=== PATIENT | female | born 1975 | race Two or more races ===

== ENCOUNTER 2020-05-03 15:06 | Outpatient (REF) | payer OTHER, SELFPAY ==
--- NOTE | 2020-05-03 | MM_ITS ---
EXAMINATION: MM DIAGNOSTIC DIGITAL BREAST TOMOSYNTHESIS, BILATERAL US DIAGNOSTIC ULTRASOUND BREAST, RIGHT CLINICAL INFORMATION: Patient notes new palpable area of concern upper outer right breast since 04/12/2020. No discharge. The lifetime risk of breast cancer based on the Tyrer-Cuzick Model is 16%. COMPARISON: Mammography: 06/27/2019, 11/04/2018, 08/29/2017, 06/27/2016; ultrasound left breast 07/07/2016, ultrasound right breast 06/27/2019 and 12/30/2019 TECHNIQUE: Digital breast tomosynthesis is performed in both the craniocaudal and mediolateral oblique views along with computer-aided detection (CAD). Synthesized 2D images are generated from the tomosynthesis. Additional right MLO view is provided. Symptom marker placed over area of concern upper outer right breast. Ultrasound right breast is targeted to the upper outer quadrant. Patient is able to point to area of new palpable concern at time of imaging. Palpable concern superior and medial to prior cyst. Grayscale imaging and color Doppler are performed without and with harmonics. FINDINGS: The breasts are heterogeneously dense, which may obscure small masses (ACR BI-RADS breast composition Category c). Mammography shows no significant changes from prior studies. Parenchymal asymmetry upper right breast is decreased since 2018. There is no developing density. Neither breast shows significant mass or architectural abnormality or abnormal calcifications. The axilla and skin contours are unremarkable. Ultrasound demonstrates a simple cyst lateral right 10:00 position 9 cm from nipple measuring 1.2 x 0.9 x 0.6 cm. Prior measurements 1.2 x 0.7 x 0.7 cm on ultrasound 12/30/2019 and 1.5 x 0.9 x 0.9 cm on ultrasound 06/27/2019. There is no other cystic or solid mass or architectural abnormality or focal duct ectasia in the targeted areas. No skin thickening or edema tracking in soft tissue planes. Results are discussed with the patient at time of visit. Patient should be managed based on the clinical impression. If clinically indicated, further evaluation may be considered with surgical consult. Decision to proceed with biopsy should be based on clinical grounds and degree of clinical concern. MM/MM tomosynthesis diagnostic BI IMPRESSION: 1. No mammographic evidence of malignancy or significant change from prior studies. 2. Stable simple cyst lateral upper outer right breast. No solid mass or architectural abnormality. ASSESSMENT: BI-RADS 2: Benign RECOMMENDATION: 1. Patient should be managed based on the clinical impression. If clinically indicated, further evaluation may be considered with surgical consult. Decision to proceed with biopsy should be based on clinical grounds and degree of clinical concern. 2. Otherwise, routine annual screening mammography. This patient's information was entered into a reminder system with a target due date for their next mammogram.
== END 2020-05-03 15:07 | disposition home or self-care (01) ==
LOC: HO.MAMMO 15:06
PROVIDERS: PCP Family Medicine; Visit Provider Family Medicine
DX: N63.11 Unspecified lump in the right breast, upper outer quadrant (principal)
CPT/HCPCS: 76642; 77062; 77063; 77066; 77067

== ENCOUNTER 2021-03-01 08:38 | Emergency (ER) | payer OTHER, SELFPAY ==
--- NOTE | ~2021-03-01 | XR_ITS ---
EXAMINATION: XR CERVICAL SPINE CLINICAL INFORMATION: Neck pain. No known trauma. COMPARISON: None TECHNIQUE: Cervical spine is imaged in 4 views. FINDINGS: The vertebral bodies are normal in height. There is no cervical vertebral compression, disc narrowing, erosive change, destructive process, or prevertebral soft tissue swelling. There is normal bony mineralization. Some minor anterior vertebral body spurring is present mid cervical spine. The odontoid is unremarkable. Lung apices show no pneumothorax. There are chain jinny seen at the left medial apex. XR/XR cervical spine 3V IMPRESSION: Minor spurring cervical vertebral bodies. No vertebral compression, disc narrowing, or spondylolisthesis.
[2021-03-01 08:42] VITALS: BP 123/63; PULSE 66; RESP 16; TEMP 36.7; O2SAT 96
--- NOTE | 2021-03-01 08:46 | ED_ITS ---
HPI - General Adult General Chief complaint: General Medical Stated complaint: neck, shoulder pain Time Seen by Provider: 03/01/21 08:46 Source: patient Mode of arrival: ambulatory Limitations: no limitations History of Present Illness HPI narrative: Patient with cervical pain radiating to the right shoulder and elbow. Pain started a few months back, now with increasing pain in neck and shoulder. Onset (ago): week(s) Radiation: extremity Severity: mild Pain Consistency: intermittent Associated symptoms: denies other symptoms Related Data Previous Rx's Medication Instructions Recorded cyclobenzaprine 10 mg tablet 10 mg PO TID #10 tab 03/01/21 naproxen 500 mg tablet (Naprosyn) 500 mg PO BID #20 tab 03/01/21 Allergies Allergy/AdvReac Type Severity Reaction Status Date / Time No Known Allergies Allergy Unverified 01/05/20 16:19 cats/dogs Allergy Unknown itch Uncoded 08/27/15 00:00 Numerous food and Allergy Unknown Uncoded 10/04/14 00:00 environmenta Review of Systems Constitutional: Constitutional: Reports no additional constitutional complaints Eyes: Eyes: Reports no additional eye complaints ENT: Denies dizziness Cardiovascular: Cardiovascular: Reports no additional cardiovascular complaints Respiratory: Respiratory: Reports as per HPI Gastrointestinal: Gastrointestinal: Reports no additional gastrointestinal complaints Genitourinary: Genitourinary: Reports no additional female genitourinary complaints Musculoskeletal: Musculoskeletal: Reports no additional musculoskeletal complaints Integumentary/Breasts: Skin/Breast: Denies rash Neurologic: Reports system reviewed and no additional complaints, except as documented, Denies dizziness and Denies Sensory deficit (Neuro) Psychiatric: Psychiatric: Denies anxiety FOR[facility]LY [facility] Social History Social History Advance Directives: No Advance Directives Information Provided: No Physical Exam Vital Signs: Vital Signs: Last Vital Signs Temp 98.0 F 03/01/21 08:42 Pulse 66 03/01/21 08:42 Resp 16 03/01/21 08:42 BP 123/63 03/01/21 08:42 Pulse Ox 96 03/01/21 08:42 Body Mass Index 20.0 Const: General: healthy appearing Nutritional Appearance: average body habitus Orientation/consciousness: oriented to person and patient oriented x3 Limitations: no limitations HENMT: Head: Yes normal to inspection Ears: external ears normal General nose exam: Normal external nose present Mouth: Normal oral and palatal mucosa present and oropharynx normal Throat: Yes posterior oropharynx normal Eyes: General: appearance normal, both eyes and all related structures Neck: Other: Pain with range of motion of neck with radiation down right arm Neck: Yes normal visual inspection Chest: Chest palpation & inspection: normal inspection of the chest Resp: Auscultation: clear to auscultation bilaterally Cardio: Jugular venous distension: no JVD Rate: regular rate Rhythm: regular rhythm Heart sounds: S1 normal heart sound present and S2 normal heart sound present GI: Inspection: Yes normal to inspection Palpation (GI): Soft to palpation, nontender and No hepatosplenomegaly present Auscultation: normal bowel sounds : General: Yes no CVA tenderness Back/Spine/Pelvis: Back: no CVA tenderness Skin: General skin exam: no rashes or lesions noted Neuro: General: oriented to person and patient oriented x3 Cranial nerves: Yes CN's II-XII intact bilaterally Motor exam (neuro): 5/5 motor strength present throughout Sensory Exam: No Sensory deficit (Neuro) Extrem: General: Yes normal to inspection Psych: Appearance: grossly normal Course Reevaluation(s) Reevaluation #1: patient with radicular neck pain, xray with minor arthritic changes will dc on NSAIDS and flexeril Time: 10:02 Medical Decision Making Imaging Data cervical: Radiologist's impression: IMPRESSION: Minor spurring cervical vertebral bodies. No vertebral compression, disc narrowing, or spondylolisthesis. Discharge Plan Discharge Clinical Impression: Cervical radicular pain Patient Disposition: Home, Self-Care Instructions: Cervical Radiculopathy (ED) Prescriptions: New cyclobenzaprine 10 mg tablet 10 mg PO TID Qty: 10 RF: 0 naproxen [Naprosyn] 500 mg tablet 500 mg PO BID Qty: 20 RF: 0 Referrals: Magali Ohara MD [Primary Care Provider] - 1 week
[2021-03-01] MEDS: Ketorolac Tromethamine 60 MG/2 ML VIAL IM (08:57)
== END 2021-03-01 10:10 | disposition home or self-care (01) ==
PROVIDERS: Emergency Provider Emergency Medicine; PCP Family Medicine
DX: M54.12 Radiculopathy, cervical region (principal)
CPT/HCPCS: 72040; 96372; 99283; 99284; J1885

== ENCOUNTER 2021-04-18 08:00 | Outpatient (RCR) | payer OTHER, SELFPAY | END 2021-04-25 13:15 | disposition home or self-care (01) | LOC: HO.PT 08:00 | PROVIDERS: PCP Family Medicine; Visit Provider Family Medicine | DX: M54.2 Cervicalgia (principal) | CPT/HCPCS: 97110; 97140; 97161 ==

== ENCOUNTER 2021-05-15 10:55 | Outpatient (REF) | payer OTHER, SELFPAY ==
--- NOTE | ~2021-05-15 | MM_ITS ---
EXAMINATION: MM SCREENING DIGITAL BREAST TOMOSYNTHESIS, BILATERAL CLINICAL INFORMATION: Screening. Asymptomatic. The lifetime risk of breast cancer based on the Tyrer-Cuzick Model is 13%. COMPARISON: Mammography: 05/03/2020, 06/27/2019, 11/04/2018, 08/29/2017, 06/27/2016; targeted right breast ultrasound 05/03/2020, 12/30/2019, 06/27/2019 TECHNIQUE: Digital breast tomosynthesis is performed in both the craniocaudal and mediolateral oblique views along with computer-aided detection (CAD). Synthesized 2D images are generated from the tomosynthesis. FINDINGS: The breasts are heterogeneously dense, which may obscure small masses (ACR BI-RADS breast composition Category c). There are no significant masses, abnormal calcifications, or other abnormalities. There is a fibronodular parenchymal pattern similar to prior studies. There is no developing density or architectural abnormality. The axilla and skin contours are unremarkable. No significant changes. MM/MM tomosynthesis screening BI IMPRESSION: No mammographic evidence of malignancy. ASSESSMENT: BI-RADS 1: Negative RECOMMENDATION: Routine annual mammography screening. This patient's information was entered into a reminder system with a target due date for their next mammogram.
== END 2021-05-15 10:56 | disposition home or self-care (01) ==
LOC: HO.MAMMO 10:55
PROVIDERS: Visit Provider Family Medicine
DX: Z12.31 Encounter for screening mammogram for malignant neoplasm of breast (principal)
CPT/HCPCS: 77063; 77067

== ENCOUNTER 2021-12-09 10:10 | Outpatient (REF) | payer OTHER, SELFPAY ==
--- NOTE | ~2021-12-09 | XR_ITS ---
EXAMINATION: XR CERVICAL SPINE CLINICAL INFORMATION: Cervical pain COMPARISON: Chest x-ray 03/01/2021 TECHNIQUE: 3 views of the cervical spine were obtained. FINDINGS: Normal cervical lordosis. The vertebral heights, alignment and disc heights are normal. There is minimal ventral lordosis C5-C6 disc level. No visible acute fracture or dislocation seen. The prevertebral and paravertebral soft tissues are normal. XR/XR cervical spine 3V IMPRESSION: Unremarkable cervical spine examination.
[2021-12-09 11:21] LABS: MANUAL DIFF FLAG NO
[2021-12-09 11:37] LABS: Basophils Percent Auto 0.3 % (0-2); Eosinophils Absolute Auto 0.1 X10*3/uL (0.0-0.4); Eosinophils Percent Auto 1.2 % (0-4); Hematocrit 41.9 % (37.0-47.0); Hemoglobin 14.2 g/dl (12.0-16.0); Imm Gran Abs Auto 0.03 X10*3/uL (0.00-0.03); Imm Gran Pct Auto 0.4 % (0.0-0.4); Lymphocytes Absolute Auto 1.5 X10*3/uL (1.2-4.9); Lymphocytes Percent Auto 21.5 % (20-40); Mean Corpuscular HGB Conc 33.9 g/dl (31.0-35.0); Mean Corpuscular Hemoglobin 31.5 pg (27.0-33.0); Mean Corpuscular Volume 92.9 fL (80.0-98.0); Mean Platelet Volume 10.8 fL (9.4-12.3); Monocytes Absolute Auto 0.4 X10*3/uL (0.1-1.2); Monocytes Percent Auto 5.9 % (2-11); Neutrophils Absolute Auto 4.8 x10*3/uL (2.0-8.3); Neutrophils Percent Auto 70.7 % (45-73); Platelet Count 227 X10*3/uL (160-400); Red Blood Count 4.51 X10*6/uL (4.20-5.50); Red Cell Distribution Width 11.9 % (11.0-16.0); White Blood Count 6.8 X10*3/uL (4.8-10.8)
[2021-12-09 12:27] LABS: TSH reflex Free T4 1.63 uIU/mL (0.32-4.0); Vitamin B12 314 pg/mL (200-900)
[2021-12-09 12:28] LABS: Alanine Aminotransferase 10 U/L (0-31); Albumin Level 4.4 g/dL (3.5-5.0); Alkaline Phosphatase 57 U/L (39-117); Anion Gap 14 (12-20); Aspartate Amino Transferase 14 U/L (5-31); Bilirubin Total 0.9 mg/dL (0.0-1.0); Blood Urea Nitrogen 10 mg/dL (9-16); Calcium 8.9 mg/dL (8.4-10.2); Carbon Dioxide 26 mmol/L (22-29); Chloride 103 mmol/L (96-108); Cholesterol 234 mg/dL; Estimated Glomerular Filt Rate > 60; Glucose Fasting 87 mg/dL (60-99); HDL Cholesterol 77 mg/dL; LDL Cholesterol Calculated 141 mg/dl; Potassium 4.3 mmol/L (3.3-5.1); Sodium 139 mmol/L (135-145); Total Protein 7.4 g/dL (6.5-8.0); Triglycerides 83 mg/dL
[2021-12-14 12:42] LABS: Vitamin D 25-OH, D2 <4 ng/mL; Vitamin D 25-OH, D3 18 ng/mL; Vitamin D 25-OH, Total 18 ng/mL (30-100)
== END 2021-12-09 10:11 | disposition home or self-care (01) ==
LOC: HO.HMGCX 10:10
PROVIDERS: PCP Internal Medicine; Visit Provider Internal Medicine
DX: K21.9 Gastro-esophageal reflux disease without esophagitis (principal); M19.90 Unspecified osteoarthritis, unspecified site; M51.26 Other intervertebral disc displacement, lumbar region; M54.12 Radiculopathy, cervical region; M79.7 Fibromyalgia; N39.3 Stress incontinence (female) (male); Z76.89 Persons encountering health services in other specified circumstances
CPT/HCPCS: 36415; 72040; 80053; 80061; 82306; 82607; 84443; 85025

== ENCOUNTER 2022-02-13 12:56 | Outpatient (REF) | payer OTHER, SELFPAY ==
--- NOTE | ~2022-02-13 | XR_ITS ---
EXAMINATION: XR SHOULDER, RIGHT CLINICAL INFORMATION: Strain injury. COMPARISON: Radiographs dated 05/07/2015. TECHNIQUE: AP external rotation, Grashey, scapular Y, and axillary views of the right shoulder. FINDINGS: Bony alignment and mineralization are normal. The glenohumeral joint is intact. The acromioclavicular and coracoclavicular interval are normal. There is no fracture or dislocation. There is increased calcific tendinitis of the right rotator cuff insertion. No foreign body is seen. There is no right pneumothorax. XR/XR shoulder RT min 2V IMPRESSION: 1. No fracture or dislocation is seen. 2. There is increased calcific tendinitis of the right rotator cuff insertion.
== END 2022-02-13 12:57 | disposition home or self-care (01) ==
LOC: HO.XRAY 12:56
PROVIDERS: PCP Internal Medicine; Visit Provider Nurse Practitioner Women's Health
DX: S46.011A Strain of muscle(s) and tendon(s) of the rotator cuff of right shoulder, initial encounter (principal)
CPT/HCPCS: 73030

== ENCOUNTER 2022-03-06 15:12 | Outpatient (REF) | payer OTHER, SELFPAY ==
--- NOTE | ~2022-03-06 | MR_ITS ---
EXAMINATION: MR SHOULDER WITHOUT CONTRAST, RIGHT CLINICAL INFORMATION: Right shoulder pain and decreased range of motion. Evaluate for rotator cuff tendon tear. COMPARISON: Most recent right shoulder radiograph dated 02/13/2022. TECHNIQUE: MRI of the right shoulder without contrast was performed on a high-field scanner. FINDINGS: ROTATOR CUFF: Ovoid low T1/low T2 signal along the distal aspect of the infraspinatus tendon measuring 1.1 x 0.4 x 1.0 cm with adjacent edema, consistent with calcific tendinitis and similar when compared to the prior radiograph. Mild degenerative cystic change within the adjacent greater tuberosity. No measurable rotator cuff tendon tear. No muscle atrophy or fatty infiltration. BICEPS: Intact. CORACOACROMIAL ARCH: The undersurface of the acromion is minimally curved with no subacromial spur. The acromioclavicular joint is normal. LABRUM/CAPSULE: No displaced labral tear. Intact joint capsule. GLENOHUMERAL JOINT/MARROW: Intact articular cartilage. No concerning lytic or blastic osseous lesion. No acute fracture or dislocation. MR/MR shoulder RT wo con IMPRESSION: Distal infraspinatus calcific tendinitis with adjacent edema, similar when compared to the prior radiograph. No measurable rotator cuff tendon tear.
== END 2022-03-06 15:13 | disposition home or self-care (01) ==
LOC: HO.MRI 15:12
PROVIDERS: Visit Provider Nurse Practitioner Women's Health
DX: S46.011A Strain of muscle(s) and tendon(s) of the rotator cuff of right shoulder, initial encounter (principal); X58.XXXA Exposure to other specified factors, initial encounter; Y93.9 Activity, unspecified; Y92.9 Unspecified place or not applicable; Y99.9 Unspecified external cause status
CPT/HCPCS: 73221

== ENCOUNTER 2022-05-21 10:54 | Outpatient (REF) | payer OTHER, SELFPAY ==
--- NOTE | ~2022-05-21 | MM_ITS ---
EXAMINATION: MM SCREENING DIGITAL BREAST TOMOSYNTHESIS, BILATERAL CLINICAL INFORMATION: Screening. Asymptomatic. The lifetime risk of breast cancer based on the Tyrer-Cuzick Model is 16%. COMPARISON: Mammography: 05/15/2021, 05/03/2020, 06/27/2019, 11/04/2018; right breast ultrasound 05/03/2020, 12/30/2019, 06/27/2019 TECHNIQUE: Digital breast tomosynthesis is performed in both the craniocaudal and mediolateral oblique views along with computer-aided detection (CAD). Synthesized 2D images are generated from the tomosynthesis. FINDINGS: The breasts are heterogeneously dense, which may obscure small masses (ACR BI-RADS breast composition Category c). Parenchymal pattern is similar to prior studies. There is fine fibronodular parenchymal pattern with scattered asymmetries upper breasts. There is no developing density or architectural abnormality. No abnormal calcifications. The axilla are unremarkable. The skin contours are smooth. No significant changes. MM/MM tomosynthesis screening BI IMPRESSION: No mammographic evidence of malignancy. ASSESSMENT: BI-RADS 2: Benign RECOMMENDATION: Routine annual mammography screening. This patient's information was entered into a reminder system with a target due date for their next mammogram.
== END 2022-05-21 10:55 | disposition home or self-care (01) ==
LOC: HO.MAMMO 10:54
PROVIDERS: PCP Internal Medicine; Visit Provider Family Medicine
DX: Z12.31 Encounter for screening mammogram for malignant neoplasm of breast (principal)
CPT/HCPCS: 77063; 77067

== ENCOUNTER 2023-01-23 13:26 | Outpatient (AMB) | payer OTHER, SELFPAY ==
[2023-01-23 13:29] VITALS: BMI 22.5
--- NOTE | 2023-01-23 13:29 | MHC.OFFVIS ---
Intake Vital Signs 01/23/23 13:29 Height 5 ft 2 in Weight 123 lb BMI 22.5 Intake Visit Reasons: New patient Annual Intake Note: has miss some periods back in may and june, menses have gotten heavier and pain A Operator Required: No Information Interpreted: non-clinical & clinical Director Title: Director Title Present (Violeta) Allergies prednisone Adverse Reaction (Mild, Verified 01/23/23 13:33) rectal bleeding cats/dogs Allergy (Unknown, Uncoded 01/23/23 13:33) itch Numerous food and environmenta Allergy (Unknown, Uncoded 01/23/23 13:33) hive Medication List - Last Reconciled 01/23/23 by Niya Dorsey CNM cetirizine 10 mg PO DAILY PRN cholecalciferol (vitamin D3) 50 mcg PO DAILY famotidine 20 mg PO BID PRN fluticasone propionate 50 mcg/actuation (Flonase Allergy Relief) 1 spray intranasal DAILY hydrocortisone 1% (Anti-Itch (hydrocortisone)) 1 appl topical BID-QID PRN ketotifen fumarate 0.025%(0.035%) ([place]) 1 drp ophthalmic (eye) BID lidocaine HCl-hydrocortison ac 3-0.5 % 1 appl MO BID 10 days pregabalin 75 mg PO BID 90 days Is last menstrual period known: Yes Last menstrual period: 01/02/23 Post menopausal: No HPI New patient Annual HPI Details 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 She is doing pretty well though her periods have gotten little bit heavier and cramp ear. She also missed a period in May in June their normal otherwise she takes Midol in the purple box for the cramps when she gets a period and it works well for her. Tele health concerns she has of the herniated discs sent allergies she gets cortisone injections every now and then and she goes to physical therapy for her back when she needs to. She also has some stress incontinence which is a challenge and she wears panty liners to manage that. She does do Kegel exercises and she also eats well and takes care of herself and lifts hand weights at home. [facility] Medical History Ectopic Multiple allergies Herniated lumbar disc without myelopathy GERD (gastroesophageal reflux disease) Fibromyalgia Surgical History H/O tubal ligation Family History (Updated 01/23/23 @ 13:36 by DYLLAN Rodarte) Maternal Aunt Breast cancer Mother Fibromyalgia Paternal Grandfather Colon cancer Social History Housing: House Patient Tobacco Use Status: Never used Tobacco e-Cigarette/Vaping Use: Never Used Second Hand Smoke Exposure: No service: No Current occupational status: disabled Cognitive needs: No Hearing needs: No Vision needs: No Female Reproductive History Menstrual Age of Menarche: 13 Duration of menses: 3-5 days Date of last menstrual period: 01/02/23 control method: other (tubal ligation) Total pregnancies: 4 Full term: 2 Number of Living Children: 2 Ab spontaneous: 1 Ectopics: 1 Date of last pap smear: 08/16/04 (negative) History of abnormal pap smear: Yes Date of Mammogram: 05/21/22 Physical Exam Vital Signs: BMI result Body Mass Index 22.5 Const General: healthy appearing, comfortable, no acute distress, well developed and alert Nutritional Appearance: average body habitus Orientation/consciousness: patient oriented x3 Limitations: no limitations HEENT Head: Yes normocephalic Neck Neck: Yes normal visual inspection Chest Chest palpation & inspection: normal inspection of the chest Breast/axilla inspection: normal inspection of the breasts and normal inspection of the axillae Breast/axilla palpation: normal palpation of the breasts and normal palpation of the axillae Resp Effort & Inspection: normal respiratory effort GI Inspection: Yes normal to inspection, No Abdominal wall edema and No distended Palpation (GI): Soft to palpation and nontender Other: External service order clerk exam within normal limits vagina is pink and moist and healthy cervix multiparous pink moist with very clear to beige normal appearing mucus. Cervix long close thick mobile nontender uterus is anteverted mobile nontender feels slightly enlarged to about an 8 weeks size anterior. Adnexa nontender very good tone with Kegel. General: Yes bladder normal to palpation External Female Exam: normal external appearance and normal appearance of the urethra Speculum Exam - Vagina: normal appearance of the vagina, normal palpation and normal vaginal discharge Speculum Exam - Cervix: normal appearance of the cervix, normal palpation and nontender Bimanual exam- vagina & uterus: normal bimanual exam, normal palpation, uterine size normal, bladder normal to palpation, consistency normal, normal palpation, uterine mobility normal, uterine shape normal, No Cervical tenderness present, non-tender and no cervical motion tenderness Bimanual Exam- Adnexa, other: normal adnexae, no masses, normal and No adnexal tenderness Neuro General: patient oriented x3 Assessment & Plan Assessment & Plan (1) Stress incontinence: Code(s): N39.3 - Stress incontinence (female) (male) (2) Encounter for routine gynecological examination: Code(s): Z01.419 - Encounter for gynecological examination (general) (routine) without abnormal findings (3) Bulky or enlarged uterus: Comment: May be within normal limits anteverted feels possibly consistent with an 8 weeks size uterus will get ultrasound to see if there are fibroids. Code(s): N85.2 - Hypertrophy of uterus (4) H/O dysmenorrhea: Code(s): Z87.42 - Personal history of other diseases of the female genital tract Plan -----Discussed in this visit the following: healthy balanced diet, regular and consistent exercise, getting recommended health screens, doing the best she can for her particular health concerns, kegel exercises, pap smear screening and followup recommendations, mammography screening and SBE, normal changes in cycles in her life stage--- . She is up-to-date on her mammograms. She is doing her best to manage her weight in fact she is aware that she has gained about 10 lb and she feels it so she is mindful. She is within the normal weight range and I reassured her of that. Discussed ordering a pelvic ultrasound to see if she might have fibroids though her uterus is not that enlarged and discussed that if they were found she would most likely not be in the range of needing surgical intervention. Since the might all is helping her with her cramps she probably would not be interested in further intervention though 1 that might be a possibility would include the Mirena IU S. It have some other side effects that could be discussed she were interested. The missed. Could be down to either side effects from other medications or random this or lona menopausal changes she does experience hot flashes occasionally.. She is very good tone with Kegel and she does her own actually but since she does have some incontinence am placing a referral for physical therapy for her she is familiar with [facility] on [facility] 4th floor because she goes there for her back periodically. She is interested in this We will see her after the ultrasound to discuss the results. Orders: Orders CT NG by PCR Today Z20.2 - Contact with and (suspected) exposure to infections with a predominantly sexual mode of transmission US pelvic and transvaginal Today N39.3 - Stress incontinence (female) (male), N85.2 - Hypertrophy of uterus, Z01.419 - Encounter for gynecological examination (general) (routine) without abnormal findings, Z87.42 - Personal history of other diseases of the female genital tract Bacterial Vaginosis Panel Today Z20.2 - Contact with and (suspected) exposure to infections with a predominantly sexual mode of transmission Pap Smear Today C53.9 - Malignant neoplasm of cervix uteri, unspecified Referrals Pelvic Smelting Engineer Referral M62.89 - Other specified disorders of muscle, N39.3 - Stress incontinence (female) (male), Z01.419 - Encounter for gynecological examination (general) (routine) without abnormal findings Coding Level of Care Code New Pt Prev Care 40-64y(75026) Diagnoses Stress incontinence N39.3 Encounter for routine gynecological examination Z01.419 Bulky or enlarged uterus N85.2 H/O dysmenorrhea Z87.42
== END 2023-01-23 15:44 | disposition home or self-care (01) ==
PROVIDERS: PCP Internal Medicine; Visit Provider Advanced Practice Midwife
DX: Z01.419 Encounter for gynecological examination (general) (routine) without abnormal findings (principal); N39.3 Stress incontinence (female) (male); N85.2 Hypertrophy of uterus; Z87.42 Personal history of other diseases of the female genital tract
CPT/HCPCS: 99386

== ENCOUNTER 2023-01-23 13:26 | Outpatient (REF) | payer OTHER, SELFPAY ==
[2023-01-23 17:24] LABS: CT PCR NOT DETECTED (Not Detect.); NG PCR NOT DETECTED (Not Detect.)
[2023-01-24 11:55] LABS: BV Int Neg Control Negative (Negative); BV Int Pos Control Positive (Positive)
[2023-01-29 01:38] LABS: HPV mRNA E6/E7 rflx Not Detected (Not Detected)
== END 2023-01-23 13:27 | disposition home or self-care (01) ==
LOC: HO.LNP 13:26
PROVIDERS: PCP Internal Medicine; Visit Provider Advanced Practice Midwife
DX: Z01.419 Encounter for gynecological examination (general) (routine) without abnormal findings (principal); Z11.51 Encounter for screening for human papillomavirus (HPV); C53.9 Malignant neoplasm of cervix uteri, unspecified; Z20.2 Contact with and (suspected) exposure to infections with a predominantly sexual mode of transmission; N39.3 Stress incontinence (female) (male); N85.2 Hypertrophy of uterus; Z87.42 Personal history of other diseases of the female genital tract
CPT/HCPCS: 0353U; 87480; 87510; 87624; 87660; 88142

== ENCOUNTER 2023-02-23 08:18 | Outpatient (REF) | payer OTHER, SELFPAY ==
[2023-02-23 08:39] LABS: MANUAL DIFF FLAG NO
[2023-02-23 09:08] LABS: Basophils Percent Auto 0.2 % (0-2); Eosinophils Absolute Auto 0.1 X10*3/uL (0.0-0.4); Eosinophils Percent Auto 0.8 % (0-4); Hematocrit 39.9 % (37.0-47.0); Hemoglobin 13.7 g/dl (12.0-16.0); Imm Gran Abs Auto 0.02 X10*3/uL (0.00-0.03); Imm Gran Pct Auto 0.3 % (0.0-0.4); Lymphocytes Absolute Auto 1.7 X10*3/uL (1.2-4.9); Lymphocytes Percent Auto 26.7 % (20-40); Mean Corpuscular HGB Conc 34.3 g/dl (31.0-35.0); Mean Corpuscular Hemoglobin 30.9 pg (27.0-33.0); Mean Corpuscular Volume 89.9 fL (80.0-98.0); Mean Platelet Volume 10.6 fL (9.4-12.3); Monocytes Absolute Auto 0.4 X10*3/uL (0.1-1.2); Monocytes Percent Auto 5.8 % (2-11); Neutrophils Absolute Auto 4.1 x10*3/uL (2.0-8.3); Neutrophils Percent Auto 66.2 % (45-73); Platelet Count 247 X10*3/uL (160-400); Red Blood Count 4.44 X10*6/uL (4.20-5.50); White Blood Count 6.2 X10*3/uL (4.8-10.8)
[2023-02-23 09:42] LABS: Alanine Aminotransferase 6 U/L (0-31); Albumin Level 4.1 g/dL (3.5-5.0); Alkaline Phosphatase 59 U/L (39-117); Anion Gap 11 (12-20); Aspartate Amino Transferase 12 U/L (5-31); Bilirubin Total 0.6 mg/dL (0.0-1.0); Blood Urea Nitrogen 10 mg/dL (9-16); Calcium 9.1 mg/dL (8.4-10.2); Carbon Dioxide 25 mmol/L (22-29); Chloride 106 mmol/L (96-108); Cholesterol 215 mg/dL (<200); Estimated Glomerular Filt Rate > 60; Glucose Fasting 91 mg/dL (60-99); HDL Cholesterol 59 mg/dL (>40); LDL Cholesterol Calculated 139 mg/dL (<100); Potassium 4.2 mmol/L (3.3-5.1); Sodium 138 mmol/L (135-145); Total Protein 7.3 g/dL (6.5-8.0); Triglycerides 86 mg/dL (<150)
[2023-02-23 09:57] LABS: TSH reflex Free T4 1.59 uIU/mL (0.32-4.0)
== END 2023-02-23 08:19 | disposition home or self-care (01) ==
LOC: HO.LAB 08:18
PROVIDERS: PCP Internal Medicine; Visit Provider Internal Medicine
DX: M79.7 Fibromyalgia (principal); M51.26 Other intervertebral disc displacement, lumbar region; K21.9 Gastro-esophageal reflux disease without esophagitis; N39.3 Stress incontinence (female) (male); E55.9 Vitamin D deficiency, unspecified; M19.90 Unspecified osteoarthritis, unspecified site
CPT/HCPCS: 36415; 80053; 80061; 84443; 85025

== ENCOUNTER 2023-02-24 11:03 | Outpatient (AMB) | payer OTHER, SELFPAY ==
[2023-02-24 11:04] VITALS: BP 120/76; PULSE 75; O2SAT 100; BMI 22.7
--- NOTE | 2023-02-24 11:04 | MHC.PC.OV ---
Vital Signs 02/24/23 11:04 Height 5 ft 2 in Weight 124 lb 2 oz BMI 22.7 BP 120/76 Blood Pressure Location Rt brachial Position Sitting Pulse 75 Pulse Source Pulse Oximeter Pulse Oximetry (%) 100 Oxygen Delivery Method Room Air Intake Visit Reasons: 3M follow up fibromyalgia, Rescheduled from 01/23 Allergies prednisone Adverse Reaction (Mild, Verified 02/24/23 11:05) rectal bleeding cats/dogs Allergy (Unknown, Uncoded 01/23/23 13:33) itch Numerous food and environmenta Allergy (Unknown, Uncoded 01/23/23 13:33) hive Medication List - Last Reconciled 02/24/23 by Rodríguez Bonds MD cetirizine 10 mg PO DAILY PRN cholecalciferol (vitamin D3) 50 mcg PO DAILY famotidine 20 mg PO BID PRN fluticasone propionate 50 mcg/actuation (Flonase Allergy Relief) 1 spray intranasal DAILY hydrocortisone 1% (Anti-Itch (hydrocortisone)) 1 appl topical BID-QID PRN ketotifen fumarate 0.025%(0.035%) ([place]) 1 drp ophthalmic (eye) BID lidocaine HCl-hydrocortison ac 3-0.5 % 1 appl SC BID 10 days pregabalin 75 mg PO BID 90 days Tobacco use date assessed: 02/24/23 Dental Screening Dental Screen Date: 02/24/23 Did you have a dental visit in the last 12 months?: Yes Did you have a dental problem in the last 6 months where you did not have access to dental care?: No Was dental information given to patient?: Patient has dentist HPI 3M follow up fibromyalgia, Rescheduled from 01/23 HPI Details Patient is a 47-year-old female Patient is complaining of pigmentation on her face which has been getting worse She is requesting a dermatology referral which I have placed for her Labs done recently reviewed with the patient Patient have a history of fibromyalgia which was initially diagnosed by teletype adjuster years ago. Currently she is on Lyrica 75 mg b.i.d. she is doing well with this medication She also have acid reflux patient had a barium swallow done at [facility] and was started on famotidine 20 mg b.i.d.. She was instructed to avoid NSAIDs, medication refill sent Allergies: Patient is going to Dr. Boyce and getting allergy shots every 3 or 4 week. She is also on Flonase nasal spray and Zyrtec. History of herniated disc at L4-L5, stable at this time usually pain radiates to left leg patient says that she is disabled because of that. She goes to a pain management at [facility] for back injections. Patient sees that she was having back pain and got a cortisone injection since she has seen last. Stress incontinence. Continue Kegel exercises Follow-up 3 months for physical exam [facility] Medical History Ectopic Multiple allergies Herniated lumbar disc without myelopathy GERD (gastroesophageal reflux disease) Fibromyalgia Surgical History H/O tubal ligation Family History Maternal Aunt Breast cancer Mother Fibromyalgia Paternal Grandfather Colon cancer Social History Housing: House Patient Tobacco Use Status: Never used Tobacco e-Cigarette/Vaping Use: Never Used Second Hand Smoke Exposure: No service: No Current occupational status: disabled Cognitive needs: No Hearing needs: No Vision needs: No Female Reproductive History Menstrual Age of Menarche: 13 Questionnaire PHQ-9 Over the last 2 weeks, how often have you been bothered by any of the following problems? 1. Little interest or pleasure in doing things: not at all 2. Feeling down, depressed, or hopeless: not at all 3. Trouble falling or staying asleep, or sleeping too much: not at all 4. Feeling tired or having little energy: not at all 5. Poor appetite or overeating: not at all 6. Feeling bad about yourself - or that you are a failure or have let yourself or your family down: not at all 7. Trouble concentrating on things, such as reading the newspaper or watching television: not at all 8. Moving or speaking so slowly that other people could have noticed. Or the opposite - being so fidgety or restless that you have been moving around a lot more than usual: not at all 9. Thoughts that you would be better off or of hurting yourself in some way: not at all Total score: 0 Depression Screening Interpretation: Negative Depression Screening Done: Yes 28667 - PHQ-9 Billing: Yes Source: Developed by Drs. Pino Lynn, Randy Paul and colleagues, with an educational martita from [employer]. Thrive Questionnaire Date Thrive assessed: 12/06/21 AUDIT C Alcohol Use Questionnaire (AUDIT-C) 1. How often do you have a drink containing alcohol?: Never 3. How often do you have six or more drinks on one occasion?: Never Total Score: 0 Score Reviewed/Action Taken: Yes BEATRIZ-7 AMB Questionnaire BEATRIZ-7 Date BEATRIZ - 7 assessed: 02/24/23 Feeling nervous, anxious, or on edge: 0 = Not at all Not being able to stop or control worryin = Not at all Worrying too much about different things: 0 = Not at all Trouble relaxin = Not at all Being so restless that it is hard to sit still: 0 = Not at all Becoming easily annoyed or irritable: 0 = Not at all Feeling afraid as if something awful might happen: 0 = Not at all Total BEATRIZ-7 score (0-4 normal; 5-9 mild; 10-14 moderate; 15-21 severe): 0 Source: Developed by Drs. Pino Lnyn, Randy Paul and colleagues, with an educational martita from [employer]. BEATRIZ-7 Assessment Billing BEATRIZ-7 Assessment Tool: BEATRIZ-7 Assessment 36373 Review of Systems Const Denies chills and Denies fever(s) ENT Denies epistaxis and Denies nasal discharge Card Denies chest pain Resp Denies chest congestion, Denies cough and Denies hemoptysis GI Denies diarrhea and Denies nausea Skin/Breast Denies rash Neuro Reports no additional complaints Psych Reports no additional complaints Endo Reports no additional complaints Physical exam (Primary Care) Vital Signs: Last Vital Signs Pulse 75 02/24/23 11:04 BP 120/76 02/24/23 11:04 Pulse Ox 100 02/24/23 11:04 Oxygen Delivery Method Room Air 02/24/23 11:04 BMI result Body Mass Index 22.7 Tobacco/Smoking Status: Tobacco use Status Tobacco use date assessed 02/24/23 02/24/23 11:06 Patient Tobacco Use Status Never used Tobacco 02/24/23 11:06 e-Cigarette/Vaping Use Never Used 02/24/23 11:06 PHQ-9: PHQ-9 Score PHQ-9: Total score 0 02/24/23 11:56 Depression Screening Interpretation: Negative Thrive Assessment: Date of Thrive Assessment Date Thrive assessed 12/06/21 02/24/23 11:06 Const General: cooperative, comfortable and no acute distress Orientation/consciousness: patient oriented x3 HENMT Head: Yes normocephalic Eyes General: appearance normal, both eyes and all related structures Neck Neck: Yes supple Resp Effort & Inspection: normal respiratory effort, no cough and no stridor Cardio Rhythm: regular rhythm Heart sounds: S1 normal heart sound present and S2 normal heart sound present Skin General skin exam: turgor normal Neuro General: patient oriented x3, tone normal and moves all extremities Extrem Right lower extremity: no edema Left lower extremity: no edema Assessment and Plan Assessment & Plan (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 - Disorder of pigmentation, unspecified (2) Fibromyalgia: Code(s): M79.7 - Fibromyalgia (3) Herniated nucleus pulposus, L4-5 left: Code(s): M51.26 - Other intervertebral disc displacement, lumbar region (4) Acid reflux: Code(s): K21.9 - Gastro-esophageal reflux disease without esophagitis Qualifiers: Esophagitis presence: without esophagitis Qualified Code(s): K21.9 - Gastro-esophageal reflux disease without esophagitis (5) Stress incontinence in female: Code(s): N39.3 - Stress incontinence (female) (male) (6) Vitamin D deficiency: Code(s): E55.9 - Vitamin D deficiency, unspecified (7) Radiculitis of right cervical region: Code(s): M54.12 - Radiculopathy, cervical region Plan Patient is a 47-year-old female Patient is complaining of pigmentation on her face which has been getting worse She is requesting a dermatology referral which I have placed for her Labs done recently reviewed with the patient Patient have a history of fibromyalgia which was initially diagnosed by teletype adjuster years ago. Currently she is on Lyrica 75 mg b.i.d. she is doing well with this medication She also have acid reflux patient had a barium swallow done at [facility] and was started on famotidine 20 mg b.i.d.. She was instructed to avoid NSAIDs, medication refill sent Allergies: Patient is going to Dr. Boyce and getting allergy shots every 3 or 4 week. She is also on Flonase nasal spray and Zyrtec. History of herniated disc at L4-L5, stable at this time usually pain radiates to left leg patient says that she is disabled because of that. She goes to a pain management at [facility] for back injections. Patient sees that she was having back pain and got a cortisone injection since she has seen last. Stress incontinence. Continue Kegel exercises Follow-up 3 months for physical exam Orders: Referrals Dermatology Referral L81.9 - Disorder of pigmentation, unspecified Medications: New famotidine 20 mg PO BID PRN 90 tabs 0RF heartburn Refilled pregabalin 75 mg PO BID 180 caps 0RF 90 days Coding Level of Care Code Est Pt Level 4 (35437) Diagnoses Skin pigmentation disorder L81.9 Fibromyalgia M79.7 Herniated nucleus pulposus, L4-5 left M51.26 Gastroesophageal reflux disease without esophagitis K21.9 Esophagitis presence: without esophagitis Stress incontinence in female N39.3 Vitamin D deficiency E55.9 Radiculitis of right cervical region M54.12 Additional Codes BEATRIZ-7 Assessment Billing - BEATRIZ-7 Assessment Tool: BEATRIZ-7 Assessment 13636 ([id number])
== END 2023-02-24 12:37 | disposition home or self-care (01) ==
PROVIDERS: PCP Internal Medicine; Visit Provider Internal Medicine
DX: L81.9 Disorder of pigmentation, unspecified (principal); M79.7 Fibromyalgia; M51.26 Other intervertebral disc displacement, lumbar region; K21.9 Gastro-esophageal reflux disease without esophagitis; N39.3 Stress incontinence (female) (male); E55.9 Vitamin D deficiency, unspecified; M54.12 Radiculopathy, cervical region
CPT/HCPCS: 99214

== ENCOUNTER 2023-02-24 13:02 | Outpatient (REF) | payer OTHER, SELFPAY ==
--- NOTE | ~2023-02-24 | US_ITS ---
EXAMINATION: US PELVIS COMPLETE CLINICAL INFORMATION: Stress incontinence COMPARISON: None TECHNIQUE: Transabdominal and transvaginal imaging was performed. FINDINGS: The uterus measures 11.7 x 6.1 x 8.1 cm. A 5.5 x 4.4 x 6.1 cm transmural myoma in the left body of the uterus with a probable submucosal component. A regular homogeneous endometrium is identified measuring 0.4 cm. Nabothian cysts in the cervix. Both ovaries are of normal size and echogenicity. The right measures 2.5 x 2.1 x 2.0 cm for a volume of 1.3 mL. The left measures 2.5 x 1.1 x 1.7 cm for a volume of 2.4 mL. There is no pelvic free fluid. US/US pelvic and transvaginal IMPRESSION: A 6.1 cm transmural myoma in the left body of the uterus with a probable submucosal component.
== END 2023-02-24 13:03 | disposition home or self-care (01) ==
LOC: HO.US 13:02
PROVIDERS: PCP Internal Medicine; Visit Provider Advanced Practice Midwife
DX: N39.3 Stress incontinence (female) (male) (principal); Z87.42 Personal history of other diseases of the female genital tract
CPT/HCPCS: 76830; 76856

== ENCOUNTER 2023-03-17 09:01 | Outpatient (AMB) | payer OTHER, SELFPAY ==
--- NOTE | 2023-03-17 09:12 | A.OFFVIS_ITS ---
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 Operator Required: No Information Interpreted: non-clinical & clinical Accompanied by: Self / Same As Patient Allergies prednisone Adverse Reaction (Mild, Verified 03/17/23 09:14) rectal bleeding cats/dogs Allergy (Unknown, Uncoded 03/17/23 09:14) itch Numerous food and environmenta Allergy (Unknown, Uncoded 03/17/23 09:14) hive Is last menstrual period known: Yes Last menstrual period: 02/25/23 HPI Ultra sound follow up HPI Details Patient is here for a review of her ultrasound which was done to check for possible fibroids because her periods have gotten a little bit heavier and cramp ear and her uterus was very slightly enlarged. I reviewed the ultrasound with her which in fact shows a 6 cm fibroid. So this could in fact explain her heavier cramp ear periods and the slight enlargement. Discussed possible management she could consider a Mirena IUD to see if it would help she had 1 once for 5 years. She has had her tubes tied since then and she would rather not go back to that she says for now the periods are manageable and she will see what happens she knows that postmenopausally everything tends to shrink . She has not heard anything about the pelvic floor referral so she is going to stop down on her way out of the building to check on what is going on with that. [facility] Medical History Ectopic Multiple allergies Herniated lumbar disc without myelopathy GERD (gastroesophageal reflux disease) Fibromyalgia Surgical History H/O tubal ligation Family History Maternal Aunt Breast cancer Mother Fibromyalgia Paternal Grandfather Colon cancer Housing: House Patient Tobacco Use Status: Never used Tobacco e-Cigarette/Vaping Use: Never Used Second Hand Smoke Exposure: No service: No Current occupational status: disabled Cognitive needs: No Hearing needs: No Vision needs: No Female Reproductive History Menstrual Age of Menarche: 13 Date of last menstrual period: 02/25/23 Physical Exam Vital Signs: Last Vital Signs BP 118/66 03/17/23 09:13 BMI result Body Mass Index 22.6 Results Reviewed Results Reviewed: Patient: China Burns MR#: [id number] : 1975 Acct:[id number] Age/Sex: 47 / F ADM Date: 02/24/23 Loc: HO.US Attending Dr: Niya Dorsey CNM Ordering Physician: Niya Dorsey CNM Date of Service: 02/24/23 Procedure(s): US pelvic and transvaginal Accession Number(s): [id number] cc: Rodríguez Bonds MD; Niya Dorsey CNM~ EXAMINATION: US PELVIS COMPLETE CLINICAL INFORMATION: Stress incontinence COMPARISON: None TECHNIQUE: Transabdominal and transvaginal imaging was performed. FINDINGS: The uterus measures 11.7 x 6.1 x 8.1 cm. A 5.5 x 4.4 x 6.1 cm transmural myoma in the left body of the uterus with a probable submucosal component. A regular homogeneous endometrium is identified measuring 0.4 cm. Nabothian cysts in the cervix. Both ovaries are of normal size and echogenicity. The right measures 2.5 x 2.1 x 2.0 cm for a volume of 1.3 mL. The left measures 2.5 x 1.1 x 1.7 cm for a volume of 2.4 mL. There is no pelvic free fluid. US/US pelvic and transvaginal IMPRESSION: A 6.1 cm transmural myoma in the left body of the uterus with a probable submucosal component. Dictated By: Cate Tolentino MD Signed By: <Electronically signed by Cate Tolentino MD in OV> 02/26/23 1849 DD/ 1341 TD/TT: [employer] Dispatcher: Assessment & Plan Assessment & Plan (1) Bulky or enlarged uterus: Comment: May be within normal limits anteverted feels possibly consistent with an 8 weeks size uterus will get ultrasound to see if there are fibroids.//6 cm intramural fibroid noted discussed with patient. Code(s): N85.2 - Hypertrophy of uterus (2) H/O dysmenorrhea: Code(s): Z87.42 - Personal history of other diseases of the female genital tract (3) Stress incontinence: Code(s): N39.3 - Stress incontinence (female) (male) Plan Patient is here for a review of her ultrasound which was done to check for possible fibroids because her periods have gotten a little bit heavier and cramp ear and her uterus was very slightly enlarged. I reviewed the ultrasound with her which in fact shows a 6 cm fibroid. So this could in fact explain her heavier cramp ear periods and the slight enlargement. Discussed possible management she could consider a Mirena IUD to see if it would help she had 1 once for 5 years. She has had her tubes tied since then and she would rather not go back to that she says for now the periods are manageable and she will see what happens she knows that postmenopausally everything tends to shrink . She has not heard anything about the pelvic floor referral so she is going to stop down on her way out of the building to check on what is going on with that. Coding Level of Care Code Est Pt Level 3 (73458) Diagnoses Bulky or enlarged uterus N85.2 H/O dysmenorrhea Z87.42 Stress incontinence N39.3
[2023-03-17 09:13] VITALS: BP 118/66; BMI 22.6
== END 2023-03-17 09:33 | disposition home or self-care (01) ==
PROVIDERS: PCP Internal Medicine; Visit Provider Advanced Practice Midwife
DX: N85.2 Hypertrophy of uterus (principal); Z87.42 Personal history of other diseases of the female genital tract; N39.3 Stress incontinence (female) (male)
CPT/HCPCS: 99213

== ENCOUNTER → 2023-03-17 09:01 | Outpatient (BNVA) | payer OTHER, SELFPAY | PROVIDERS: PCP Internal Medicine; Visit Provider Advanced Practice Midwife ==

== ENCOUNTER 2023-05-25 11:20 | Outpatient (REF) | payer OTHER, SELFPAY | END 2023-05-25 11:21 | disposition home or self-care (01) | LOC: HO.MAMMO 11:20 | PROVIDERS: PCP Internal Medicine; Visit Provider Internal Medicine | DX: Z12.31 Encounter for screening mammogram for malignant neoplasm of breast (principal) | CPT/HCPCS: 77063; 77067 ==

== ENCOUNTER → 2023-05-25 11:30 | Outpatient (BNV) | payer OTHER, SELFPAY | PROVIDERS: PCP Internal Medicine; Visit Provider Radiology Diagnostic Radiology | DX: Z12.31 Encounter for screening mammogram for malignant neoplasm of breast (principal) | CPT/HCPCS: 77063; 77067 ==

== ENCOUNTER 2023-06-05 14:53 | Outpatient (AMB) | payer OTHER, SELFPAY ==
--- NOTE | 2023-06-05 14:54 | MHC.PC.OV ---
Vital Signs 06/05/23 14:57 Height 5 ft 2 in Weight 127 lb 3 oz BMI 23.3 BP 118/58 L Blood Pressure Location Lt brachial Position Sitting Pulse 72 Pulse Source Pulse Oximeter Pulse Oximetry (%) 99 Oxygen Delivery Method Room Air Intake Visit Reasons: Annual PE Allergies prednisone Adverse Reaction (Mild, Verified 06/05/23 14:56) rectal bleeding cats/dogs Allergy (Unknown, Uncoded 03/17/23 09:14) itch Numerous food and environmenta Allergy (Unknown, Uncoded 03/17/23 09:14) hive Medication List - Last Reconciled 06/05/23 by Rodríguez Bonds MD cetirizine 10 mg PO DAILY PRN cholecalciferol (vitamin D3) 50 mcg PO DAILY famotidine 20 mg PO BID PRN fluticasone propionate 50 mcg/actuation (Flonase Allergy Relief) 1 spray intranasal DAILY hydrocortisone 1% (Anti-Itch (hydrocortisone)) 1 appl topical BID-QID PRN ketotifen fumarate 0.025%(0.035%) ([place]) 1 drp ophthalmic (eye) BID lidocaine HCl-hydrocortison ac 3-0.5 % 1 appl CA BID 10 days pregabalin 75 mg PO BID 90 days Tobacco use date assessed: 06/05/23 Dental Screening Dental Screen Date: 06/05/23 Did you have a dental visit in the last 12 months?: Yes Did you have a dental problem in the last 6 months where you did not have access to dental care?: No Was dental information given to patient?: Patient has dentist HPI Annual PE HPI Details Physical exam appointment Labs were done February of last year reviewed with the patient Medication list reviewed, patient is on Lyrica for fibromyalgia, need three-month follow-up appointment Pap smear and breast exam is through [facility] Medical History Ectopic Multiple allergies Herniated lumbar disc without myelopathy GERD (gastroesophageal reflux disease) Fibromyalgia Surgical History H/O tubal ligation Family History Maternal Aunt Breast cancer Mother Fibromyalgia Paternal Grandfather Colon cancer Social History Housing: House Patient Tobacco Use Status: Never used Tobacco e-Cigarette/Vaping Use: Never Used Second Hand Smoke Exposure: No service: No Current occupational status: disabled Cognitive needs: No Hearing needs: No Vision needs: No Female Reproductive History Menstrual Age of Menarche: 13 Questionnaire Thrive Questionnaire Date Thrive assessed: 12/06/21 AUDIT C Alcohol Use Questionnaire (AUDIT-C) 1. How often do you have a drink containing alcohol?: Never 3. How often do you have six or more drinks on one occasion?: Never Total Score: 0 Score Reviewed/Action Taken: Yes BEATRIZ-7 AMB Questionnaire BEATRIZ-7 Date BEATRIZ - 7 assessed: 02/24/23 Source: Developed by Drs. Pino Lynn, aRdha Uribe, Randy Agosto and colleagues, with an educational martita from [employer] Review of Systems Const Denies chills, Denies fever(s) and Denies headache(s) Eyes Denies blurry vision ENT Denies headache(s), Denies nasal discharge, Denies nasal obstruction, Denies odynophagia and Denies sinus pain Card Denies chest pain at rest and Denies chest pain with activity Resp Denies cough and Denies hemoptysis GI Denies diarrhea, Denies odynophagia, Denies vomiting and Denies hematemesis Reports as per HPI Musc Denies abnormal gait Skin/Breast Reports as per HPI Neuro Denies Neuro-related abnormal movements, Denies Abnormal speech present, Denies abnormal gait, Denies headache(s) and Denies Sensory deficit (Neuro) Psych Denies mood swings and Denies paranoia Endo Reports as per HPI Kiarn/Lymph Reports as per HPI Aller/Immun Reports as per HPI Physical exam (Primary Care) Vital Signs: Last Vital Signs Pulse 72 06/05/23 14:57 BP 118/58 L 06/05/23 14:57 Pulse Ox 99 06/05/23 14:57 Oxygen Delivery Method Room Air 06/05/23 14:57 BMI result Body Mass Index 23.3 Tobacco/Smoking Status: Tobacco use Status Tobacco use date assessed 06/05/23 06/05/23 15:00 Patient Tobacco Use Status Never used Tobacco 06/05/23 15:00 e-Cigarette/Vaping Use Never Used 06/05/23 15:00 Thrive Assessment: Date of Thrive Assessment Date Thrive assessed 12/06/21 06/05/23 15:00 Const General: cooperative, comfortable and no acute distress Orientation/consciousness: patient oriented x3 HENMT Head: Yes normocephalic and Yes atraumatic Eyes General: appearance normal, both eyes and all related structures Pupils: Equal, round and reactive pupils present EOM: EOMs intact bilaterally Neck Neck: Yes supple and No lymphadenopathy Thyroid: Thyroid normal Lymphatic: no lymphadenopathy noted Resp Effort & Inspection: normal respiratory effort and able to speak in complete sentences Auscultation: clear to auscultation bilaterally Cardio Heart sounds: S1 normal heart sound present and S2 normal heart sound present GI Palpation (GI): Soft to palpation and nontender Auscultation: normal bowel sounds General: Yes no CVA tenderness Back/Spine/Pelvis Back: no CVA tenderness Skin General skin exam: elasticity normal and turgor normal Neuro General: patient oriented x3 and gait normal Cranial nerves: Yes Equal, round and reactive pupils present Speech: No Abnormal speech present Sensory Exam: No Sensory deficit (Neuro) Coordination: tandem gait normal and Romberg test negative Extrem General: Yes normal exam except as noted and No edema Assessment and Plan Assessment & Plan (1) Encounter for general adult medical examination with abnormal findings: Code(s): Z00.01 - Encounter for general adult medical examination with abnormal findings (2) Fibromyalgia: Code(s): M79.7 - Fibromyalgia (3) Herniated nucleus pulposus, L4-5 left: Code(s): M51.26 - Other intervertebral disc displacement, lumbar region (4) Acid reflux: Code(s): K21.9 - Gastro-esophageal reflux disease without esophagitis Qualifiers: Esophagitis presence: without esophagitis Qualified Code(s): K21.9 - Gastro-esophageal reflux disease without esophagitis (5) Stress incontinence in female: Code(s): N39.3 - Stress incontinence (female) (male) (6) Radiculitis of right cervical region: Code(s): M54.12 - Radiculopathy, cervical region (7) Arthrosis: Code(s): M19.90 - Unspecified osteoarthritis, unspecified site (8) Hemorrhoids: Code(s): K64.9 - Unspecified hemorrhoids Qualifiers: Hemorrhoid type: other Qualified Code(s): K64.8 - Other hemorrhoids (9) Skin pigmentation disorder: Code(s): L81.9 - Disorder of pigmentation, unspecified Plan Physical exam appointment , patient have history of allergies, vitamin-D deficiency, allergic rhinitis, chronic cervicalgia and lower back pain, dyspepsia Labs were done February of last year reviewed with the patient Medication list reviewed, patient is on Lyrica for fibromyalgia, need three-month follow-up appointment Pap smear and breast exam is through OBG[facility] Medications: Refilled pregabalin 75 mg PO BID 90 days 180 caps 0RF Coding Level of Care Code Est Pt Prev Care 40-64y(10583) Diagnoses Encounter for general adult medical examination with abnormal findings Z00.01 Fibromyalgia M79.7 Herniated nucleus pulposus, L4-5 left M51.26 Gastroesophageal reflux disease without esophagitis K21.9 Esophagitis presence: without esophagitis Stress incontinence in female N39.3 Radiculitis of right cervical region M54.12 Arthrosis M19.90 Other hemorrhoids K64.8 Hemorrhoid type: other Skin pigmentation disorder L81.9
[2023-06-05 14:57] VITALS: BP 118/58; PULSE 72; O2SAT 99; BMI 23.3
== END 2023-06-05 15:23 | disposition home or self-care (01) ==
PROVIDERS: PCP Internal Medicine; Visit Provider Internal Medicine
DX: Z00.00 Encounter for general adult medical examination without abnormal findings (principal); M79.7 Fibromyalgia; M51.26 Other intervertebral disc displacement, lumbar region; K21.9 Gastro-esophageal reflux disease without esophagitis; N39.3 Stress incontinence (female) (male); M54.12 Radiculopathy, cervical region; M19.90 Unspecified osteoarthritis, unspecified site; K64.8 Other hemorrhoids; L81.9 Disorder of pigmentation, unspecified
CPT/HCPCS: 99396

== ENCOUNTER 2023-09-11 09:00 | Outpatient (AMB) | payer OTHER, SELFPAY ==
--- NOTE | 2023-09-11 09:01 | MHC.PC.OV ---
Vital Signs 09/11/23 09:03 Height 5 ft 2 in Weight 121 lb BMI 22.1 BP 110/76 Blood Pressure Location Lt brachial Position Sitting Pulse 62 Pulse Source Pulse Oximeter Pulse Oximetry (%) 97 Oxygen Delivery Method Room Air Intake Visit Reasons: 3 month follow up Allergies prednisone Adverse Reaction (Mild, Verified 09/11/23 09:03) rectal bleeding cats/dogs Allergy (Unknown, Uncoded 09/11/23 09:03) itch Numerous food and environmenta Allergy (Unknown, Uncoded 09/11/23 09:03) hive Medication List - Last Reconciled 09/11/23 by Rodríguez Bonds MD azelastine intranasal cetirizine 10 mg PO DAILY PRN cholecalciferol (vitamin D3) 50 mcg PO DAILY famotidine 20 mg PO BID PRN fluticasone propionate 50 mcg/actuation (Flonase Allergy Relief) 1 spray intranasal DAILY hydrocortisone 1% (Anti-Itch (hydrocortisone)) 1 appl topical BID-QID PRN ketotifen fumarate 0.025%(0.035%) ([place]) 1 drp ophthalmic (eye) BID lidocaine HCl-hydrocortison ac 3-0.5 % 1 appl MS BID 10 days pregabalin 75 mg PO BID 90 days Tobacco use date assessed: 06/05/23 Dental Screening Dental Screen Date: 06/05/23 HPI 3 month follow up HPI Details Patient is a 48-year-old female with a history of lower back pain, stress incontinence, arthritis multiple joint, allergies, Vitamin-D deficiency, chronic GERD, allergic rhinitis, came in for her three-month follow-up appointment for medication refill Patient is seeing Dr. Hendrix at [facility] for her back pain She recently had cortisone injection lumbar spine that resolved the pain going down her left leg Patient says that now she has a pain on the right leg, she is waiting for updated MRI as her last MRI was in 2018. Patient also has stress incontinence Last Thursday she had an accident in convenient store Patient says that she started laughing and she could not hold her urine She does have uterine fibroids and is seeing improvement specialist [facility] Patient says that they ordered pelvic floor exercises she is waiting for physical therapy appointment I have placed a referral to Urogynecology for urine incontinence. Lab order placed to be done before next visit in November Bharath prescription sent [facility] Medical History Ectopic Multiple allergies Herniated lumbar disc without myelopathy GERD (gastroesophageal reflux disease) Fibromyalgia Surgical History H/O tubal ligation Family History Maternal Aunt Breast cancer Mother Fibromyalgia Paternal Grandfather Colon cancer Social History Housing: House Patient Tobacco Use Status: Never used Tobacco e-Cigarette/Vaping Use: Never Used Second Hand Smoke Exposure: No service: No Current occupational status: disabled Cognitive needs: No Hearing needs: No Vision needs: No Female Reproductive History Menstrual Age of Menarche: 13 Questionnaire PHQ-9 Over the last 2 weeks, how often have you been bothered by any of the following problems? 1. Little interest or pleasure in doing things: not at all 2. Feeling down, depressed, or hopeless: not at all 3. Trouble falling or staying asleep, or sleeping too much: not at all 4. Feeling tired or having little energy: not at all 5. Poor appetite or overeating: not at all 6. Feeling bad about yourself - or that you are a failure or have let yourself or your family down: not at all 7. Trouble concentrating on things, such as reading the newspaper or watching television: not at all 8. Moving or speaking so slowly that other people could have noticed. Or the opposite - being so fidgety or restless that you have been moving around a lot more than usual: not at all 9. Thoughts that you would be better off or of hurting yourself in some way: not at all Total score: 0 Depression Screening Interpretation: Negative Depression Screening Done: Yes 22562 - PHQ-9 Billing: Yes Source: Developed by Drs. Pino Lynn, Radha Uribe, Randy Agosto and colleagues, with an educational martita from [employer]. Thrive Questionnaire Date Thrive assessed: 09/11/23 I am a: Patient What is your living situation today?: I have a steady place to live Within the past 12 months, did the food you bought not last and you didn't have the money to get more?: Never true Within the past 12 months, did you worry whether your food would run out before you got money to buy more?: Never true Do you have trouble paying for medicines?: No Do you have trouble getting transportation to medical appointments?: No Do you have trouble paying your heating and electricity bill?: No Do you have trouble taking care of your child, family member or friend?: No Do you have trouble with day-to-day activities such as bathing, preparing meals, shopping, managing finances, etc.?: No Are you currently unemployed and looking for a job?: No Are you interested in more education?: No Please select the resources that you would like help with: None Currently or been in a relationship where the following occur: no concerns reported and I choose not to answer this question THRIVE Score: 0 BEATRIZ-7 AMB Questionnaire BEATRIZ-7 Date BEATRIZ - 7 assessed: 09/11/23 Feeling nervous, anxious, or on edge: 0 = Not at all Not being able to stop or control worryin = Not at all Worrying too much about different things: 0 = Not at all Trouble relaxin = Not at all Being so restless that it is hard to sit still: 0 = Not at all Becoming easily annoyed or irritable: 0 = Not at all Feeling afraid as if something awful might happen: 0 = Not at all Total BEATRIZ-7 score (0-4 normal; 5-9 mild; 10-14 moderate; 15-21 severe): 0 Source: Developed by Drs. Pino Lynn, Radha Uribe, Randy Agosto and colleagues, with an educational martita from [employer]. BEATRIZ-7 Assessment Billing BEATRIZ-7 Assessment Tool: BEATRIZ-7 Assessment 55704 Review of Systems Const Denies chills and Denies fever(s) ENT Denies epistaxis and Denies nasal discharge Card Denies chest pain Resp Denies chest congestion, Denies cough and Denies hemoptysis GI Denies diarrhea and Denies nausea Skin/Breast Denies rash Neuro Reports no additional complaints Psych Reports no additional complaints Endo Reports no additional complaints Physical exam (Primary Care) Vital Signs: Last Vital Signs Pulse 62 09/11/23 09:03 BP 110/76 09/11/23 09:03 Pulse Ox 97 09/11/23 09:03 Oxygen Delivery Method Room Air 09/11/23 09:03 BMI result Body Mass Index 22.1 Tobacco/Smoking Status: Tobacco use Status Tobacco use date assessed 06/05/23 09/11/23 09:02 Patient Tobacco Use Status Never used Tobacco 09/11/23 09:02 e-Cigarette/Vaping Use Never Used 09/11/23 09:02 PHQ-9: PHQ-9 Score PHQ-9: Total score 0 09/11/23 09:24 Depression Screening Interpretation: Negative Thrive Assessment: Date of Thrive Assessment Date Thrive assessed 09/11/23 09/11/23 09:07 Currently or been in a relationship where the following occur: no concerns reported and I choose not to answer this question Const General: cooperative, comfortable and no acute distress Orientation/consciousness: patient oriented x3 HENMT Head: Yes normocephalic Eyes General: appearance normal, both eyes and all related structures Neck Neck: Yes supple Resp Effort & Inspection: normal respiratory effort, no cough and no stridor Cardio Rhythm: regular rhythm Heart sounds: S1 normal heart sound present and S2 normal heart sound present Skin General skin exam: turgor normal Neuro General: patient oriented x3, tone normal and moves all extremities Extrem Right lower extremity: no edema Left lower extremity: no edema Assessment and Plan Assessment & Plan (1) Fibromyalgia: Code(s): M79.7 - Fibromyalgia (2) Herniated nucleus pulposus, L4-5 left: Code(s): M51.26 - Other intervertebral disc displacement, lumbar region (3) Acid reflux: Code(s): K21.9 - Gastro-esophageal reflux disease without esophagitis Qualifiers: Esophagitis presence: without esophagitis Qualified Code(s): K21.9 - Gastro-esophageal reflux disease without esophagitis (4) Stress incontinence in female: Code(s): N39.3 - Stress incontinence (female) (male) (5) Arthrosis: Code(s): M19.90 - Unspecified osteoarthritis, unspecified site (6) Hemorrhoids: Code(s): K64.9 - Unspecified hemorrhoids Qualifiers: Hemorrhoid type: other Qualified Code(s): K64.8 - Other hemorrhoids (7) Uterine fibroid: Code(s): D25.9 - Leiomyoma of uterus, unspecified Qualifiers: Uterine leiomyoma location: unspecified location Qualified Code(s): D25.9 - Leiomyoma of uterus, unspecified (8) Allergic rhinitis: Code(s): J30.9 - Allergic rhinitis, unspecified Qualifiers: Allergic rhinitis seasonality: unspecified Allergic rhinitis trigger: other Qualified Code(s): J30.89 - Other allergic rhinitis Plan Patient is a 48-year-old female with a history of lower back pain, stress incontinence, arthritis multiple joint, allergies, hemorrhoids Vitamin-D deficiency, chronic GERD, allergic rhinitis, came in for her three-month follow-up appointment for medication refill Patient is seeing Dr. Hendrix at [facility] for her back pain She recently had cortisone injection lumbar spine that resolved the pain going down her left leg Patient says that now she has a pain on the right leg, she is waiting for updated MRI as her last MRI was in 2018. Patient also has stress incontinence Last Thursday she had an accident in convenient store Patient says that she started laughing and she could not hold her urine She does have uterine fibroids and is seeing improvement specialist [facility] Patient says that they ordered pelvic floor exercises she is waiting for physical therapy appointment I have placed a referral to Urogynecology for urine incontinence. Lab order placed to be done before next visit in November Bharath prescription sent Orders: Orders Comprehensive Met. Panel Today K21.9 - Gastro-esophageal reflux disease without esophagitis, K64.8 - Other hemorrhoids, M19.90 - Unspecified osteoarthritis, unspecified site, M51.26 - Other intervertebral disc displacement, lumbar region, M79.7 - Fibromyalgia, N39.3 - Stress incontinence (female) (male) Complete Blood Count Auto Diff Today K21.9 - Gastro-esophageal reflux disease without esophagitis, K64.8 - Other hemorrhoids, M19.90 - Unspecified osteoarthritis, unspecified site, M51.26 - Other intervertebral disc displacement, lumbar region, M79.7 - Fibromyalgia, N39.3 - Stress incontinence (female) (male) TSH reflex Free T4 Today K21.9 - Gastro-esophageal reflux disease without esophagitis, K64.8 - Other hemorrhoids, M19.90 - Unspecified osteoarthritis, unspecified site, M51.26 - Other intervertebral disc displacement, lumbar region, M79.7 - Fibromyalgia, N39.3 - Stress incontinence (female) (male) Vitamin D 25-OH (D2 and D3) Today K21.9 - Gastro-esophageal reflux disease without esophagitis, K64.8 - Other hemorrhoids, M19.90 - Unspecified osteoarthritis, unspecified site, M51.26 - Other intervertebral disc displacement, lumbar region, M79.7 - Fibromyalgia, N39.3 - Stress incontinence (female) (male) LDL Cholesterol Direct Today K21.9 - Gastro-esophageal reflux disease without esophagitis, K64.8 - Other hemorrhoids, M19.90 - Unspecified osteoarthritis, unspecified site, M51.26 - Other intervertebral disc displacement, lumbar region, M79.7 - Fibromyalgia, N39.3 - Stress incontinence (female) (male) Referrals Urogynecology Referral N39.3 - Stress incontinence (female) (male) Medications: Refilled pregabalin 75 mg PO BID 180 caps 0RF 90 days Coding Level of Care Code Est Pt Level 4 (20237) Diagnoses Fibromyalgia M79.7 Herniated nucleus pulposus, L4-5 left M51.26 Gastroesophageal reflux disease without esophagitis K21.9 Esophagitis presence: without esophagitis Stress incontinence in female N39.3 Arthrosis M19.90 Other hemorrhoids K64.8 Hemorrhoid type: other Uterine leiomyoma, unspecified location D25.9 Uterine leiomyoma location: unspecified location Allergic rhinitis due to other allergic trigger, unspecified seasonality J30.89 Allergic rhinitis seasonality: unspecified Allergic rhinitis trigger: other Additional Codes BEATRIZ-7 Assessment Billing - BEATRIZ-7 Assessment Tool: BEATRIZ-7 Assessment 20158 ([id number])
[2023-09-11 09:03] VITALS: BP 110/76; PULSE 62; O2SAT 97; BMI 22.1
== END 2023-09-11 09:21 | disposition home or self-care (01) ==
PROVIDERS: PCP Internal Medicine; Visit Provider Internal Medicine
DX: M79.7 Fibromyalgia (principal); M51.26 Other intervertebral disc displacement, lumbar region; K21.9 Gastro-esophageal reflux disease without esophagitis; N39.3 Stress incontinence (female) (male); M19.90 Unspecified osteoarthritis, unspecified site; K64.8 Other hemorrhoids; D25.9 Leiomyoma of uterus, unspecified; J30.89 Other allergic rhinitis
CPT/HCPCS: 99214

== ENCOUNTER 2023-09-23 09:35 | Outpatient (REF) | payer OTHER, SELFPAY ==
--- NOTE | ~2023-09-23 | XR_ITS ---
EXAMINATION: XR LUMBOSACRAL SPINE WITH OBLIQUES CLINICAL INFORMATION: Low back pain. COMPARISON: Lumbar spine MRI 08/30/2015. Lumbar spine radiographs 08/29/2017. TECHNIQUE: AP, both oblique, and lateral views of the lumbar spine. Lateral view of the lumbosacral junction. FINDINGS: The vertebral bodies and posterior elements are normal. Degenerative changes are seen at the facet joints involving L5-S1 bilaterally. The disc spaces are preserved with the exception of some minimal narrowing at L4-L5 and L5-S1. The vertebral alignment is normal. The paraspinal soft tissues are normal. XR/XR lumbar spine 4V min IMPRESSION: Mild degenerative changes in the lower lumbar spine.
== END 2023-09-23 09:36 | disposition home or self-care (01) ==
LOC: HO.XRAY 09:35
PROVIDERS: PCP Internal Medicine; Visit Provider Nurse Practitioner Women's Health
DX: M54.51 Vertebrogenic low back pain (principal); M54.16 Radiculopathy, lumbar region; M51.36 Other intervertebral disc degeneration, lumbar region
CPT/HCPCS: 72110

== ENCOUNTER 2023-11-05 10:00 | Outpatient (RCR) | payer OTHER, SELFPAY | END 2023-11-05 10:57 | disposition home or self-care (01) | LOC: HO.PT 10:00 | PROVIDERS: PCP Internal Medicine; Visit Provider Nurse Practitioner Women's Health | DX: M54.17 Radiculopathy, lumbosacral region (principal) | CPT/HCPCS: 97110; 97140; 97162; 97535 ==

== ENCOUNTER 2023-11-11 07:18 | Outpatient (REF) | payer OTHER, SELFPAY ==
--- NOTE | ~2023-11-11 | MR_ITS ---
EXAMINATION: MR LUMBAR SPINE WITHOUT CONTRAST CLINICAL INFORMATION: Radiculopathy, right-sided COMPARISON: None available. TECHNIQUE: MRI of the lumbar spine was obtained using routine sequences without contrast. FINDINGS: Normal alignment. No acute bone marrow abnormality. The vertebral body heights are preserved. Multilevel disc desiccation without significant disc height loss. The visualized spinal cord is normal in caliber. No abnormal cord signal. The conus medullaris terminates at L1. T12-L1: No significant spinal canal or neural foraminal narrowing. L1-2: No significant spinal canal or neural foraminal narrowing. L2-3: No significant spinal canal or neural foraminal narrowing. L3-4: No significant spinal canal or neural foraminal narrowing. L4-5: Shallow central disc protrusion with superimposed annular fissure. Mild right greater than left neural foraminal narrowing with a disc abutting the right exiting L4 nerve roots. L5-S1: No significant spinal canal or neural foraminal narrowing. The paravertebral soft tissues are unremarkable. Probable partially imaged fibroid uterus. MR/MR lumbar spine wo con IMPRESSION: 1. At L4-L5, there is a shallow central disc protrusion with annular fissure and mild right greater than left neural foraminal narrowing with a disc abutting the right exiting L4 nerve roots. 2. Probable partially imaged fibroid uterus. Electronically signed by: Pascual Morton MD 12/10/2023 11:02 AM EDT
== END 2023-11-11 07:19 | disposition home or self-care (01) ==
LOC: HO.MRI 07:18
PROVIDERS: PCP Internal Medicine; Visit Provider Nurse Practitioner Women's Health
DX: M54.16 Radiculopathy, lumbar region (principal)
CPT/HCPCS: 72148

== ENCOUNTER 2023-12-04 09:33 | Outpatient (AMB) | payer OTHER, SELFPAY ==
[2023-12-04 09:34] VITALS: BP 110/72; PULSE 59; O2SAT 99; BMI 21.6
--- NOTE | 2023-12-04 09:34 | MHC.PC.OV ---
Vital Signs 12/04/23 09:34 Height 5 ft 2 in Weight 118 lb 6 oz BMI 21.6 BP 110/72 Blood Pressure Location Lt brachial Position Sitting Pulse 59 Pulse Source Pulse Oximeter Pulse Oximetry (%) 99 Oxygen Delivery Method Room Air Intake Visit Reasons: 6 month follow up Allergies prednisone Adverse Reaction (Mild, Verified 12/04/23 09:35) rectal bleeding cats/dogs Allergy (Unknown, Uncoded 09/11/23 09:03) itch Numerous food and environmenta Allergy (Unknown, Uncoded 09/11/23 09:03) hive Medication List - Last Reconciled 12/04/23 by Rodríguez Bonds MD azelastine intranasal cetirizine 10 mg PO DAILY PRN cholecalciferol (vitamin D3) 50 mcg PO DAILY famotidine 20 mg PO BID PRN fluticasone propionate 50 mcg/actuation (Flonase Allergy Relief) 1 spray intranasal DAILY hydrocortisone 1% (Anti-Itch (hydrocortisone)) 1 appl topical BID-QID PRN ketotifen fumarate 0.025%(0.035%) ([place]) 1 drp ophthalmic (eye) BID lidocaine HCl-hydrocortison ac 3-0.5 % 1 appl [place] BID 10 days pregabalin 75 mg PO BID 90 days Tobacco use date assessed: 12/04/23 Dental Screening Dental Screen Date: 12/04/23 Did you have a dental visit in the last 12 months?: Yes Did you have a dental problem in the last 6 months where you did not have access to dental care?: No Was dental information given to patient?: Patient has dentist HPI 6 month follow up HPI Details Patient is a 48-year-old female with a history of lower back pain, stress incontinence, arthritis multiple joint, allergies, Vitamin-D deficiency, chronic GERD, allergic rhinitis, came in for her three-month follow-up appointment for medication refill Patient have itchy eyes, she was seeing an master in chancery before was prescribing eyedrops for that reason But she switched the providers and they no longer cover that, she has an eye doctor but has not seen them in a while I have sent the eyedrops, patient was instructed to get it from her eye doctor next time. Patient is seeing Dr. Hendrix at [facility] for her back pain Complaining of bilateral wrist pain for the past 1 month when she hyperextends the wrist I have ordered physical therapy for the patient and also advised not to sit with pressure on her wrists Patient also has stress incontinence She was evaluated by Urogynecology and 2 procedures were offered to patient One was inter vaginal ring placement in other is surgery Patient opted out of both of these procedure and is using diapers She is already doing pelvic floor exercises at home Lyrica prescription sent [facility] Medical History Ectopic Multiple allergies Herniated lumbar disc without myelopathy GERD (gastroesophageal reflux disease) Fibromyalgia Surgical History H/O tubal ligation Family History Maternal Aunt Breast cancer Mother Fibromyalgia Paternal Grandfather Colon cancer Social History Housing: House Patient Tobacco Use Status: Never used Tobacco e-Cigarette/Vaping Use: Never Used Second Hand Smoke Exposure: No service: No Current occupational status: disabled Cognitive needs: No Hearing needs: No Vision needs: No Female Reproductive History Menstrual Age of Menarche: 13 Questionnaire PHQ-9 Over the last 2 weeks, how often have you been bothered by any of the following problems? 1. Little interest or pleasure in doing things: not at all 2. Feeling down, depressed, or hopeless: not at all 3. Trouble falling or staying asleep, or sleeping too much: not at all 4. Feeling tired or having little energy: not at all 5. Poor appetite or overeating: not at all 6. Feeling bad about yourself - or that you are a failure or have let yourself or your family down: not at all 7. Trouble concentrating on things, such as reading the newspaper or watching television: not at all 8. Moving or speaking so slowly that other people could have noticed. Or the opposite - being so fidgety or restless that you have been moving around a lot more than usual: not at all 9. Thoughts that you would be better off or of hurting yourself in some way: not at all Total score: 0 Depression Screening Interpretation: Negative Depression Screening Done: Yes 53592 - PHQ-9 Billing: Yes Source: Developed by Drs. Pino Lynn, Radha Uribe, Randy Agosto and colleagues, with an educational martita from [employer]. Thrive Questionnaire Date Thrive assessed: 12/04/23 I am a: Patient What is your living situation today?: I have a steady place to live Within the past 12 months, did the food you bought not last and you didn't have the money to get more?: Never true Within the past 12 months, did you worry whether your food would run out before you got money to buy more?: Never true Do you have trouble paying for medicines?: No Do you have trouble getting transportation to medical appointments?: Yes Do you have trouble paying your heating and electricity bill?: No Do you have trouble taking care of your child, family member or friend?: No Do you have trouble with day-to-day activities such as bathing, preparing meals, shopping, managing finances, etc.?: No Are you currently unemployed and looking for a job?: No Are you interested in more education?: No Please select the resources that you would like help with: None Currently or been in a relationship where the following occur: No concerns reported THRIVE Score: 1 AUDIT C Alcohol Use Questionnaire (AUDIT-C) 1. How often do you have a drink containing alcohol?: Never 3. How often do you have six or more drinks on one occasion?: Never Total Score: 0 Score Reviewed/Action Taken: Yes BEATRIZ-7 AMB Questionnaire BEATRIZ-7 Date BEATRIZ - 7 assessed: 12/04/23 Feeling nervous, anxious, or on edge: 0 = Not at all Not being able to stop or control worryin = Not at all Worrying too much about different things: 0 = Not at all Trouble relaxin = Not at all Being so restless that it is hard to sit still: 0 = Not at all Becoming easily annoyed or irritable: 0 = Not at all Feeling afraid as if something awful might happen: 0 = Not at all Total BEATRIZ-7 score (0-4 normal; 5-9 mild; 10-14 moderate; 15-21 severe): 0 Source: Developed by Drs. Pino Lynn, Randy Paul and colleagues, with an educational martita from [employer]. BEATRIZ-7 Assessment Billing BEATRIZ-7 Assessment Tool: BEATRIZ-7 Assessment 44720 Review of Systems Const Denies chills and Denies fever(s) ENT Denies epistaxis and Denies nasal discharge Card Denies chest pain Resp Denies chest congestion, Denies cough and Denies hemoptysis GI Denies diarrhea and Denies nausea Skin/Breast Denies rash Neuro Reports no additional complaints Psych Reports no additional complaints Endo Reports no additional complaints Physical exam (Primary Care) Vital Signs: Last Vital Signs Pulse 59 12/04/23 09:34 BP 110/72 12/04/23 09:34 Pulse Ox 99 12/04/23 09:34 Oxygen Delivery Method Room Air 12/04/23 09:34 BMI result Body Mass Index 21.6 Tobacco/Smoking Status: Tobacco use Status Tobacco use date assessed 12/04/23 12/04/23 09:38 Patient Tobacco Use Status Never used Tobacco 12/04/23 09:38 e-Cigarette/Vaping Use Never Used 12/04/23 09:38 PHQ-9: PHQ-9 Score PHQ-9: Total score 0 12/04/23 09:42 Depression Screening Interpretation: Negative Thrive Assessment: Date of Thrive Assessment Date Thrive assessed 12/04/23 12/04/23 09:38 Currently or been in a relationship where the following occur: No concerns reported Const General: cooperative, comfortable and no acute distress Orientation/consciousness: patient oriented x3 HENMT Head: Yes normocephalic Eyes General: appearance normal, both eyes and all related structures Neck Neck: Yes supple Resp Effort & Inspection: normal respiratory effort, no cough and no stridor Cardio Rhythm: regular rhythm Heart sounds: S1 normal heart sound present and S2 normal heart sound present Skin General skin exam: turgor normal Neuro General: patient oriented x3, tone normal and moves all extremities Extrem Right lower extremity: no edema Left lower extremity: no edema Assessment and Plan Assessment & Plan (1) Bilateral wrist pain: Code(s): M25.531 - Pain in right wrist; M25.532 - Pain in left wrist (2) Fibromyalgia: Code(s): M79.7 - Fibromyalgia (3) Herniated nucleus pulposus, L4-5 left: Code(s): M51.26 - Other intervertebral disc displacement, lumbar region (4) Acid reflux: Code(s): K21.9 - Gastro-esophageal reflux disease without esophagitis Qualifiers: Esophagitis presence: without esophagitis Qualified Code(s): K21.9 - Gastro-esophageal reflux disease without esophagitis (5) Stress incontinence in female: Code(s): N39.3 - Stress incontinence (female) (male) (6) Radiculitis of right cervical region: Code(s): M54.12 - Radiculopathy, cervical region (7) Vitamin D deficiency: Code(s): E55.9 - Vitamin D deficiency, unspecified (8) Allergic rhinitis: Code(s): J30.9 - Allergic rhinitis, unspecified Qualifiers: Allergic rhinitis seasonality: unspecified Allergic rhinitis trigger: other Qualified Code(s): J30.89 - Other allergic rhinitis Plan Patient is a 48-year-old female with a history of lower back pain, stress incontinence, arthritis multiple joint, allergies, Vitamin-D deficiency, chronic GERD, allergic rhinitis, came in for her three-month follow-up appointment for medication refill Patient have itchy eyes, she was seeing an master in chancery before was prescribing eyedrops for that reason But she switched the providers and they no longer cover that, she has an eye doctor but has not seen them in a while I have sent the eyedrops, patient was instructed to get it from her eye doctor next time. Patient is seeing Dr. Hendrix at [facility] for her back pain Complaining of bilateral wrist pain for the past 1 month when she hyperextends the wrist I have ordered physical therapy for the patient and also advised not to sit with pressure on her wrists Patient also has stress incontinence She was evaluated by Urogynecology and 2 procedures were offered to patient One was inter vaginal ring placement in other is surgery Patient opted out of both of these procedure and is using diapers She is already doing pelvic floor exercises at home Lyrica prescription sent Orders: Orders TSH reflex Free T4 Today E55.9 - Vitamin D deficiency, unspecified, J30.89 - Other allergic rhinitis, K21.9 - Gastro-esophageal reflux disease without esophagitis, M51.26 - Other intervertebral disc displacement, lumbar region, M54.12 - Radiculopathy, cervical region, M79.7 - Fibromyalgia, N39.3 - Stress incontinence (female) (male) Complete Blood Count Auto Diff Today E55.9 - Vitamin D deficiency, unspecified, J30.89 - Other allergic rhinitis, K21.9 - Gastro-esophageal reflux disease without esophagitis, M51.26 - Other intervertebral disc displacement, lumbar region, M54.12 - Radiculopathy, cervical region, M79.7 - Fibromyalgia, N39.3 - Stress incontinence (female) (male) Comprehensive [place]. Panel Fast Today E55.9 - Vitamin D deficiency, unspecified, J30.89 - Other allergic rhinitis, K21.9 - Gastro-esophageal reflux disease without esophagitis, M51.26 - Other intervertebral disc displacement, lumbar region, M54.12 - Radiculopathy, cervical region, M79.7 - Fibromyalgia, N39.3 - Stress incontinence (female) (male) Lipid Panel Today E55.9 - Vitamin D deficiency, unspecified, J30.89 - Other allergic rhinitis, K21.9 - Gastro-esophageal reflux disease without esophagitis, M51.26 - Other intervertebral disc displacement, lumbar region, M54.12 - Radiculopathy, cervical region, M79.7 - Fibromyalgia, N39.3 - Stress incontinence (female) (male) Vitamin D 25-OH (D2 and D3) Today E55.9 - Vitamin D deficiency, unspecified, J30.89 - Other allergic rhinitis, K21.9 - Gastro-esophageal reflux disease without esophagitis, M51.26 - Other intervertebral disc displacement, lumbar region, M54.12 - Radiculopathy, cervical region, M79.7 - Fibromyalgia, N39.3 - Stress incontinence (female) (male) PT Evaluation and Treatment Today M25.531 - Pain in right wrist, M25.532 - Pain in left wrist Medications: New hydrocortisone 1% (Anti-Itch (hydrocortisone)) 1 appl topical BID-QID PRN 28.4 grams 2RF rash ketotifen fumarate 0.025%(0.035%) ([place]) administer at least 8 hours apart 1 drp ophthalmic (eye) BID 5 mL 0RF Refilled pregabalin 75 mg PO BID 180 caps 0RF 90 days Coding Level of Care Code Est Pt Level 4 (10031) Diagnoses Bilateral wrist pain M25.531; M25.532 Fibromyalgia M79.7 Herniated nucleus pulposus, L4-5 left M51.26 Gastroesophageal reflux disease without esophagitis K21.9 Esophagitis presence: without esophagitis Stress incontinence in female N39.3 Radiculitis of right cervical region M54.12 Vitamin D deficiency E55.9 Allergic rhinitis due to other allergic trigger, unspecified seasonality J30.89 Allergic rhinitis seasonality: unspecified Allergic rhinitis trigger: other Additional Codes BEATRIZ-7 Assessment Billing - BEATRIZ-7 Assessment Tool: BEATRIZ-7 Assessment 34900 ([id number])
== END 2023-12-04 10:02 | disposition home or self-care (01) ==
PROVIDERS: PCP Internal Medicine; Visit Provider Internal Medicine
DX: M25.531 Pain in right wrist (principal); M25.532 Pain in left wrist; M79.7 Fibromyalgia; M51.26 Other intervertebral disc displacement, lumbar region; K21.9 Gastro-esophageal reflux disease without esophagitis; N39.3 Stress incontinence (female) (male); M54.12 Radiculopathy, cervical region; E55.9 Vitamin D deficiency, unspecified; J30.89 Other allergic rhinitis
CPT/HCPCS: 99214

== ENCOUNTER 2023-12-04 09:52 | Outpatient (REF) | payer OTHER, SELFPAY ==
[2023-12-04 13:16] LABS: MANUAL DIFF FLAG NO
[2023-12-04 13:42] LABS: Basophils Percent Auto 0.2 % (0-2); Eosinophils Absolute Auto 0.1 X10*3/uL (0.0-0.4); Eosinophils Percent Auto 1.9 % (0-4); Hematocrit 39.2 % (37.0-47.0); Imm Gran Abs Auto 0.02 X10*3/uL (0.00-0.03); Imm Gran Pct Auto 0.4 % (0.0-0.4); Lymphocytes Absolute Auto 1.5 X10*3/uL (1.2-4.9); Lymphocytes Percent Auto 27.8 % (20-40); Mean Corpuscular HGB Conc 33.2 g/dl (31.0-35.0); Mean Corpuscular Hemoglobin 29.4 pg (27.0-33.0); Mean Corpuscular Volume 88.7 fL (80.0-98.0); Mean Platelet Volume 11.2 fL (9.4-12.3); Monocytes Absolute Auto 0.4 X10*3/uL (0.1-1.2); Monocytes Percent Auto 7.8 % (2-11); Neutrophils Absolute Auto 3.4 x10*3/uL (2.0-8.3); Neutrophils Percent Auto 61.9 % (45-73); Platelet Count 257 X10*3/uL (160-400); Red Blood Count 4.42 X10*6/uL (4.20-5.50); Red Cell Distribution Width 12.4 % (11.0-16.0); White Blood Count 5.4 X10*3/uL (4.8-10.8)
[2023-12-04 14:31] LABS: Alanine Aminotransferase 9 U/L (0-31); Albumin Level 4.1 g/dL (3.5-5.0); Alkaline Phosphatase 67 U/L (39-117); Anion Gap 10 (12-20); Aspartate Amino Transferase 15 U/L (5-31); Bilirubin Total 0.4 mg/dL (0.0-1.0); Blood Urea Nitrogen 9 mg/dL (9-16); Calcium 9.1 mg/dL (8.4-10.2); Carbon Dioxide 28 mmol/L (22-29); Chloride 106 mmol/L (96-108); Cholesterol 222 mg/dL (<200); Estimated Glomerular Filt Rate > 60; Glucose Fasting 86 mg/dL (60-99); HDL Cholesterol 70 mg/dL (>40); LDL Cholesterol Calculated 137 mg/dL (<100); Potassium 4.8 mmol/L (3.3-5.1); Sodium 139 mmol/L (135-145); Total Protein 7.1 g/dL (6.5-8.0); Triglycerides 76 mg/dL (<150)
[2023-12-04 14:47] LABS: TSH reflex Free T4 1.96 uIU/mL (0.32-4.0)
[2023-12-05 20:33] LABS: LDL Cholesterol Direct 128 mg/dL (<100)
[2023-12-11 16:14] LABS: Vitamin D 25-OH, D2 <4 ng/mL; Vitamin D 25-OH, D3 15 ng/mL; Vitamin D 25-OH, Total 15 ng/mL (30-100)
== END 2023-12-04 09:53 | disposition home or self-care (01) ==
LOC: HO.HMGCLDS 09:52
PROVIDERS: PCP Internal Medicine; Visit Provider Internal Medicine
DX: M79.7 Fibromyalgia (principal); K21.9 Gastro-esophageal reflux disease without esophagitis; M51.26 Other intervertebral disc displacement, lumbar region; M54.12 Radiculopathy, cervical region; E55.9 Vitamin D deficiency, unspecified; J30.89 Other allergic rhinitis; N39.3 Stress incontinence (female) (male); M19.90 Unspecified osteoarthritis, unspecified site; K64.8 Other hemorrhoids
CPT/HCPCS: 36415; 80053; 80061; 82306; 83721; 84443; 85025

== ENCOUNTER 2024-04-08 10:47 | Outpatient (AMB) | payer OTHER, SELFPAY ==
[2024-04-08 10:50] VITALS: BP 118/66; PULSE 86; O2SAT 100; BMI 22.0
--- NOTE | 2024-04-08 10:50 | A.OFFPC_ITS ---
Vital Signs 04/08/24 10:50 Height 5 ft 2 in Weight 120 lb 2 oz BMI 22.0 BP 118/66 Blood Pressure Location Rt brachial Position Sitting Pulse 86 Pulse Source Pulse Oximeter Pulse Oximetry (%) 100 Oxygen Delivery Method Room Air Intake Visit Reasons: Thu/ Allergies prednisone Adverse Reaction (Mild, Verified 04/08/24 10:51) rectal bleeding cats/dogs Allergy (Unknown, Uncoded 09/11/23 09:03) itch Numerous food and environmenta Allergy (Unknown, Uncoded 09/11/23 09:03) hive Medication List - Last Reconciled 04/08/24 by Rodríguez Bonds MD azelastine intranasal cetirizine 10 mg PO DAILY PRN cholecalciferol (vitamin D3) 50 mcg PO DAILY famotidine 20 mg PO BID PRN fluticasone propionate 50 mcg/actuation (Flonase Allergy Relief) 1 spray intranasal DAILY hydrocortisone 1% (Anti-Itch (hydrocortisone)) 1 appl topical BID-QID PRN ketotifen fumarate 0.025%(0.035%) ([place]) 1 drp ophthalmic (eye) BID lidocaine HCl-hydrocortison ac 3-0.5 % 1 appl [place] BID 10 days nortriptyline 10 mg PO BEDTIME pregabalin 75 mg PO BID 90 days Tobacco use date assessed: 04/08/24 Dental Screening Dental Screen Date: 04/08/24 Did you have a dental visit in the last 12 months?: Yes Did you have a dental problem in the last 6 months where you did not have access to dental care?: No Was dental information given to patient?: Patient has dentist HPI Thu HPI Details History - bulleted - The patient is a 48-year-old female pr esenting for regular follow-up appointment medication refill - Manages back pain with medication major mens, under care of a specialist. Patient suffers from fibromyalgia, GERD and allergies, taking medications regularly and is stable at this time Problem List - Back Pain - fibromyalgia - allergies - GERD Medications - Cetirizine 10 mg daily for allergies. - Lyrica (Pregabalin) 75 mg twice daily for back pain. - Nortriptyline for back pain management , in coordination with a back specialist. - Nasonex nasal spray for allergy relief . Diagnostic results: Lab done last visit reviewed with the patient vitamin-D continued to be low she is already on supplement [facility] of Care - Under the care of a back specialist fo r pain management. Review of Systems - Respiratory: Denies chest pain, denies shortness of breath. - Gastrointestinal: Denies nausea, denie s vomiting. General: No fever no chills neurological: No headaches no dizziness ear nose throat: No sore throat no hearing difficulty no ear pain cardiovascular: No syncope, no chest pain, no palpitations gastrointestinal: No nausea vomiting or diarrhea endocrine: No polyuria polydipsia no heat intolerance genitourinary: No dysuria skin: No new complaints Physical Exam general: No acute distress HEENT: No acute findings neck: Supple respiratory system: Able to talk in full sentences, no audible wheeze no stridor cardiovascular: S1-S2 gastrointestinal: No nausea, vomiting extremities: No new findings PV INSTALLER TECH: Alert awake oriented x3 motor sensory intact skin: Normal turgor Patient Instructions - Continue current medications as prescr ibed. - Follow up with back specialist as curr ently scheduled. - Maintain current dose of Vitamin D. - Consider flu vaccination as discussed. Patient declined Follow-up 3 months [facility] Medical History Ectopic Multiple allergies Herniated lumbar disc without myelopathy GERD (gastroesophageal reflux disease) Fibromyalgia Surgical History H/O tubal ligation Family History Maternal Aunt Breast cancer Mother Fibromyalgia Paternal Grandfather Colon cancer Social History Housing: House Patient Tobacco Use Status: Never used Tobacco e-Cigarette/Vaping Use: Never Used Second Hand Smoke Exposure: No service: No Current occupational status: disabled Cognitive needs: No Hearing needs: No Vision needs: No Female Reproductive History Menstrual Age of Menarche: 13 Questionnaire Thrive Questionnaire Date Thrive assessed: 04/08/24 I am a: Patient What is your living situation today?: I have a steady place to live Within the past 12 months, did the food you bought not last and you didn't have the money to get more?: Never true Within the past 12 months, did you worry whether your food would run out before you got money to buy more?: Never true Do you have trouble paying for medicines?: No Do you have trouble getting transportation to medical appointments?: Yes Do you have trouble paying your heating and electricity bill?: No Do you have trouble taking care of your child, family member or friend?: No Do you have trouble with day-to-day activities such as bathing, preparing meals, shopping, managing finances, etc.?: No Are you currently unemployed and looking for a job?: No Are you interested in more education?: No Please select the resources that you would like help with: None Currently or been in a relationship where the following occur: No concerns reported THRIVE Score: 1 AUDIT C Alcohol Use Questionnaire (AUDIT-C) 1. How often do you have a drink containing alcohol?: Never 3. How often do you have six or more drinks on one occasion?: Never Total Score: 0 Score Reviewed/Action Taken: Yes BEATRIZ-7 AMB Questionnaire BEATRIZ-7 Date BEATRIZ - 7 assessed: 12/04/23 Source: Developed by Drs. Pino Lynn, Radha Uribe, Randy Agosto and colleagues, with an educational martita from [employer]. Physical exam (Primary Care) Vital Signs: Last Vital Signs Pulse 86 04/08/24 10:50 BP 118/66 04/08/24 10:50 Pulse Ox 100 04/08/24 10:50 Oxygen Delivery Method Room Air 04/08/24 10:50 BMI result Body Mass Index 22.0 Tobacco/Smoking Status: Tobacco use Status Tobacco use date assessed 04/08/24 04/08/24 10:54 Patient Tobacco Use Status Never used Tobacco 04/08/24 10:54 e-Cigarette/Vaping Use Never Used 04/08/24 10:54 Thrive Assessment: Date of Thrive Assessment Date Thrive assessed 04/08/24 04/08/24 10:54 Currently or been in a relationship where the following occur: No concerns reported Coding Level of Care Code Est Pt Level 4 (05969) Diagnoses Fibromyalgia M79.7 Gastroesophageal reflux disease without esophagitis K21.9 Esophagitis presence: without esophagitis Vitamin D deficiency E55.9 Allergic rhinitis due to other allergic trigger, unspecified seasonality J30.89 Allergic rhinitis trigger: other Allergic rhinitis seasonality: unspecified Environmental allergies Z91.09 Chronic bilateral low back pain without sciatica M54.50; G89.29 Back pain location: low back pain Back pain laterality: bilateral Sciatica presence: without sciatica Assessment & Plan Assessment & Plan (1) Fibromyalgia: Code(s): M79.7 - Fibromyalgia Category: Medical (2) Acid reflux: Code(s): K21.9 - Gastro-esophageal reflux disease without esophagitis Category: Medical Qualifiers: Esophagitis presence: without esophagitis Qualified Code(s): K21.9 - Gastro-esophageal reflux disease without esophagitis (3) Vitamin D deficiency: Code(s): E55.9 - Vitamin D deficiency, unspecified Category: Medical (4) Allergic rhinitis: Code(s): J30.9 - Allergic rhinitis, unspecified Category: Medical Qualifiers: Allergic rhinitis trigger: other Allergic rhinitis seasonality: unspecified Qualified Code(s): J30.89 - Other allergic rhinitis (5) Environmental allergies: Code(s): Z91.09 - Other allergy status, other than to drugs and biological substances Category: Medical (6) Chronic back pain: Code(s): M54.9 - Dorsalgia, unspecified; G89.29 - Other chronic pain Category: Medical Qualifiers: Back pain location: low back pain Back pain laterality: bilateral Sc iatica presence: without sciatica Qualified Code(s): M54.50 - Low back pain, unspecified; G89.29 - Other chronic pain Plan History - bulleted - The patient is a 48-year-old female presenting for regular follow-up appointment medication refill - Manages back pain with medication regimens, under care of a specialist. Patient suffers from fibromyalgia, GERD and allergies, taking medications regularly and is stable at this time Problem List - Back Pain - fibromyalgia - allergies - GERD Medications - Cetirizine 10 mg daily for allergies. - Lyrica (Pregabalin) 75 mg twice daily for back pain. - Nortriptyline for back pain management, in coordination with a back specialist. - Nasonex nasal spray for allergy relief. Diagnostic results: Lab done last visit reviewed with the patient vitamin-D continued to be low she is already on supplement [facility] of Care - Under the care of a back specialist for pain management. Review of Systems - Respiratory: Denies chest pain, denies shortness of breath. - Gastrointestinal: Denies nausea, denies vomiting. General: No fever no chills neurological: No headaches no dizziness ear nose throat: No sore throat no hearing difficulty no ear pain cardiovascular: No syncope, no chest pain, no palpitations gastrointestinal: No nausea vomiting or diarrhea endocrine: No polyuria polydipsia no heat intolerance genitourinary: No dysuria skin: No new complaints Physical Exam general: No acute distress HEENT: No acute findings neck: Supple respiratory system: Able to talk in full sentences, no audible wheeze no stridor cardiovascular: S1-S2 gastrointestinal: No nausea, vomiting extremities: No new findings PV INSTALLER TECH: Alert awake oriented x3 motor sensory intact skin: Normal turgor Patient Instructions - Continue current medications as prescribed. - Follow up with back specialist as currently scheduled. - Maintain current dose of Vitamin D. - Consider flu vaccination as discussed. Patient declined Follow-up 3 months Medications: New cholecalciferol (vitamin D3) 50 mcg PO DAILY 90 caps 3RF Changed From famotidine 20 mg PO BID PRN 90 tabs 0RF heartburn To famotidine 20 mg PO .qd PRN 90 tabs 0RF heartburn Refilled pregabalin 75 mg PO BID 90 days 180 caps 0RF
== END 2024-04-08 11:09 | disposition home or self-care (01) ==
PROVIDERS: PCP Internal Medicine; Visit Provider Internal Medicine
DX: M79.7 Fibromyalgia (principal); K21.9 Gastro-esophageal reflux disease without esophagitis; E55.9 Vitamin D deficiency, unspecified; J30.89 Other allergic rhinitis; Z91.09 Other allergy status, other than to drugs and biological substances; M54.50 Low back pain, unspecified; G89.29 Other chronic pain

== ENCOUNTER → 2024-04-08 10:47 | Outpatient (BNVA) | payer OTHER, SELFPAY | PROVIDERS: PCP Internal Medicine; Visit Provider Internal Medicine ==

== ENCOUNTER 2024-04-29 14:27 | Outpatient (AMB) | payer OTHER, SELFPAY ==
--- NOTE | 2024-04-29 14:33 | MHC.OFFVIS ---
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 Office Operator Services: Central Office Operator Present Information Interpreted: clinical only Transcription Coordinator: Transcription Coordinator Present Allergies prednisone Adverse Reaction (Mild, Verified 04/29/24 14:34) rectal bleeding cats/dogs Allergy (Unknown, Uncoded 04/29/24 14:34) itch Numerous food and environmenta Allergy (Unknown, Uncoded 04/29/24 14:34) hive Medication List - Last Reconciled 04/29/24 by Niya Dorsey CNM azelastsekou intranasal cetirizine 10 mg PO DAILY PRN cholecalciferol (vitamin D3) 50 mcg PO DAILY famotidine 20 mg PO .qd PRN fluticasone propionate 50 mcg/actuation (Flonase Allergy Relief) 1 spray intranasal DAILY hydrocortisone 1% (Anti-Itch (hydrocortisone)) 1 appl topical BID-QID PRN ketotifen fumarate 0.025%(0.035%) ([place]) 1 drp ophthalmic (eye) BID lidocaine HCl-hydrocortison ac 3-0.5 % 1 appl [place] BID 10 days nortriptyline 10 mg PO BEDTIME pregabalin 75 mg PO BID 90 days Is last menstrual period known: Yes Last menstrual period: 04/14/24 HPI HPI 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 Additionally she did get injections in her low back and they have helped with her back pain to. She also got sent to Urogynecology who discussed the option of pelvic floor therapy which she already had the referral for (the only person doing PT for pelvic floor was apparently out on maternity leave) and she had the option of surgery discussed and also of placing a ring inside her vagina. For now she is doing okay with that and is seeing how things go. She does her exercises for her lower back which involves the pelvic Region. She gets her yearly mammograms and has her next 1 coming up in May. She says that they found a cyst 1 year but it was okay. She does feels some bloating sometimes her periods are starting to skip sometimes and be light 1 month and heavy the next. [facility] Medical History Ectopic Multiple allergies Herniated lumbar disc without myelopathy GERD (gastroesophageal reflux disease) Fibromyalgia Surgical History H/O tubal ligation Family History Maternal Aunt Breast cancer Mother Fibromyalgia Paternal Grandfather Colon cancer Social History Housing: House Patient Tobacco Use Status: Never used Tobacco e-Cigarette/Vaping Use: Never Used Second Hand Smoke Exposure: No service: No Current occupational status: disabled Cognitive needs: No Hearing needs: No Vision needs: No Female Reproductive History Menstrual Age of Menarche: 13 Duration of menses: other Date of last menstrual period: 04/14/24 control method: permanent sterilization Total pregnancies: 4 Full term: 2 Ab spontaneous: 1 Ectopics: 1 Date of last pap smear: 01/27/23 (negative) History of abnormal pap smear: No Date of Mammogram: 05/25/23 (negative) Physical Exam Vital Signs: Last Vital Signs BP 112/62 04/29/24 14:34 BMI result Body Mass Index 21.8 Const General: healthy appearing, comfortable, no acute distress, well developed and alert Nutritional Appearance: average body habitus Orientation/consciousness: patient oriented x3 Limitations: no limitations HEENT Head: Yes normocephalic Neck Neck: Yes normal visual inspection Chest Chest palpation & inspection: normal inspection of the chest Breast/axilla inspection: normal inspection of the breasts and normal inspection of the axillae Breast/axilla palpation: normal palpation of the breasts and normal palpation of the axillae Resp Effort & Inspection: normal respiratory effort GI Inspection: Yes normal to inspection, No Abdominal wall edema and No distended Palpation (GI): Soft to palpation and nontender Other: Normal external exam vagina is pink and moist with whitish yellowish mucousy discharge consistent with recent ovulation cervix multiparous long close thick mobile uterus is anteverted and globular and enlarged. Adnexa nontender not enlarged patient does have good tone with Kegel that she has been practicing General: Yes bladder normal to palpation External Female Exam: normal external appearance and normal appearance of the urethra Speculum Exam - Vagina: normal appearance of the vagina, normal palpation and normal vaginal discharge Speculum Exam - Cervix: normal appearance of the cervix, normal palpation and nontender Bimanual exam- vagina & uterus: normal bimanual exam, normal palpation, uterine size normal, bladder normal to palpation, consistency normal, normal palpation, uterine mobility normal, uterine shape normal, No Cervical tenderness present, non-tender and no cervical motion tenderness Bimanual Exam- Adnexa, other: normal adnexae, no masses, normal and No adnexal tenderness Neuro General: patient oriented x3 Results Reviewed Results Reviewed: [address] [address] Ultrasound Report Signed Patient: China Burns MR#: [id number] : 1975 Acct:[id number] Age/Sex: 47 / F ADM Date: 02/24/23 Loc: .US Attending Dr: Niya Dorsey CNM Ordering Physician: Niya Dorsey CNM Date of Service: 02/24/23 Procedure(s): US pelvic and transvaginal Accession Number(s): [id number] cc: Rodríguez Bonds MD; Niya Dorsey CNM~ EXAMINATION: US PELVIS COMPLETE CLINICAL INFORMATION: Stress incontinence COMPARISON: None TECHNIQUE: Transabdominal and transvaginal imaging was performed. FINDINGS: The uterus measures 11.7 x 6.1 x 8.1 cm. A 5.5 x 4.4 x 6.1 cm transmural myoma in the left body of the uterus with a probable submucosal component. A regular homogeneous endometrium is identified measuring 0.4 cm. Nabothian cysts in the cervix. Both ovaries are of normal size and echogenicity. The right measures 2.5 x 2.1 x 2.0 cm for a volume of 1.3 mL. The left measures 2.5 x 1.1 x 1.7 cm for a volume of 2.4 mL. There is no pelvic free fluid. US/US pelvic and transvaginal IMPRESSION: A 6.1 cm transmural myoma in the left body of the uterus with a probable submucosal component. Dictated By: Cate Tolentino MD Signed By: <Electronically signed by Cate Tolentino MD in OV> 02/26/23 1849 DD/ 1341 TD/TT: Assessment & Plan Assessment & Plan (1) Bulky or enlarged uterus: Comment: May be within normal limits anteverted feels possibly consistent with an 8 weeks size uterus will get ultrasound to see if there are fibroids.//6 cm intramural fibroid noted discussed with patient.; 04/29/2024 ordering follow-up ultrasound to re-evaluate. Code(s): N85.2 - Hypertrophy of uterus Category: Medical (2) Uterine fibroid: Code(s): D25.9 - Leiomyoma of uterus, unspecified Category: Medical Qualifiers: Uterine leiomyoma location: unspecified location Qualified Code(s): D25.9 - Leiomyoma of uterus, unspecified (3) Stress incontinence in female: Code(s): N39.3 - Stress incontinence (female) (male) Category: Medical (4) Encounter for routine gynecological examination: Code(s): Z01.419 - Encounter for gynecological examination (general) (routine) without abnormal findings Category: Medical (5) Cervical cancer screening: Comment: 01/23/2023 Pap is negative with negative HPV abundant inflammation. Code(s): Z12.4 - Encounter for screening for malignant neoplasm of cervix Category: Medical (6) Perimenopause: Code(s): N95.1 - Menopausal and female climacteric states Category: Medical Plan -----Discussed in this visit the following: healthy balanced diet, regular and consistent exercise, getting recommended health screens, doing the best she can for her particular health concerns, kegel exercises, pap smear screening and followup recommendations, mammography screening and SBE, normal changes in cycles in her life stage--- . See HPI for some more of the discussion. She has her mammogram scheduled for next month. She has already seen physical therapy and urology for discussions of the stress incontinence and she does her Kegel's in conjunction with her pelvic exercises for her lower back and she is well-versed in how to do them demonstrated them for me. For now she is going to wait and see what happens with the stress incontinence as it seems to be responding to exercises. Discussed that we will have a follow-up visit after the ultrasound at an ordering for her. The ultrasound is to check on whether not fibroid has grown. We will have a follow-up visit after and depending on the findings she may be referred. Discussed that if she did end discussing surgery for fibroid that it would probably be useful to also discuss with urology if there were concurrent surgeries that would be done for now she had very good tone Kegel she is doing she can. She had no worries at all about infection and declines testing. Also discussed the lona menopausal changes she is experiencing including menses occasionally being heavy and sometimes being very light. Orders: Orders US pelvic and transvaginal Today D25.9 - Leiomyoma of uterus, unspecified, N85.2 - Hypertrophy of uterus Coding Level of Care Code Est Pt Prev Care 40-64y(98460) Diagnoses Bulky or enlarged uterus N85.2 Uterine leiomyoma, unspecified location D25.9 Uterine leiomyoma location: unspecified location Stress incontinence in female N39.3 Encounter for routine gynecological examination Z01.419 Cervical cancer screening Z12.4 Perimenopause N95.1
[2024-04-29 14:34] VITALS: BP 112/62; BMI 21.8
== END 2024-04-29 15:13 | disposition home or self-care (01) ==
PROVIDERS: PCP Internal Medicine; Visit Provider Advanced Practice Midwife
DX: Z01.419 Encounter for gynecological examination (general) (routine) without abnormal findings (principal); N85.2 Hypertrophy of uterus; D25.9 Leiomyoma of uterus, unspecified; N39.3 Stress incontinence (female) (male)
CPT/HCPCS: 99396; 99459

== ENCOUNTER 2024-05-13 12:42 | Outpatient (REF) | payer OTHER, SELFPAY ==
--- NOTE | ~2024-05-13 | US_ITS ---
CLINICAL HISTORY: N85.2 - Hypertrophy of uterus US pelvis transvaginal Comparison: 02/24/2023 Findings: Transvaginal scanning performed. Anteverted uterus is 13.8 cm length. Normal myometrium. No endometrial lesion with the endometrium largely obscured. There is a fundal myometrial/submucosal 6.9 x 6.3 x 6.0 cm leiomyoma, previously measuring 5.6 x 5.5 x 4.7 cm. Right ovary 2.0 x 2.0 x 1.8 cm. Left ovary 2.4 x 1.5 x 1.2 cm. Normal color Doppler of both ovaries. No free fluid. IMPRESSION: 1. Uterine fundal submucosal leiomyoma This document has been electronically signed by: Ponce Ann MD on 05/14/2024 09:18:33
== END 2024-05-13 12:43 | disposition home or self-care (01) ==
LOC: HO.US 12:42
PROVIDERS: PCP Internal Medicine; Visit Provider Advanced Practice Midwife
DX: N85.2 Hypertrophy of uterus (principal); D25.9 Leiomyoma of uterus, unspecified
CPT/HCPCS: 76830; 76856

== ENCOUNTER → 2024-05-13 12:44 | Outpatient (BNV) | payer OTHER, SELFPAY | PROVIDERS: PCP Internal Medicine; Visit Provider Specialist | DX: N85.2 Hypertrophy of uterus (principal) | CPT/HCPCS: 76830 ==

== ENCOUNTER 2024-05-30 11:24 | Outpatient (REF) | payer OTHER, SELFPAY | END 2024-05-30 11:25 | disposition home or self-care (01) | LOC: HO.MAMMO 11:24 | PROVIDERS: PCP Internal Medicine; Visit Provider Internal Medicine | DX: Z12.31 Encounter for screening mammogram for malignant neoplasm of breast (principal) | CPT/HCPCS: 77063; 77067 ==

== ENCOUNTER → 2024-05-30 11:30 | Outpatient (BNV) | payer OTHER, SELFPAY | PROVIDERS: PCP Internal Medicine; Visit Provider Internal Medicine | DX: Z12.31 Encounter for screening mammogram for malignant neoplasm of breast (principal) | CPT/HCPCS: 77063; 77067 ==

== ENCOUNTER 2024-06-10 13:26 | Outpatient (AMB) | payer OTHER, SELFPAY ==
[2024-06-10 13:26] VITALS: BP 118/70; BMI 21.8
--- NOTE | 2024-06-10 13:26 | MHC.OFFVIS ---
Vital Signs 06/10/24 13:26 Height 5 ft 2 in Weight 119 lb BMI 21.8 BP 118/70 Intake Visit Reasons: US follow up Clinical Fellow Required: No Clinical Fellow Services: Clinical Fellow Present Information Interpreted: clinical only Front Office Administrator: Front Office Administrator Present Allergies prednisone Adverse Reaction (Mild, Verified 06/10/24 13:26) rectal bleeding cats/dogs Allergy (Unknown, Uncoded 06/10/24 13:26) itch Numerous food and environmenta Allergy (Unknown, Uncoded 06/10/24 13:26) hive Medication List - Last Reconciled 06/10/24 by Niya Dorsey CNM azelastine intranasal cetirizine 10 mg PO DAILY PRN cholecalciferol (vitamin D3) 50 mcg PO DAILY famotidine 20 mg PO .qd PRN fluticasone propionate 50 mcg/actuation (Flonase Allergy Relief) 1 spray intranasal DAILY hydrocortisone 1% (Anti-Itch (hydrocortisone)) 1 appl topical BID-QID PRN ketotifen fumarate 0.025%(0.035%) ([place]) 1 drp ophthalmic (eye) BID lidocaine HCl-hydrocortison ac 3-0.5 % 1 appl [place] BID 10 days nortriptyline 10 mg PO BEDTIME pregabalin 75 mg PO BID 90 days Is last menstrual period known: Yes Last menstrual period: 06/07/24 HPI HPI US follow up: Details: Review done to check on her fibroid to see if it had grown at all.. She has had issues with urinary incontinence in the past and has gone to [facility] urogynecology and had discussions about pelvic floor therapy versus surgery with a mesh versus a pessary. She had a known fibroid. She says her periods sometimes are heavy . She says there are times when very heavy for about 3 days and she is afraid staining her clothes. She says sometimes she feels heavy and they are times when it is getting more uncomfortable when she has sex w her . She sees her primary care provider and gets regular checkups. At the last visit she had said that things were fairly stable as status quo and in previous discussions of whether not to intervene, she had decided against any intervention in conversations with urogynecology. She has done pelvic floor therapy. [facility] Medical History Ectopic Multiple allergies Herniated lumbar disc without myelopathy GERD (gastroesophageal reflux disease) Fibromyalgia Surgical History H/O tubal ligation Family History Maternal Aunt Breast cancer Mother Fibromyalgia Paternal Grandfather Colon cancer Social History Housing: House Patient Tobacco Use Status: Never used Tobacco e-Cigarette/Vaping Use: Never Used Second Hand Smoke Exposure: No service: No Current occupational status: disabled Cognitive needs: No Hearing needs: No Vision needs: No Female Reproductive History Menstrual Age of Menarche: 13 Date of last menstrual period: 06/07/24 control method: none Total pregnancies: 2 Full term: 2 Date of last pap smear: 01/27/23 (neg) Results Reviewed Results Reviewed: Patient: China Burns MR#: [id number] : 1975 Acct:[id number] Age/Sex: 49 / F ADM Date: 05/13/24 Loc: HO.US Attending Dr: Niya Dorsey CNM Ordering Physician: Niya Dorsey CNM Date of Service: 05/13/24 Procedure(s): US pelvic and transvaginal Accession Number(s): [id number] cc: Rodríguez Bonds MD; Niya Dorsey CNM~ CLINICAL HISTORY: N85.2 - Hypertrophy of uterus US pelvis transvaginal Comparison: 02/24/2023 Findings: Transvaginal scanning performed. Anteverted uterus is 13.8 cm length. Normal myometrium. No endometrial lesion with the endometrium largely obscured. There is a fundal myometrial/submucosal 6.9 x 6.3 x 6.0 cm leiomyoma, previously measuring 5.6 x 5.5 x 4.7 cm. Right ovary 2.0 x 2.0 x 1.8 cm. Left ovary 2.4 x 1.5 x 1.2 cm. Normal color Doppler of both ovaries. No free fluid. IMPRESSION: 1. Uterine fundal submucosal leiomyoma This document has been electronically signed by: Ponce Ann MD on 05/14/2024 09:18:33 Dictated By: Ponce Ann MD Signed By: <Electronically signed by Ponec Ann MD in OV> 05/14/24918 DD/ 7 TD/TT: 05/14/24917 Manager Ems: atient: China Burns MR#: [id number] : 1975 Acct:[id number] Age/Sex: 49 / F ADM Date: 05/30/24 Loc: HO.MAMMO Attending Dr: Rodríguez Bonds MD Ordering Physician: Rodríguez Bonds MD Results: 2Benign Findings Date of Service: 05/30/24 Follow Up: 1 Year From Original Mammogram Procedure(s): MM tomosynthesis screening BI Accession Number(s): [id number] cc: Rodríguez Bonds MD~ EXAMINATION: MM SCREENING DIGITAL BREAST TOMOSYNTHESIS, BILATERAL CLINICAL INFORMATION: Screening. Asymptomatic. COMPARISON: Mammography: Comparison is made with available priors TECHNIQUE: Digital breast mammography with tomosynthesis is performed in both the craniocaudal and mediolateral oblique views along with computer-aided detection (CAD). FINDINGS: The breasts are heterogeneously dense, which may obscure small masses (ACR BI-RADS breast composition Category c). Right post surgical changes. Bilateral scattered asymmetries are stable dating back to 2017. There are no significant masses, abnormal calcifications, or other abnormalities. MM/MM tomosynthesis screening BI IMPRESSION: No mammographic evidence of malignancy. ASSESSMENT: BI-RADS BI-RADS 2 - Benign Findings RECOMMENDATION: Routine annual mammography screening. 1 year F/U This examination should not preclude the clinical evaluation of a suspicious palpable abnormality. This patient's information was entered into a reminder system with a target due date for their next mammogram. Electronically signed by: Teresa Mirza DO 06/07/2024 02:44 PM EST Dictated By: Teresa Mirza DO Signed By: <Electronically signed by Teresa Mirza DO in OV> 06/07/24 1444 DD/ 1130 TD/TT: 05/30/24 1150 Manager Ems: Assessment & Plan Assessment & Plan (1) Stress incontinence in female: Code(s): N39.3 - Stress incontinence (female) (male) Category: Medical (2) H/O dysmenorrhea: Code(s): Z87.42 - Personal history of other diseases of the female genital tract Category: Medical (3) Bulky or enlarged uterus: Comment: May be within normal limits anteverted feels possibly consistent with an 8 weeks size uterus will get ultrasound to see if there are fibroids.//6 cm intramural fibroid noted discussed with patient.; 04/29/2024 ordering follow-up ultrasound to re-evaluate.-see fibroid entry. Code(s): N85.2 - Hypertrophy of uterus Category: Medical (4) Uterine fibroid: Comment: 04/2024 fibroid has increased slightly to 6.9 cm. Code(s): D25.9 - Leiomyoma of uterus, unspecified Category: Medical Qualifiers: Uterine leiomyoma location: unspecified location Qualified Code(s): D25.9 - Leiomyoma of uterus, unspecified (5) Perimenopause: Code(s): N95.1 - Menopausal and female climacteric states Category: Medical Plan I reviewed the patient's ultrasound with her she had looked at it already herself. Discussed all of her issues and concerns suggested that if she were going to consider any kind of surgical intervention it should be with thought and conversation with provider's looking at both the urological as well as the gynecological issues , ie:the incontinence issue as well as the fibroid. She ask me what I thought in terms of the best management plan and I was not able to give her clear guidance as I am not a surgeon and there were many considerations but I just think that there should be a thorough discussion of all of the issues. Discussed the possibility that she may want to consider returning and having discussions with urogynecology but I was not sure of next steps. Discussed with magnetic resonance imaging coordinator and patient we will be referred to have an appointment with him to discuss options going forward to consider I discussed with her that it is possible she maybe recommended to have an endometrial biopsy. Most recent blood work that she had done was in November and she was not anemic and her thyroid was within limits as well. Coding Level of Care Code Est Pt Level 3 (96861) Diagnoses Stress incontinence in female N39.3 H/O dysmenorrhea Z87.42 Bulky or enlarged uterus N85.2 Uterine leiomyoma, unspecified location D25.9 Uterine leiomyoma location: unspecified location Perimenopause N95.1
== END 2024-06-10 14:41 | disposition home or self-care (01) ==
PROVIDERS: PCP Internal Medicine; Visit Provider Advanced Practice Midwife
DX: N39.3 Stress incontinence (female) (male) (principal); Z87.42 Personal history of other diseases of the female genital tract; N85.2 Hypertrophy of uterus; D25.9 Leiomyoma of uterus, unspecified; N95.1 Menopausal and female climacteric states
CPT/HCPCS: 99213

== ENCOUNTER → 2024-06-10 13:26 | Outpatient (BNVA) | payer OTHER, SELFPAY | PROVIDERS: PCP Internal Medicine; Visit Provider Advanced Practice Midwife ==

== ENCOUNTER 2024-07-05 09:52 | Outpatient (AMB) | payer OTHER, SELFPAY ==
[2024-07-05 09:58] VITALS: BP 112/70; PULSE 67; RESP 16; TEMP 36.7; O2SAT 98; BMI 22.3
--- NOTE | 2024-07-05 09:58 | A.OFFPC_ITS ---
Vital Signs 07/05/24 09:58 Height 5 ft 2 in Weight 122 lb 1 oz BMI 22.3 BP 112/70 Blood Pressure Location Rt brachial Position Sitting Respiration 16 Pulse 67 Pulse Source Pulse Oximeter Temp 98.1 F Temp Source Oral Pulse Oximetry (%) 98 Oxygen Delivery Method Room Air Intake Visit Reasons: PE Allergies prednisone Adverse Reaction (Mild, Verified 07/05/24 09:58) rectal bleeding cats/dogs Allergy (Unknown, Uncoded 06/10/24 13:26) itch Numerous food and environmenta Allergy (Unknown, Uncoded 06/10/24 13:26) hive Medication List - Last Reconciled 07/05/24 by Rodríguez Bonds MD azelastine intranasal cetirizine 10 mg PO DAILY PRN cholecalciferol (vitamin D3) 50 mcg PO DAILY famotidine 20 mg PO .qd PRN fluticasone propionate 50 mcg/actuation (Flonase Allergy Relief) 1 spray intranasal DAILY hydrocortisone 1% (Anti-Itch (hydrocortisone)) 1 appl topical BID-QID PRN ketotifen fumarate 0.025%(0.035%) ([place]) 1 drp ophthalmic (eye) BID lidocaine HCl-hydrocortison ac 3-0.5 % 1 appl SC BID 10 days nortriptyline 10 mg PO BEDTIME pregabalin 75 mg PO BID 90 days Tobacco use date assessed: 07/05/24 Dental Screening Dental Screen Date: 07/05/24 Did you have a dental visit in the last 12 months?: Yes Did you have a dental problem in the last 6 months where you did not have access to dental care?: No Was dental information given to patient?: Patient has dentist HPI PE HPI Details History of Present Illness - The patient is a 49-year-old female pr esenting for a physical exam and laboratory test evaluation. - She reports palpitations occurring twi ce since March, initially coinciding with hypoglycemic episodes during fasting when blood sugar was recorded at 56 mg/dL. - Previously underwent an ultrasound césar ntifying a substantial submucosal uterine fibroid, currently causing significant menorrhagia and under consideration for surgical removal. - Reports chronic pain associated with a herniated intervertebral disc at L4-L5 and sacroiliac joint, managed with interventions from pain management specialists. Through [facility], amitriptyline is through PSS - Denies persistence of uterine incontin ence following exercise interventions. - Occasional allergic conjunctivitis man aged with antihistamine eye drops and eczema on the hands treated with topical hydrocortisone. - Reports persistent back pain despite o ngoing therapy for fibromyalgia, insomnia, and chronic headaches. Health Maintenance - Regular vitamin D supplementation disc ussed due to prior low levels. - Recent mammogram performed and was up- to-date as of the last report. - Colonoscopy warranted, awaiting detail ed records to determine scheduling. - Follow-up blood work scheduled to narayan uate various health parameters including vitamin D levels. - Ongoing management for GERD with dionne moncada. Qagan Tayagungin of Care: [facility] for chronic lumbar disc herniation and pain management Medications - Vitamin D supplement for deficiency. - Antihistamine eye drops for allergic c onjunctivitis. - Famotidine for gastroesophageal reflux disease (GERD). - Hydrocortisone cream for eczema manage ment. - Nortriptyline for chronic headache man agement and back pain related to fibromyalgia. - Lyrica for fibromyalgia. Through PCP Diagnostic results - Labs: Upcoming blood work scheduled. - Ultrasound: Revealed a submucosal uter ine fibroid of 6.9 x 6.3 x 6.0 cm. - Colonoscopy: Patient advised to bring prior report to verify previous findings of hemorrhoids. Patient Instructions - Continue current medications for aller gies, eczema, GERD, and fibromyalgia as directed. - Reminder to schedule and undergo the r ecommended upcoming blood work fasting; nothing to eat after dinner prior to the test. - Preparation to bring previous colonosc opy report at the next appointment to clarify timing and findings. - Continue exercises to manage uterine i ncontinence symptoms. - Follow-up with any changes to symptoms or any new concerns for re-evaluation. Review of Systems - Ophthalmologic: Reports intermittent e ye itchiness. - General: No fever no chills - Neurological: No headaches no dizzin ess - Ear nose throat: No sore throat no hearing difficulty no ear pain - Cardiovascular: No syncope, no chest pain, no palpitations - Gastrointestinal: No nausea vomiting or diarrhea - Endocrine: No polyuria polydipsia no heat intolerance - Genitourinary: No dysuria - Skin: No new complaints Physical Exam General: Cooperative, healthy appearing, comfortable, no acute distress Orientation: Patient oriented x3 Head: Normal to inspection Ears: Within normal limit visually Nose: Normal external nose present Face and sinus: Normal facial exam Eyes: Appearance normal, extraocular movement intact pupils reactive Neck: Normal visual inspection and supple Respiratory: Normal respiratory effort and able to speak in complete sentences. Clear to auscultation, no stridor Cardiovascular: S1 and S2, noted palpitations described as galloping Breast exam through OBGYN GI: Normal to inspection. Soft to palpation and nontender Skin: Turgor normal, no acute findings Neuro: Patient oriented x3, motor sensory intact, balance intact, tandem pass straight leg mildly positive right side Extremities: Normal to inspection [facility] Medical History Ectopic Multiple allergies Herniated lumbar disc without myelopathy GERD (gastroesophageal reflux disease) Fibromyalgia Surgical History H/O tubal ligation Family History Maternal Aunt Breast cancer Mother Fibromyalgia Paternal Grandfather Colon cancer Social History Housing: House Patient Tobacco Use Status: Never used Tobacco e-Cigarette/Vaping Use: Never Used Second Hand Smoke Exposure: No service: No Current occupational status: disabled Cognitive needs: No Hearing needs: No Vision needs: No Female Reproductive History Menstrual Age of Menarche: 13 Questionnaire PHQ-9 Over the last 2 weeks, how often have you been bothered by any of the following problems? 1. Little interest or pleasure in doing things: not at all 2. Feeling down, depressed, or hopeless: not at all 3. Trouble falling or staying asleep, or sleeping too much: not at all 4. Feeling tired or having little energy: not at all 5. Poor appetite or overeating: not at all 6. Feeling bad about yourself - or that you are a failure or have let yourself or your family down: not at all 7. Trouble concentrating on things, such as reading the newspaper or watching television: not at all 8. Moving or speaking so slowly that other people could have noticed. Or the opposite - being so fidgety or restless that you have been moving around a lot more than usual: not at all 9. Thoughts that you would be better off or of hurting yourself in some way: not at all Total score: 0 Depression Screening Interpretation: Negative Depression Screening Done: Yes 63310 - PHQ-9 Billing: Yes Source: Developed by Drs. Pino Lynn, Radha Uribe, Randy Agosto and colleagues, with an educational martita from [employer]. Thrive Questionnaire Date Thrive assessed: 07/05/24 I am a: Patient What is your living situation today?: I have a steady place to live Within the past 12 months, did the food you bought not last and you didn't have the money to get more?: Often true Within the past 12 months, did you worry whether your food would run out before you got money to buy more?: Never true Do you have trouble paying for medicines?: No Do you have trouble getting transportation to medical appointments?: No Do you have trouble paying your heating and electricity bill?: No Do you have trouble taking care of your child, family member or friend?: No Do you have trouble with day-to-day activities such as bathing, preparing meals, shopping, managing finances, etc.?: No Are you currently unemployed and looking for a job?: I choose not to answer this question Are you interested in more education?: I choose not to answer this question Please select the resources that you would like help with: None Currently or been in a relationship where the following occur: No concerns reported THRIVE Score: 1 AUDIT C Alcohol Use Questionnaire (AUDIT-C) 1. How often do you have a drink containing alcohol?: Never 3. How often do you have six or more drinks on one occasion?: Never Total Score: 0 Score Reviewed/Action Taken: Yes BEATRIZ-7 AMB Questionnaire BEATRIZ-7 Date BEATRIZ - 7 assessed: 07/05/24 Feeling nervous, anxious, or on edge: 0 = Not at all Not being able to stop or control worryin = Not at all Worrying too much about different things: 0 = Not at all Trouble relaxin = Not at all Being so restless that it is hard to sit still: 0 = Not at all Becoming easily annoyed or irritable: 0 = Not at all Feeling afraid as if something awful might happen: 0 = Not at all Total BEATRIZ-7 score (0-4 normal; 5-9 mild; 10-14 moderate; 15-21 severe): 0 Source: Developed by Drs. Pino Lynn, Radha Uribe, Randy Agosto and colleagues, with an educational martita from [employer]. BEATRIZ-7 Assessment Billing BEATRIZ-7 Assessment Tool: BEATRIZ-7 Assessment 74690 Physical exam (Primary Care) Vital Signs: Last Vital Signs Temp 98.1 F 07/05/24 09:58 Pulse 67 07/05/24 09:58 Resp 16 07/05/24 09:58 BP 112/70 07/05/24 09:58 Pulse Ox 98 07/05/24 09:58 Oxygen Delivery Method Room Air 07/05/24 09:58 BMI result Body Mass Index 22.3 Tobacco/Smoking Status: Tobacco use Status Tobacco use date assessed 07/05/24 07/05/24 10:01 Patient Tobacco Use Status Never used Tobacco 07/05/24 10:01 e-Cigarette/Vaping Use Never Used 07/05/24 10:01 PHQ-9: PHQ-9 Score PHQ-9: Total score 0 07/05/24 10:01 Depression Screening Interpretation: Negative Thrive Assessment: Date of Thrive Assessment Date Thrive assessed 07/05/24 07/05/24 10:01 Currently or been in a relationship where the following occur: No concerns reported Coding Level of Care Code Est Pt Level 3 (37666) Est Pt Prev Care 40-64y(89272) Diagnoses Encounter for general adult medical examination with abnormal findings Z00.01 Palpitations R00.2 Other hemorrhoids K64.8 Hemorrhoid type: other Stress incontinence in female N39.3 Fibromyalgia M79.7 Herniated nucleus pulposus, L4-5 left M51.26 Gastroesophageal reflux disease without esophagitis K21.9 Esophagitis presence: without esophagitis Vitamin D deficiency E55.9 Allergic rhinitis due to other allergic trigger, unspecified seasonality J30.89 Allergic rhinitis seasonality: unspecified Allergic rhinitis trigger: other Environmental allergies Z91.09 Chronic bilateral low back pain without sciatica M54.50; G89.29 Back pain laterality: bilateral Back pain location: low back pain Sciatica presence: without sciatica Intrinsic eczema L20.84 Eczema type: intrinsic Additional Codes BEATRIZ-7 Assessment Billing - BEATRIZ-7 Assessment Tool: BEATRIZ-7 Assessment 20232 ([id number]) PHQ-9 - 05804 - PHQ-9 Billing: Yes ([id number]) Assessment & Plan Assessment & Plan (1) Encounter for general adult medical examination with abnormal findings: Code(s): Z00.01 - Encounter for general adult medical examination with abnormal findings Category: Medical (2) Palpitations: Code(s): R00.2 - Palpitations Category: Medical (3) Hemorrhoids: Code(s): K64.9 - Unspecified hemorrhoids Category: Medical Qualifiers: Hemorrhoid type: other Qualified Code(s): K64.8 - Other hemorrhoids (4) Stress incontinence in female: Code(s): N39.3 - Stress incontinence (female) (male) Category: Medical (5) Fibromyalgia: Code(s): M79.7 - Fibromyalgia Category: Medical (6) Herniated nucleus pulposus, L4-5 left: Code(s): M51.26 - Other intervertebral disc displacement, lumbar region Category: Medical (7) Acid reflux: Code(s): K21.9 - Gastro-esophageal reflux disease without esophagitis Category: Medical Qualifiers: Esophagitis presence: without esophagitis Qualified Code(s): K21.9 - Gastro-esophageal reflux disease without esophagitis (8) Vitamin D deficiency: Code(s): E55.9 - Vitamin D deficiency, unspecified Category: Medical (9) Allergic rhinitis: Code(s): J30.9 - Allergic rhinitis, unspecified Category: Medical Qualifiers: Allergic rhinitis seasonality: unspecified Allergic rhinitis trigger: other Qualified Code(s): J30.89 - Other allergic rhinitis (10) Environmental allergies: Code(s): Z91.09 - Other allergy status, other than to drugs and biological substances Category: Medical (11) Chronic back pain: Code(s): M54.9 - Dorsalgia, unspecified; G89.29 - Other chronic pain Category: Medical Qualifiers: Back pain laterality: bilateral Back pain location: low back pain Sciatica presence: without sciatica Qualified Code(s): M54.50 - Low back pain, unspecified; G89.29 - Other chronic pain (12) Eczema: Code(s): L30.9 - Dermatitis, unspecified Category: Medical Qualifiers: Eczema type: intrinsic Qualified Code(s): L20.84 - Intrinsic (allergic) eczema Plan History of Present Illness - The patient is a 49-year-old female presenting for a physical exam and laboratory test evaluation. Has a history of hemorrhoids seen on previous colonoscopy when patient was bleeding rectally, record of colonoscopy not available - She reports palpitations occurring twice since March, initially coinciding with hypoglycemic episodes during fasting when blood sugar was recorded at 56 mg/dL. - Previously underwent an ultrasound identifying a substantial submucosal uterine fibroid, currently causing significant menorrhagia and under consideration for surgical removal. - Reports chronic pain associated with a herniated intervertebral disc at L4-L5 and sacroiliac joint, managed with interventions from pain management specialists. Through [facility], amitriptyline is through PSS - Denies persistence of uterine incontinence following exercise interventions. - Occasional allergic conjunctivitis managed with antihistamine eye drops and eczema on the hands treated with topical hydrocortisone. - Reports persistent back pain despite ongoing therapy for fibromyalgia, insomnia, and chronic headaches. Health Maintenance - Regular vitamin D supplementation discussed due to prior low levels. - Recent mammogram performed and was up-to-date as of the last report. - Colonoscopy warranted, awaiting detailed records to determine scheduling. - Follow-up blood work scheduled to evaluate various health parameters including vitamin D levels. - Ongoing management for GERD with famotidine. Qagan Tayagungin of Care: [facility] for chronic lumbar disc herniation and pain management Medications - Vitamin D supplement for deficiency. - Antihistamine eye drops for allergic conjunctivitis. - Famotidine for gastroesophageal reflux disease (GERD). - Hydrocortisone cream for eczema management. - Nortriptyline for chronic headache management and back pain related to fibromyalgia. - Lyrica for fibromyalgia. Through PCP Diagnostic results - Labs: Upcoming blood work scheduled. - Ultrasound: Revealed a submucosal uterine fibroid of 6.9 x 6.3 x 6.0 cm. - Colonoscopy: Patient advised to bring prior report to verify previous findings of hemorrhoids. Patient Instructions - Continue current medications for allergies, eczema, GERD, and fibromyalgia as directed. - Reminder to schedule and undergo the recommended upcoming blood work fasting; nothing to eat after dinner prior to the test. - Preparation to bring previous colonoscopy report at the next appointment to clarify timing and findings. - Continue exercises to manage uterine incontinence symptoms. - Follow-up with any changes to symptoms or any new concerns for re-evaluation. Follow-up 3 months Orders: Orders Complete Blood Count Auto Diff Today E55.9 - Vitamin D deficiency, unspecified, G89.29 - Other chronic pain, J30.89 - Other allergic rhinitis, K21.9 - Gastro- esophageal reflux disease without esophagitis, K64.8 - Other hemorrhoids, L30.9 - Dermatitis, unspecified, M51.26 - Other intervertebral disc displacement, lumbar region, M54.50 - Low back pain, unspecified, M79.7 - Fibromyalgia, N39.3 - Stress incontinence (female) (male), Z00.01 - Encounter for general adult medical examination with abnormal findings, Z91.09 - Other allergy status, other than to drugs and biological substances Comprehensive [place]. Panel Fast Today E55.9 - Vitamin D deficiency, unspecified, G89.29 - Other chronic pain, J30.89 - Other allergic rhinitis, K21.9 - Gastro-e sophageal reflux disease without esophagitis, K64.8 - Other hemorrhoids, L30.9 - Dermatitis, unspecified, M51.26 - Other intervertebral disc displacement, lumbar region, M54.50 - Low back pain, unspecified, M79.7 - Fibromyalgia, N39.3 - Stress incontinence (female) (male), Z00.01 - Encounter for general adult medical examination with abnormal findings, Z91.09 - Other allergy status, other than to drugs and biological substances Lipid Panel Today E55.9 - Vitamin D deficiency, unspecified, G89.29 - Other chronic pain, J30.89 - Other allergic rhinitis, K21.9 - Gastro-esophageal reflux disease without esophagitis, K64.8 - Other hemorrhoids, L30.9 - Dermatitis, unspecified, M51.26 - Other intervertebral disc displacement, lumbar region, M54.50 - Low back pain, unspecified, M79.7 - Fibromyalgia, N39.3 - Stress incontinence (female) (male), Z00.01 - Encounter for general adult medical examination with abnormal findings, Z91.09 - Other allergy status, other than to drugs and biological substances Vitamin D 25-OH (D2 and D3) Today E55.9 - Vitamin D deficiency, unspecified, G89.29 - Other chronic pain, J30.89 - Other allergic rhinitis, K21.9 - Gastro- esophageal reflux disease without esophagitis, K64.8 - Other hemorrhoids, L30.9 - Dermatitis, unspecified, M51.26 - Other intervertebral disc displacement, lumbar region, M54.50 - Low back pain, unspecified, M79.7 - Fibromyalgia, N39.3 - Stress incontinence (female) (male), Z00.01 - Encounter for general adult medical examination with abnormal findings, Z91.09 - Other allergy status, other than to drugs and biological substances ECG 3 day holter monitor Today R00.2 - Palpitations Medications: Refilled pregabalin 75 mg PO BID 90 days 180 caps 0RF
== END 2024-07-05 10:23 | disposition home or self-care (01) ==
LOC: HO.HMCC 09:53
PROVIDERS: PCP Internal Medicine; Visit Provider Internal Medicine
DX: Z00.01 Encounter for general adult medical examination with abnormal findings (principal); R00.2 Palpitations; K64.8 Other hemorrhoids; N39.3 Stress incontinence (female) (male); M79.7 Fibromyalgia; M51.26 Other intervertebral disc displacement, lumbar region; K21.9 Gastro-esophageal reflux disease without esophagitis; E55.9 Vitamin D deficiency, unspecified; J30.89 Other allergic rhinitis; Z91.09 Other allergy status, other than to drugs and biological substances; M54.50 Low back pain, unspecified; G89.29 Other chronic pain

== ENCOUNTER → 2024-07-05 09:52 | Outpatient (BNVA) | payer OTHER, SELFPAY | PROVIDERS: PCP Internal Medicine; Visit Provider Internal Medicine | DX: Z00.01 Encounter for general adult medical examination with abnormal findings (principal); R00.2 Palpitations; K64.8 Other hemorrhoids; N39.3 Stress incontinence (female) (male); M79.7 Fibromyalgia; M51.26 Other intervertebral disc displacement, lumbar region; K21.9 Gastro-esophageal reflux disease without esophagitis; E55.9 Vitamin D deficiency, unspecified; J30.89 Other allergic rhinitis; G89.29 Other chronic pain; L20.84 Intrinsic (allergic) eczema; Z79.899 Other long term (current) drug therapy; Z91.09 Other allergy status, other than to drugs and biological substances | CPT/HCPCS: 96127 ==

== ENCOUNTER 2024-07-22 11:08 | Outpatient (REF) | payer OTHER, SELFPAY ==
[2024-07-22 12:28] LABS: MANUAL DIFF FLAG NO
[2024-07-22 12:52] LABS: Basophils Percent Auto 0.4 % (0-2); Eosinophils Percent Auto 0.4 % (0-4); Hematocrit 38.7 % (37.0-47.0); Hemoglobin 12.7 g/dl (12.0-16.0); Imm Gran Abs Auto 0.01 X10*3/uL (0.00-0.03); Imm Gran Pct Auto 0.2 % (0.0-0.4); Lymphocytes Absolute Auto 1.3 X10*3/uL (1.2-4.9); Lymphocytes Percent Auto 23.7 % (20-40); Mean Corpuscular HGB Conc 32.8 g/dl (31.0-35.0); Mean Corpuscular Hemoglobin 27.7 pg (27.0-33.0); Mean Corpuscular Volume 84.5 fL (80.0-98.0); Mean Platelet Volume 11.2 fL (9.4-12.3); Monocytes Absolute Auto 0.9 X10*3/uL (0.1-1.2); Monocytes Percent Auto 16.6 % (2-11); Neutrophils Absolute Auto 3.2 x10*3/uL (2.0-8.3); Neutrophils Percent Auto 58.7 % (45-73); Platelet Count 248 X10*3/uL (160-400); Red Blood Count 4.58 X10*6/uL (4.20-5.50); Red Cell Distribution Width 13.1 % (11.0-16.0); White Blood Count 5.5 X10*3/uL (4.8-10.8)
[2024-07-22 13:32] LABS: Alanine Aminotransferase 14 U/L (0-31); Albumin Level 4.3 g/dL (3.5-5.0); Alkaline Phosphatase 70 U/L (39-117); Anion Gap 12 (12-20); Aspartate Amino Transferase 20 U/L (5-31); Bilirubin Total 0.3 mg/dL (0.0-1.0); Blood Urea Nitrogen 10 mg/dL (9-16); Calcium 9.3 mg/dL (8.4-10.2); Carbon Dioxide 24 mmol/L (22-29); Chloride 107 mmol/L (96-108); Cholesterol 236 mg/dL (<200); Estimated Glomerular Filt Rate > 60; Glucose Fasting 72 mg/dL (60-99); HDL Cholesterol 79 mg/dL (>40); LDL Cholesterol Calculated 138 mg/dL (<100); Potassium 4.6 mmol/L (3.3-5.1); Sodium 138 mmol/L (135-145); Total Protein 7.5 g/dL (6.5-8.0); Triglycerides 96 mg/dL (<150)
[2024-07-22 14:03] LABS: HCG Quantitative < 2 mIU/mL; TSH reflex Free T4 2.11 uIU/mL (0.32-4.0)
[2024-07-22 16:42] LABS: CT PCR NOT DETECTED (Not Detect.); NG PCR NOT DETECTED (Not Detect.)
[2024-07-23 06:58] LABS: Follicle Stimulating Hormone 6.5 mIU/mL; Lutenizing Hormone 8.8 mIU/mL
[2024-07-28 13:49] LABS: Vitamin D 25-OH, D2 <4 ng/mL; Vitamin D 25-OH, D3 25 ng/mL; Vitamin D 25-OH, Total 25 ng/mL (30-100)
== END 2024-07-22 11:09 | disposition home or self-care (01) ==
LOC: HO.LAB 11:08
PROVIDERS: PCP Internal Medicine; Visit Provider Obstetrics & Gynecology
DX: Z00.01 Encounter for general adult medical examination with abnormal findings (principal); N93.9 Abnormal uterine and vaginal bleeding, unspecified; L30.9 Dermatitis, unspecified; G89.29 Other chronic pain; Z91.09 Other allergy status, other than to drugs and biological substances; J30.89 Other allergic rhinitis; E55.9 Vitamin D deficiency, unspecified; K21.9 Gastro-esophageal reflux disease without esophagitis; M51.26 Other intervertebral disc displacement, lumbar region; M79.7 Fibromyalgia; N39.3 Stress incontinence (female) (male); K64.8 Other hemorrhoids; Z13.6 Encounter for screening for cardiovascular disorders
CPT/HCPCS: 36415; 80053; 80061; 82306; 83001; 83002; 84443; 84702; 85025; 87491; 87591

== ENCOUNTER 2024-07-22 11:08 | Outpatient (AMB) | payer OTHER, SELFPAY ==
--- NOTE | 2024-07-22 11:30 | MHC.OFFVIS ---
Vital Signs 07/22/24 11:37 Height 5 ft 2 in Weight 122 lb BMI 22.3 BP 122/74 Intake Visit Reasons: AUB Special Service Officer Required: No Information Interpreted: non-clinical & clinical Senior Software Engineering Manager: Senior Software Engineering Manager Present (Kimberly MIJARES) Accompanied by: Friend Allergies prednisone Adverse Reaction (Mild, Verified 07/22/24 11:38) rectal bleeding cats/dogs Allergy (Unknown, Uncoded 07/22/24 11:38) itch Numerous food and environmenta Allergy (Unknown, Uncoded 07/22/24 11:38) hive HPI Comments Details: The patient is presenting referred from Niya Dorsey CNM regarding abnormal uterine bleeding associated with pelvic cramping , passage of blood clots and pelvic pressure . 05/14 pelvic ultrasound showed the following: Anteverted uterus is 13.8 cm length. Normal myometrium. No endometrial lesion with the endometrium largely obscured. There is a fundal myometrial/submucosal 6.9 x 6.3 x 6.0 cm leiomyoma, previously measuring 5.6 x 5.5 x 4.7 cm. Right ovary 2.0 x 2.0 x 1.8 cm. Left ovary 2.4 x 1.5 x 1.2 cm. Normal color Doppler of both ovaries. No free fluid. Last co testing was in 02/06 3- Last mammogram was in 06/14 [facility] Medical History Ectopic Multiple allergies Herniated lumbar disc without myelopathy GERD (gastroesophageal reflux disease) Fibromyalgia Surgical History H/O tubal ligation Family History Maternal Aunt Breast cancer Mother Fibromyalgia Paternal Grandfather Colon cancer Social History Housing: House Patient Tobacco Use Status: Never used Tobacco e-Cigarette/Vaping Use: Never Used Second Hand Smoke Exposure: No service: No Current occupational status: disabled Cognitive needs: No Hearing needs: No Vision needs: No Female Reproductive History Menstrual Age of Menarche: 13 Review of Systems Const All systems reviewed & are unremarkable except as noted in HPI and below Card Reports as per HPI Resp Reports as per HPI GI Reports as per HPI and Reports no additional complaints Reports as per [facility] Physical Exam Vital Signs: Last Vital Signs BP 122/74 07/22/24 11:37 BMI result Body Mass Index 22.3 Const General: cooperative, healthy appearing and comfortable Chest Chest palpation & inspection: normal inspection of the chest and normal palpation of entire chest wall Breast/axilla inspection: normal inspection of the breasts and normal inspection of the axillae Breast/axilla palpation: normal palpation of the breasts, normal palpation of the axillae and no axillary lymphadenopathy Resp Effort & Inspection: normal respiratory effort Auscultation: clear to auscultation bilaterally Percussion: percussion normal Cardio Palpation: normal PMI Rate: regular rate Rhythm: regular rhythm Heart sounds: no murmurs and no rubs Peripheral pulses: Peripheral pulses 2+ throughout GI Inspection: Yes normal to inspection Palpation (GI): Soft to palpation, nontender, no guarding, not rigid and No hepatosplenomegaly present Percussion: Yes normal to percussion Auscultation: normal bowel sounds Rectal Exam - Female: deferred General: Yes bladder normal to palpation External Female Exam: No lesion Speculum Exam - Vagina: normal appearance of the vagina, normal palpation, normal vaginal discharge and not erythematous Speculum Exam - Cervix: normal appearance of the cervix and normal palpation Bimanual exam- vagina & uterus: normal bimanual exam, normal palpation, uterine size normal, bladder normal to palpation, consistency normal and normal palpation Bimanual Exam- Adnexa, other: normal adnexae, no masses and no tenderness Assessment & Plan Assessment & Plan (1) Abnormal uterine bleeding (AUB): Code(s): N93.9 - Abnormal uterine and vaginal bleeding, unspecified Category: Medical Plan: GC and chlamydia taken CBC, TSH, HCG, FSH/LH ordered. Discussed with the patient the different causes of abnormal bleeding including thyroid disorders, uterine and ovarian pathology, endometrial hyperplasia, carcinoma and other potential causes. Discussed with the patient the work up including CBC (to r/o anemia), TSH, FSH/LH pelvic Ultrasound, endometrial biopsy to r/o endometrial pathology. All questions answered and the patient verbalized understanding. Instructed the patient to schedule an appointment for an endometrial biopsy in 2 weeks. (2) Uterine fibroid: Comment: Increased in size up to 6.9 cm. Bulk symptoms Code(s): D25.9 - Leiomyoma of uterus, unspecified Category: Medical Qualifiers: Uterine leiomyoma location: unspecified location Qualified Code(s): D25.9 - Leiomyoma of uterus, unspecified Plan: Discussed with the patient the findings on pelvic ultrasound & the risk of myosarcoma; in addition reviewed with the patient that malignancy and pre malignancy cannot be ruled out without hysterectomy for pathological evaluation ; furthermore, explained to the patient the limitation of pelvic ultrasound and endometrial biopsy in the setting. Discussed with the patient the typical symptoms that are caused by myomas including but not limited to pelvic pain, pressure symptoms, abnormal uterine bleeding. In addition discussed with the patient options of treatment for myomas including: Serial ultrasounds periodically to follow-up on the size of the myoma while targeting the treatment against fibroids related symptoms ( control pills, Mirena IUD, progesterone treatment, GnRH agonist/antagonist, uterine artery embolization or endometrial ablation) versus surgical treatment including hysterectomy and or myomectomy. All pros and cons, risks and benefits of all options were discussed with the patient. The patient understands that delay in surgical treatment in case of myosarcoma can affect her prognosis, after further discussion, the patient decided to think about it and get back to us next visit Orders: Orders TSH reflex Free T4 Today N93.9 - Abnormal uterine and vaginal bleeding, unspecified Complete Blood Count no Diff Today N93.9 - Abnormal uterine and vaginal bleeding, unspecified Lutenizing Hormone Today N93.9 - Abnormal uterine and vaginal bleeding, unspecified HCG Quantitative Today N93.9 - Abnormal uterine and vaginal bleeding, unspecified Follicle Stimulating Hormone Today N93.9 - Abnormal uterine and vaginal bleeding, unspecified Coding Level of Care Code Est Pt Level 3 (72512) Diagnoses Abnormal uterine bleeding (AUB) N93.9 Uterine leiomyoma, unspecified location D25.9 Uterine leiomyoma location: unspecified location
[2024-07-22 11:37] VITALS: BP 122/74; BMI 22.3
== END 2024-07-22 11:55 | disposition home or self-care (01) ==
LOC: HO.HWS 11:09
PROVIDERS: PCP Internal Medicine; Visit Provider Obstetrics & Gynecology
DX: N93.9 Abnormal uterine and vaginal bleeding, unspecified (principal); D25.9 Leiomyoma of uterus, unspecified
CPT/HCPCS: 99213

== ENCOUNTER → 2024-08-01 09:27 | Outpatient (REF) | payer OTHER, SELFPAY | LOC: HO.CARD 09:27 | PROVIDERS: PCP Internal Medicine; Visit Provider Internal Medicine | DX: R00.2 Palpitations (principal) | CPT/HCPCS: 93242 ==

== ENCOUNTER → 2024-08-01 09:31 | Outpatient (BNV) | payer OTHER, SELFPAY | PROVIDERS: PCP Internal Medicine; Visit Provider Internal Medicine | DX: I47.10 Supraventricular tachycardia, unspecified (principal) | CPT/HCPCS: 93244 ==

== ENCOUNTER 2024-08-24 08:29 | Outpatient (REF) | payer OTHER, SELFPAY | END 2024-08-24 08:30 | disposition home or self-care (01) | LOC: HO.LNP 08:29 | PROVIDERS: PCP Internal Medicine; Visit Provider Obstetrics & Gynecology | DX: N93.9 Abnormal uterine and vaginal bleeding, unspecified (principal) | CPT/HCPCS: 58100; 81025; 88305 ==

== ENCOUNTER 2024-08-24 08:29 | Outpatient (AMB) | payer OTHER, SELFPAY ==
--- NOTE | 2024-08-24 08:40 | MHC.OFFVIS ---
Vital Signs 08/24/24 08:55 Height 5 ft 2 in Weight 122 lb BMI 22.3 Intake Visit Reasons: EMB Referral And Information Aide Required: No Information Interpreted: non-clinical & clinical Starch Dumper: Starch Dumper Present (Kimberly MIJARES) Accompanied by: Sister Allergies prednisone Adverse Reaction (Mild, Verified 08/24/24 08:56) rectal bleeding cats/dogs Allergy (Unknown, Uncoded 08/24/24 08:56) itch Numerous food and environmenta Allergy (Unknown, Uncoded 08/24/24 08:56) hive HPI Comments Details: [facility]ing [facility] Medical History Ectopic Multiple allergies Herniated lumbar disc without myelopathy GERD (gastroesophageal reflux disease) Fibromyalgia Surgical History H/O tubal ligation Family History Maternal Aunt Breast cancer Mother Fibromyalgia Paternal Grandfather Colon cancer Social History Housing: House Patient Tobacco Use Status: Never used Tobacco e-Cigarette/Vaping Use: Never Used Second Hand Smoke Exposure: No service: No Current occupational status: disabled Cognitive needs: No Hearing needs: No Vision needs: No Female Reproductive History Menstrual Age of Menarche: 13 Review of Systems Const All systems reviewed & are unremarkable except as noted in HPI and below Reports as per HPI and Reports no additional complaints GI Reports no additional complaints Reports no additional complaints Physical Exam Vital Signs: BMI result Body Mass Index 22.3 Office Procedures Endometrial Biopsy Details: The patient was counseled regarding the indication and benefits of endometrial sampling to rule out endometrial pathology including not limited to endometrial hyperplasia or endometrial cancer and others; The alternatives (Either do nothing vs. hysteroscopy D&C) & the risks were discussed with the patient including but not limited: pain, uterine perforation, bleeding, infection, possible injury to bladder, bowel, ureter, possible need for blood transfusion with all its possible risks. The patient verbalized understanding all questions answered and signed consent. Urine test done in the office was negative The patient was placed into the dorsal lithotomy position; a speculum was inserted in the vagina. Using aseptic technique for the procedure, the cervix was cleansed with Betadine. The anterior lip of the cervix was grasped with a single tooth tenaculum. The uterus was sounded to 7 cm with a 4 mm Pipelle was used. Tissues samples were obtained and placed in formalin, in a patient labeled container and sent to the pathology department. At the end of the procedure, there was minimal bleeding noted The patient tolerated the procedure well and was discharged in good condition with the following instructions: Nothing in the vagina until the bleeding stops. No sex until the bleeding stops, to call if any of the following occurs: fever (>100.4), flu-like symptoms, abdominal pain, heavy bleeding, four smelling vaginal discharge. The patient was instructed to schedule a Follow up appointment in 2 weeks to discuss pathology results of the biopsy and treatment options. This note was generated with a voice recognition program. Some errors may have been overlooked during the review of this note. Sometimes these errors may affect the content or meaning of a given sentence. [id number] Biopsy Results AMB Test Urine AMB Test Urine Negative Last Edit by Kimberly Danielle CMA on 08/24/24 08:55 Results Reviewed Results Reviewed: Laboratory Last Values Tst Clinic Negative 08/24/24 08:55 Assessment & Plan Assessment & Plan (1) Abnormal uterine bleeding (AUB): Code(s): N93.9 - Abnormal uterine and vaginal bleeding, unspecified Category: Medical Plan: emb done, see procedure note Orders: Orders AMB Endometrial Biopsy Today N93.9 - Abnormal uterine and vaginal bleeding, unspecified AMB HCG Urine Test Today Z32.02 - Encounter for test, result negative Coding Level of Care Code Procedure Only Diagnoses Abnormal uterine bleeding (AUB) N93.9 CPT Codes Endometrial Biopsy - CPT: 57656-Eltxrdyrwez Biopsy ([id number])
[2024-08-24 08:55] VITALS: BMI 22.3
== END 2024-08-24 10:19 | disposition home or self-care (01) ==
LOC: HO.HWS 08:30
PROVIDERS: PCP Internal Medicine; Visit Provider Obstetrics & Gynecology
DX: N93.9 Abnormal uterine and vaginal bleeding, unspecified (principal); Z32.02 Encounter for pregnancy test, result negative
CPT/HCPCS: 58100

== ENCOUNTER 2024-08-29 09:26 | Outpatient (AMB) | payer OTHER, SELFPAY ==
--- NOTE | 2024-08-29 09:29 | A.OFFVIS_ITS ---
Vital Signs 08/29/24 09:30 Height 5 ft 2 in Weight 122 lb BMI 22.3 BP 110/60 Intake Visit Reasons: pre op Tire Debeader Required: No Information Interpreted: non-clinical & clinical Activities Officer: Activities Officer Present (Kimberly MIJARES) Accompanied by: Sister Allergies prednisone Adverse Reaction (Mild, Verified 08/24/24 08:56) rectal bleeding cats/dogs Allergy (Unknown, Uncoded 08/29/24 09:34) itch Numerous food and environmenta Allergy (Unknown, Uncoded 08/24/24 08:56) hive Is last menstrual period known: Yes Last menstrual period: 02/16/20 Post menopausal: No Patient : No Do you need a note to return to daycare/school/sports/work: Yes (for surgery on thursday) HPI Comments Details: The patient is presenting after endometrial biopsy. The patient has no complaints, no vaginal bleeding, no feverishness chills or abdominal pain. The endometrial biopsy pathology report showed the following: Benign late secretory endometrium with ectatic stromal vessels, fragments of benign endometrial polyp, and benign endocervical glandular and squamous epithelium; no atypia or carcinoma The following workup was done.: H&H= 12.7/38.7 TSH, hCG, GC and chlamydia were negative. FSH/LH 6.5/8.8 Co testing was done in 02/09 was negative. Mammogram was BI-RADS 2 in 06/14 Pelvic ultrasound showed the following: Transvaginal scanning performed. Anteverted uterus is 13.8 cm length. Normal myometrium. No endometrial lesion with the endometrium largely obscured. There is a fundal myometrial/submucosal 6.9 x 6.3 x 6.0 cm leiomyoma, previously measuring 5.6 x 5.5 x 4.7 cm. Right ovary 2.0 x 2.0 x 1.8 cm. Left ovary 2.4 x 1.5 x 1.2 cm. Normal color Doppler of both ovaries. No free fluid. [facility] Medical History Ectopic Multiple allergies Herniated lumbar disc without myelopathy GERD (gastroesophageal reflux disease) Fibromyalgia Surgical History H/O tubal ligation Family History Maternal Aunt Breast cancer Mother Fibromyalgia Paternal Grandfather Colon cancer Social History Housing: House Patient Tobacco Use Status: Never used Tobacco e-Cigarette/Vaping Use: Never Used Second Hand Smoke Exposure: No service: No Current occupational status: disabled Cognitive needs: No Hearing needs: No Vision needs: No Female Reproductive History Menstrual Age of Menarche: 13 Date of last menstrual period: 02/16/20 Total pregnancies: 2 Full term: 2 Review of Systems Card Reports as per HPI and Reports no additional complaints Resp Reports as per HPI and Reports no additional complaints GI Reports as per HPI and Reports no additional complaints Reports as per HPI Physical Exam Vital Signs: Last Vital Signs BP 110/60 08/29/24 09:30 BMI result Body Mass Index 22.3 Assessment & Plan Assessment & Plan (1) Abnormal uterine bleeding (AUB): Comment: Endometrial polyp on EMB pathology Uterine myoma Code(s): N93.9 - Abnormal uterine and vaginal bleeding, unspecified Category: Medical Plan: Discussed with the patient the findings on pelvic ultrasound & the risk of myosarcoma; in addition reviewed with the patient that malignancy and pre malignancy cannot be ruled out without hysterectomy for pathological evaluation ; furthermore, explained to the patient the limitation of pelvic ultrasound and endometrial biopsy in the setting. Discussed with the patient the results of the biopsy showing fragments of benign endometrial polyp Explained to the patient the typical symptoms that are caused by myomas including but not limited to pelvic pain, pressure symptoms, abnormal uterine bleeding. In addition discussed with the patient options of treatment for myomas including: Serial ultrasounds periodically to follow-up on the size of the myoma while targeting the treatment against fibroids related symptoms ( control pills, Mirena IUD, progesterone treatment, GnRH agonist/antagonist, uterine artery embolization or endometrial ablation) versus surgical treatment including hysterectomy . All pros and cons, risks and benefits of all options were discussed with the patient. The patient would like to proceed with definitive surgical management. Discussed with the patient the different types of hysterectomies including, vaginal, laparoscopic assisted vaginal, robotic assisted laparoscopic,& abdominal with BSO. All pros, cons, r/b of each approach were discussed the patient including evidence that morbidity is less and recovery is shorter with minimally invasive approaches to hysterectomy. Discussed with the patient the lack of availability of the robot DaVAcrolinxi robot and/or minimally invasive beader tender specialist at [facility]. Will refer to [facility] minimally invasive steam pressure chamber operator surgery. Instructed the patient to call our office back in case a referral appointment is not scheduled, missed or canceled so that we will assist on rescheduling another appointment, the patient verbalized understanding agreed with the plan. Coding Level of Care Code Est Pt Level 3 (65813) Diagnoses Abnormal uterine bleeding (AUB) N93.9
[2024-08-29 09:30] VITALS: BP 110/60; BMI 22.3
== END 2024-08-29 09:56 | disposition home or self-care (01) ==
LOC: HO.HWS 09:26
PROVIDERS: PCP Internal Medicine; Visit Provider Obstetrics & Gynecology
DX: N93.9 Abnormal uterine and vaginal bleeding, unspecified (principal)
CPT/HCPCS: 99213

== ENCOUNTER → 2024-08-29 09:26 | Outpatient (BNVA) | payer OTHER, SELFPAY | PROVIDERS: PCP Internal Medicine; Visit Provider Obstetrics & Gynecology ==

== ENCOUNTER 2024-10-05 09:13 | Outpatient (AMB) | payer OTHER, SELFPAY ==
[2024-10-05 09:14] VITALS: BP 116/74; PULSE 67; TEMP 36.9; O2SAT 99; BMI 22.2
--- NOTE | 2024-10-05 09:14 | A.OFFPC_ITS ---
Vital Signs 10/05/24 09:14 Height 5 ft 2 in Weight 121 lb 4 oz BMI 22.2 BP 116/74 Blood Pressure Location Lt brachial Position Sitting Pulse 67 Pulse Source Pulse Oximeter Temp 98.5 F Pulse Oximetry (%) 99 Oxygen Delivery Method Room Air Intake Visit Reasons: 3 months f/up Allergies prednisone Adverse Reaction (Mild, Verified 10/05/24 09:18) rectal bleeding cats/dogs Allergy (Unknown, Uncoded 08/29/24 09:34) itch Numerous food and environmenta Allergy (Unknown, Uncoded 08/24/24 08:56) hive Medication List - Last Reconciled 10/05/24 by Rodríguez Bonds MD azelastine intranasal cetirizine 10 mg PO DAILY PRN cholecalciferol (vitamin D3) 50 mcg PO DAILY famotidine 20 mg PO .qd PRN fluticasone propionate 50 mcg/actuation (Flonase Allergy Relief) 1 spray intranasal DAILY hydrocortisone 1% (Anti-Itch (hydrocortisone)) 1 appl topical BID-QID PRN ketotifen fumarate 0.025%(0.035%) ([place]) 1 drp ophthalmic (eye) BID lidocaine HCl-hydrocortison ac 3-0.5 % 1 appl SD BID 10 days nortriptyline 10 mg PO BEDTIME pregabalin 75 mg PO BID 90 days Tobacco use date assessed: 07/05/24 Dental Screening Dental Screen Date: 07/05/24 HPI 3 months f/up HPI Details History - The patient is a 49-year-old female ca me in for her three-month follow-up appointment Patient has developed uterine polyps. - A biopsy was conducted revealing the p resence of precancerous uterine polyps. - A referral to [facility] for further gynecological assessment was made, and an appointment is scheduled for October 31. - The patient has a history of fibromyal makayla and is managed with pregabalin (Lyrica). - She experiences headaches and back arlen n, managed with nortriptyline. - Reports intermittent back pain of vari able severity and frequency. - The episodes of foot swelling and pare sthesia in her feet, notably without recent episodes at the time of the visit. Which resolved on its own - Symptoms of allergies occur, exacerbat ed by high pollen levels, and managed with sertraline and Flonase. Medical History: - Precancerous uterine polyps - Fibromyalgia - Headaches/migraines - Gastroesophageal reflux disease (GERD) - Allergic rhinitis Medications: - Pregabalin (Lyrica) 75 mg twice daily for fibromyalgia - Nortriptyline 10 mg at bedtime for hea daches and back pain - Flonase for allergies - Famotidine for GERD - Vitamin D supplement - Sertraline 10 mg for allergies Social History: - Footwear appears to be lacking suffici ent cushioning, potentially impacting foot pain symptoms. Diagnostic Results: - Labs: LDL 138 mg/dL, liver enzymes and kidney functions within normal limits (July). Problem List - Precancerous uterine polyps - Fibromyalgia - Headaches/migraines - Gastroesophageal reflux disease (GERD) - Allergic rhinitis Patient Instructions - Wear a mask during high pollen periods to help manage allergy symptoms. - Ensure footwear has adequate cushionin g to prevent foot pains. - Continue current medications as prescr ibed, with attention to timely refilling. - Monitor any headaches and back pain, a nd adjust activities as necessary. Review of Systems - General: No fever no chills - Neurological: no dizziness - Ear nose throat: No sore throat no hearing difficulty no ear pain - Cardiovascular: No syncope, no chest pain, no palpitations - Gastrointestinal: No nausea vomiting or diarrhea - Endocrine: No polyuria polydipsia no heat intolerance - Genitourinary: No dysuria , no blood in urine Physical Exam General: No acute distress HEENT: No acute findings Neck: Supple Respiratory system: Able to talk in full sentences, no audible wheeze Cardiovascular: S1-S2 regular in rate and rhythm Gastrointestinal: No pain Extremities: No new findings, but patient reports occasional swelling and pain in feet with paresthesia 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 PROCESSOR: Alert awake oriented x3 motor sensory intact Skin: Normal turgor [facility] Medical History Ectopic Multiple allergies Herniated lumbar disc without myelopathy GERD (gastroesophageal reflux disease) Fibromyalgia Surgical History H/O tubal ligation Family History Maternal Aunt Breast cancer Mother Fibromyalgia Paternal Grandfather Colon cancer Social History Housing: House Patient Tobacco Use Status: Never used Tobacco e-Cigarette/Vaping Use: Never Used Second Hand Smoke Exposure: No service: No Current occupational status: disabled Cognitive needs: No Hearing needs: No Vision needs: No Female Reproductive History Menstrual Age of Menarche: 13 Questionnaire Thrive Questionnaire Date Thrive assessed: 07/05/24 I am a: Patient What is your living situation today?: I have a steady place to live Within the past 12 months, did the food you bought not last and you didn't have the money to get more?: Often true Within the past 12 months, did you worry whether your food would run out before you got money to buy more?: Never true Do you have trouble paying for medicines?: No Do you have trouble getting transportation to medical appointments?: No Do you have trouble paying your heating and electricity bill?: No Do you have trouble taking care of your child, family member or friend?: No Do you have trouble with day-to-day activities such as bathing, preparing meals, shopping, managing finances, etc.?: No Are you currently unemployed and looking for a job?: I choose not to answer this question Are you interested in more education?: I choose not to answer this question Please select the resources that you would like help with: None Currently or been in a relationship where the following occur: No concerns reported THRIVE Score: 1 BEATRIZ-7 AMB Questionnaire BEATRIZ-7 Date BEATRIZ - 7 assessed: 07/05/24 Source: Developed by Drs. Pino Lynn, Radha Uribe, Randy Agosto and colleagues, with an educational martita from [employer]. Physical exam (Primary Care) Vital Signs: Last Vital Signs Temp 98.5 F 10/05/24 09:14 Pulse 67 10/05/24 09:14 BP 116/74 10/05/24 09:14 Pulse Ox 99 10/05/24 09:14 Oxygen Delivery Method Room Air 10/05/24 09:14 BMI result Body Mass Index 22.2 Tobacco/Smoking Status: Tobacco use Status Tobacco use date assessed 07/05/24 10/05/24 09:21 Patient Tobacco Use Status Never used Tobacco 10/05/24 09:21 e-Cigarette/Vaping Use Never Used 10/05/24 09:21 Thrive Assessment: Date of Thrive Assessment Date Thrive assessed 07/05/24 10/05/24 09:21 Currently or been in a relationship where the following occur: No concerns reported Coding Level of Care Code Est Pt Level 4 (02399) Diagnoses Other hemorrhoids K64.8 Hemorrhoid type: other Stress incontinence in female N39.3 Fibromyalgia M79.7 Herniated nucleus pulposus, L4-5 left M51.26 Gastroesophageal reflux disease without esophagitis K21.9 Esophagitis presence: without esophagitis Vitamin D deficiency E55.9 Allergic rhinitis due to other allergic trigger, unspecified seasonality Allergic rhinitis trigger: other Allergic rhinitis seasonality: unspecified Environmental allergies Z91.09 Chronic bilateral low back pain without sciatica M54.50; G89.29 Back pain location: low back pain Back pain laterality: bilateral Sciatica presence: without sciatica Assessment & Plan Assessment & Plan (1) Hemorrhoids: Code(s): K64.9 - Unspecified hemorrhoids Category: Medical Qualifiers: Hemorrhoid type: other Qualified Code(s): K64.8 - Other hemorrhoids (2) Stress incontinence in female: Code(s): N39.3 - Stress incontinence (female) (male) Category: Medical (3) Fibromyalgia: Code(s): M79.7 - Fibromyalgia Category: Medical (4) Herniated nucleus pulposus, L4-5 left: Code(s): M51.26 - Other intervertebral disc displacement, lumbar region Category: Medical (5) Acid reflux: Code(s): K21.9 - Gastro-esophageal reflux disease without esophagitis Category: Medical Qualifiers: Esophagitis presence: without esophagitis Qualified Code(s): K21.9 - Gastro-esophageal reflux disease without esophagitis (6) Vitamin D deficiency: Code(s): E55.9 - Vitamin D deficiency, unspecified Category: Medical (7) Allergic rhinitis: Code(s): J30.9 - Allergic rhinitis, unspecified Category: Medical Qualifiers: Allergic rhinitis trigger: other Allergic rhinitis seasonality: unspecified Qualified Code(s): - Other allergic rhinitis (8) Environmental allergies: Code(s): Z91.09 - Other allergy status, other than to drugs and biological substances Category: Medical (9) Chronic back pain: Code(s): M54.9 - Dorsalgia, unspecified; G89.29 - Other chronic pain Category: Medical Qualifiers: Back pain location: low back pain Back pain laterality: bilateral Sciatica presence: without sciatica Qualified Code(s): M54.50 - Low back pain, unspecified; G89.29 - Other chronic pain Plan History - The patient is a 49-year-old female came in for her three-month follow-up appointment Patient has developed uterine polyps. - A biopsy was conducted revealing the presence of precancerous uterine polyps. - A referral to [facility] for further gynecological assessment was made, and an appointment is scheduled for October 31. - The patient has a history of fibromyalgia and is managed with pregabalin (Lyrica). - She experiences headaches and back pain, managed with nortriptyline. - Reports intermittent back pain of variable severity and frequency. - The episodes of foot swelling and paresthesia in her feet, notably without recent episodes at the time of the visit. Which resolved on its own - Symptoms of allergies occur, exacerbated by high pollen levels, and managed with sertraline and Flonase. Medical History: - Precancerous uterine polyps - Fibromyalgia - Headaches/migraines - Gastroesophageal reflux disease (GERD) - Allergic rhinitis Medications: - Pregabalin (Lyrica) 75 mg twice daily for fibromyalgia - Nortriptyline 10 mg at bedtime for headaches and back pain - Flonase for allergies - Famotidine for GERD - Vitamin D supplement - Sertraline 10 mg for allergies Social History: - Footwear appears to be lacking sufficient cushioning, potentially impacting foot pain symptoms. Diagnostic Results: - Labs: LDL 138 mg/dL, liver enzymes and kidney functions within normal limits (July). Problem List - Precancerous uterine polyps - Fibromyalgia - Headaches/migraines - Gastroesophageal reflux disease (GERD) - Allergic rhinitis - hemorrhoids stable - stress incontinence stable Patient Instructions - Wear a mask during high pollen periods to help manage allergy symptoms. - Ensure footwear has adequate cushioning to prevent foot pains. - Continue current medications as prescribed, with attention to timely refilling. - Monitor any headaches and back pain, and adjust activities as necessary. Medications: Refilled pregabalin 75 mg PO BID 180 caps 0RF 90 days
== END 2024-10-05 09:31 | disposition home or self-care (01) ==
LOC: HO.HMCC 09:13
PROVIDERS: PCP Internal Medicine; Visit Provider Internal Medicine
DX: K64.8 Other hemorrhoids (principal); N39.3 Stress incontinence (female) (male); M79.7 Fibromyalgia; M51.26 Other intervertebral disc displacement, lumbar region; K21.9 Gastro-esophageal reflux disease without esophagitis; E55.9 Vitamin D deficiency, unspecified; J30.89 Other allergic rhinitis; Z91.09 Other allergy status, other than to drugs and biological substances; M54.50 Low back pain, unspecified; G89.29 Other chronic pain

== ENCOUNTER → 2024-10-05 09:13 | Outpatient (BNVA) | payer OTHER, SELFPAY | PROVIDERS: PCP Internal Medicine; Visit Provider Internal Medicine ==

== ENCOUNTER 2025-02-03 10:48 | Outpatient (AMB) | payer OTHER, SELFPAY ==
--- NOTE | 2025-02-03 10:52 | A.OFFPC_ITS ---
Vital Signs 02/03/25 10:53 Height 5 ft 2 in Weight 113 lb BMI 20.7 BP 110/72 Blood Pressure Location Lt brachial Position Sitting Pulse 98 Pulse Source Pulse Oximeter Pulse Oximetry (%) 98 Intake Visit Reasons: 3 months f/up RE Allergies prednisone Adverse Reaction (Mild, Verified 02/03/25 10:54) rectal bleeding cats/dogs Allergy (Unknown, Uncoded 08/29/24 09:34) itch Numerous food and environmenta Allergy (Unknown, Uncoded 08/24/24 08:56) hive Medication List - Last Reconciled 02/03/25 by Rodríguez Bonds MD azelastine intranasal cetirizine 10 mg PO DAILY PRN cholecalciferol (vitamin D3) 50 mcg PO DAILY famotidine 20 mg PO .qd PRN hydrocortisone 1% (Anti-Itch (hydrocortisone)) 1 appl topical BID-QID PRN ketotifen fumarate 0.025%(0.035%) ([place]) 1 drp ophthalmic (eye) BID lidocaine HCl-hydrocortison ac 3-0.5 % 1 appl [place] BID 10 days nortriptyline 10 mg PO BEDTIME pregabalin 75 mg PO BID 90 days Tobacco use date assessed: 07/05/24 Dental Screening Dental Screen Date: 07/05/24 HPI 3 months f/up RE HPI Details History of Present Illness The patient is a 49-year-old female presenting with the need for medication refills. Fibromyalgia: - The patient has a history of fibromyal makayla managed with Lyrica (Pregabalin) 75 mg BID. Chronic Back Pain: - Chronic back pain is managed in conjun ction with a back specialist, who over sees the prescription of Lyrica. Allergies/Allergic Rhinitis: - The patient uses Cetirizine for allerg ic rhinitis. Gastroesophageal Reflux Disease (GERD): - Chronic GERD managed with Famotidine 2 0 mg. Stress Incontinence: - Patient reports having undergone a hys terectomy and sling procedure on the third of the month for stress incontinence management. Multiple Joint Arthritis: - Managed with Lyrica, . Diagnostic Results: - Labs: - Complete Blood Count (CBC) per formed in July was within normal limits. - Metabolic profile showed slightly low vitamin D but with improvement on supplements. Problem List - Fibromyalgia - Chronic Back Pain - Allergic Rhinitis - Gastroesophageal Reflux Disease (GERD) - Stress Incontinence - Multiple Joint Arthritis Plan - Continue Lyrica 75 mg BID and Nortript yline 10 mg [prescribed by the back specialist] at bedtime for management of fibromyalgia and chronic pain. - Famotidine 20 mg [id number] for chronic GERD management. - Patient will continue with vitamin D s upplements due to previously low levels. - Allergic rhinitis is currently managed with [id number] Cetirizine. - Recent hysterectomy and sling procedur e for stress incontinence were noted, with reported improvement in condition. Follow-up 3 months Review of Systems - General: No fever no chills - Neurological: No headaches no dizziness - Ear nose throat: No sore throat no hearing difficulty no ear pain - Cardiovascular: No syncope, no chest pain, no palpitations - Gastrointestinal: No nausea vomiting or diarrhea Physical Exam - General: No acute distress - HEENT: No acute findings - Neck: Supple - Respiratory system: Able to talk in f ull sentences, no audible wheeze - Cardiovascular: S1-S2 regular in rate and rhythm - Extremities: No new findings - PRODUCTION CONTROL TECHNOLOGIST: Alert awake oriented x3 motor in tact - Skin: Normal turgor PFSH Medical History Ectopic Multiple allergies Herniated lumbar disc without myelopathy GERD (gastroesophageal reflux disease) Fibromyalgia Surgical History S/P NABILA (total abdominal hysterectomy) H/O tubal ligation Family History Maternal Aunt Breast cancer Mother Fibromyalgia Paternal Grandfather Colon cancer Social History Housing: House Patient Tobacco Use Status: Never used Tobacco e-Cigarette/Vaping Use: Never Used Second Hand Smoke Exposure: No service: No Current occupational status: disabled Cognitive needs: No Hearing needs: No Vision needs: No Female Reproductive History Menstrual Age of Menarche: 13 Questionnaire Thrive Questionnaire Date Thrive assessed: 07/05/24 I am a: Patient What is your living situation today?: I have a steady place to live Within the past 12 months, did the food you bought not last and you didn't have the money to get more?: Often true Within the past 12 months, did you worry whether your food would run out before you got money to buy more?: Never true Do you have trouble paying for medicines?: No Do you have trouble getting transportation to medical appointments?: No Do you have trouble paying your heating and electricity bill?: No Do you have trouble taking care of your child, family member or friend?: No Do you have trouble with day-to-day activities such as bathing, preparing meals, shopping, managing finances, etc.?: No Are you currently unemployed and looking for a job?: I choose not to answer this question Are you interested in more education?: I choose not to answer this question Please select the resources that you would like help with: None Currently or been in a relationship where the following occur: No concerns reported THRIVE Score: 1 BEATRIZ-7 AMB Questionnaire BEATRIZ-7 Date BEATRIZ - 7 assessed: 07/05/24 Source: Developed by Drs. Pino Lynn, Radha Uribe, Randy Agosto and colleagues, with an educational martita from [employer]. Physical exam (Primary Care) Vital Signs: Last Vital Signs Pulse 98 02/03/25 10:53 BP 110/72 02/03/25 10:53 Pulse Ox 98 02/03/25 10:53 BMI result Body Mass Index 20.7 Tobacco/Smoking Status: Tobacco use Status Tobacco use date assessed 07/05/24 02/03/25 10:56 Patient Tobacco Use Status Never used Tobacco 02/03/25 10:56 e-Cigarette/Vaping Use Never Used 02/03/25 10:56 Thrive Assessment: Date of Thrive Assessment Date Thrive assessed 07/05/24 02/03/25 10:56 Currently or been in a relationship where the following occur: No concerns reported Coding Level of Care Code Est Pt Level 4 (89783) Diagnoses Fibromyalgia M79.7 Herniated nucleus pulposus, L4-5 left M51.26 Gastroesophageal reflux disease without esophagitis K21.9 Esophagitis presence: without esophagitis Vitamin D deficiency E55.9 Allergic rhinitis due to other allergic trigger, unspecified seasonality J30.89 Allergic rhinitis trigger: other Allergic rhinitis seasonality: unspecified Environmental allergies Z91.09 Chronic bilateral low back pain without sciatica M54.50; G89.29 Back pain location: low back pain Back pain laterality: bilateral Sciatica presence: without sciatica Assessment & Plan Assessment & Plan (1) Fibromyalgia: Code(s): M79.7 - Fibromyalgia Category: Medical (2) Herniated nucleus pulposus, L4-5 left: Code(s): M51.26 - Other intervertebral disc displacement, lumbar region Category: Medical (3) Acid reflux: Code(s): K21.9 - Gastro-esophageal reflux disease without esophagitis Category: Medical Qualifiers: Esophagitis presence: without esophagitis Qualified Code(s): K21.9 - Gastro-esophageal reflux disease without esophagitis (4) Vitamin D deficiency: Code(s): E55.9 - Vitamin D deficiency, unspecified Category: Medical (5) Allergic rhinitis: Code(s): J30.9 - Allergic rhinitis, unspecified Category: Medical Qualifiers: Allergic rhinitis trigger: other Allergic rhinitis seasonality: unspecified Qualified Code(s): J30.89 - Other allergic rhinitis (6) Environmental allergies: Code(s): Z91.09 - Other allergy status, other than to drugs and biological substances Category: Medical (7) Chronic back pain: Code(s): M54.9 - Dorsalgia, unspecified; G89.29 - Other chronic pain Category: Medical Qualifiers: Back pain location: low back pain Back pain laterality: bilateral Sciatica presence: without sciatica Qualified Code(s): M54.50 - Low back pain, unspecified; G89.29 - Other chronic pain Plan Fibromyalgia: - The patient has a history of fibromyalgia managed with Lyrica (Pregabalin) 75 mg BID. Chronic Back Pain: - Chronic back pain is managed in conjunction with a back specialist, who oversees the prescription of Lyrica. Allergies/Allergic Rhinitis: - The patient uses Cetirizine for allergic rhinitis. Gastroesophageal Reflux Disease (GERD): - Chronic GERD managed with Famotidine 20 mg. Stress Incontinence: - Patient reports having undergone a hysterectomy and sling procedure on the third of the month for stress incontinence management. Multiple Joint Arthritis: - Managed with Lyrica, Plan - Continue Lyrica 75 mg BID and Nortriptyline 10 mg [prescribed by the back specialist] at bedtime for management of fibromyalgia and chronic pain. - Famotidine 20 mg [id number] for chronic GERD management. - Patient will continue with vitamin D supplements due to previously low levels. - Allergic rhinitis is currently managed with [id number] Cetirizine. - Recent hysterectomy and sling procedure for stress incontinence were noted, with reported improvement in condition. Follow-up 3 months Medications: Refilled cholecalciferol (vitamin D3) 50 mcg PO DAILY 90 caps 3RF pregabalin 75 mg PO BID 180 caps 0RF 90 days
[2025-02-03 10:53] VITALS: BP 110/72; PULSE 98; O2SAT 98; BMI 20.7
--- OUTSIDE RECORDS SUMMARY | 2025-02-03 13:20 | XMS_ITS | Encounter Summary ---
Author Organization [facility] Address [address] [place] [address] Phone Care Team Providers Care Medical Historian Name Role Phone Magali Ohara MD Primary Care Provider [phone] Unknown, Unknown Primary Care Provider Jun lugo Encounter Details Date Type Department Care Team (Latest Contact Info) Description 05/03/2018 Transcribe Orders [facility] Laboratory [address] [address] Donna Gipson PA-C [address], [place]. [address] [place] [address] Abdominal pain, epigastric (Primary Dx); Rectal bleeding Social History Tobacco Use Types Packs/Day Years Used Date Smoking Tobacco: Former Smokeless Tobacco: Never Comments Unknown Sex and Gender Information Value Date Recorded Sex Assigned at Female 01/12/2021 9:55 PM EDT Legal Sex Female 9:27 PM EDT Gender Identity Female 01/12/2021 9:55 PM EDT Sexual Orientation Straight 01/12/2021 9: 55 PM EDT documented as of this encounter Plan of Treatment Not on file documented as of this encounter Results * C-Reactive Protein (05/03/2018 10:20 AM EST) C REACTIVE PROTEIN 0.8 0.0 - 4.0 mg/L [facility] Blood 05/03/2018 10:2 0 AM EST 05/03/2018 10:27 AM EST us Donna Gipson PA-C LAB BLOOD ORDERABLES Final Resu lt [address] [address] * (ABNORMAL) Comprehensive metabolic panel (05/03/2018 10:20 AM EST) SODIUM 138 133 - 146 mmol/L [facility] POTASSIUM 3.9 3.3 - 5.1 mmol/L [facility] CHLORIDE 97 96 - 108 mmol/L [facility] CO2 27 21 - 35 mmol/L [facility] BUN 10 6 - 19 mg/dL [facility] CREATININE 0.70 0.5 - 1.5 mg/dL [facility] GLUCOSE 101(H) 70 - 99 mg/dL [facility] ALBUMIN 4.6 3.9 - 4.8 g/dL [facility] TOTAL PROTEIN 7.4 6.5 - 8.0 g/dL [facility] CALCIUM 9.2 8.4 - 10.3 mg/dL [facility] ALKALINE PHOSPHATASE 63 39 - 117 U/L [facility] TOTAL BILIRUBIN 0.4 0.0 - 1.2 mg/dL [facility] AST 16 0 - 37 U/L [facility] ALT 14 0 - 40 U/L [facility] GLOBULIN 2.8 1 - 4.8 g/dL [facility] EGFR 107 >59 mL/min/1.7 3m2 [facility] Comment:If patient is black, multiply result by 1.159. Estimated glomerular filtration rate calculated using the CKD-EPI equation. ANION GAP 18 10 - 20 mmol/L [facility] Blood 05/03/2018 10:2 0 AM EST 05/03/2018 10:27 AM EST us Donna Gipson PA-C LAB BLOOD ORDERABLES Final Resu lt [address] [address] * CBC and differential (05/03/2018 10:20 AM EST) WBC 7.55 3.40 - 11.20 K/uL [facility] RBC 4.55 3.80 - 4.80 M/uL [facility] HGB 14.2 12.0 - 15.0 g/dL [facility] HCT 41.7 36.0 - 46.0 % [facility] PLT 247 130 - 400 K/uL [facility] MCV 91.6 79.0 - 98.0 fL [facility] MCH 31.2 27.0 - 34.8 pg [facility] MCHC 34.1 31.5 - 36.0 g/dL [facility] RDW 11.7 10.8 - 14.6 % [facility] MPV 10.6 9.4 - 12.4 fl [facility] NRBC 0.00 0.00 /100 WBCs [facility] ABSOLUTE NRBC 0.00 0.00 K/uL [facility] DIFF METHOD Auto [facility] NEUTS 72.2 45.30 - 77.70 % [facility] LYMPHS 21.5 12.30 - 39.70 % [facility] MONOS 4.6 4.10 - 12.80 % [facility] EOS 1.1 0 - 7.2 % [facility] BASOS 0.3 0 - 2.80 % [facility] Granulocytes, immature (%) 0.3 0.0 - 0.9 % [facility] ABSOLUTE NEUTS 5.46 1.40 - 7.70 K/uL [facility] ABSOLUTE LYMPHS 1.62 0.60 - 3.20 K/uL [facility] ABSOLUTE MONOS 0.35 0.11 - 0.59 K/uL [facility] ABSOLUTE EOS 0.08 0.01 - 0.50 K/uL [facility] ABSOLUTE BASOS 0.02 0.00 - 0.08 K/uL [facility] Granulocytes, immature 0.02 0.00 - 0.05 K/uL [facility] Blood 05/03/2018 10:2 0 AM EST 05/03/2018 10:27 AM EST us Donna Gipson PA-C LAB BLOOD ORDERABLES Final Resu lt [facility] [address] [place] [address] * Immunoglobulin A (05/03/2018 10:20 AM EST) IgA 197 70 - 400 mg/dL [facility] Blood 05/03/2018 10:2 0 AM EST 05/03/2018 10:27 AM EST us Donna ROACH-Yandy LAB BLOOD ORDERABLES Final Resu lt [facility] [address] [place] [address] * Tissue transglutaminase IgA (05/03/2018 10:20 AM EST) TTG IGA ANTIBODY <1.2 <4.0 (Negative) U/mL [facility] DPT OF LAB MED AND PAT+ Blood 05/03/2018 10:2 0 AM EST 05/03/2018 10:27 AM EST us Donna ROACH-C LAB BLOOD ORDERABLES Final Resu lt Performing Organization Address City/[facility]/ZIP Co de Phone Number [facility] DPT OF LAB MED AND PAT+ [address] [place] [address] documented in this encounter Visit Diagnoses Diagnosis Abdominal pain, epigastric- Primary Rectal bleeding Hemorrhage of rectum and anus documented in this encounter Additional Health Concerns Assessment Noted Time PHQ-2 Depression Total Score: 1 08/01/19 18 11:31 AM EDT documented as of this encounter Care Teams Medical Historian Relationship Specialty Start Date End Date Magali Ohara MD [address] [place] [address], [address] [place] [address] [email or web address] PCP - General 04/23/17 10/04/23 Unknown, MD Alan PCP - General 10/05/23 documented as of this encounter Additional Source Comments The information contained in this document represents components of the legal health record. It is not the complete legal health record.[facility]
--- OUTSIDE RECORDS SUMMARY | 2025-02-03 13:21 | XMS_ITS | Clinical Summary ---
Author Organization [facility] Address [address] [place] [address] Phone Care Team Providers Care Industrial Automation Engineer Name Role Phone Unknown, Unknown Primary Care Provider Jun lugo Allergies Active Allergy Reactions Criticality Noted Date Comments Cat Dander Unknown 09/29/2016 Duck Feathers Allergenic Extract 03/2018 House Dust 07/30/2017 Mold Extracts 07/30/2017 Rabbit Dander 07/30/2017 Medications ketotifen (ALAWAY) 0.025 % (0.035 %) ophthalmic solution 1 drop into affected eye Ophthalmic Twice a day Active tiZANidine (ZANAFLEX) 4 MG tablet Take 1 tablet by mouth every 8 (eight) hours as needed. Active EPINEPHrine (EPIPEN 2-DESEAN) 0.3 mg/0.3 mL auto-injector Injection Active fluticasone propionate (FLONASE) 50 mcg/actuation nasal spray 1 spray by Each Nare route daily. Active cetirizine (ZYRTEC) 10 MG tablet Take 1 tablet by mouth daily. Active hydrocortisone 2.5 % cream 1 application to affected area Externally Once a day Active pregabalin (LYRICA) 75 MG capsuleIndicatio ns:Chronic bilateral low back pain without sciatica,Fibromy algia TAKE 1 CAPSULE BY MOUTH TWICE A DAY 60 capsule 1 Active metroNIDAZOLE (METROCREAM) 0.75 % creamIndications :Other acne Apply topically 2 (two) times a day. 45 g 3 1 Active naproxen (NAPROSYN) 500 MG tabletIndication s:Cervicalgia Take 1 tablet (500 mg total) by mouth 2 (two) times a day with meals. 60 tablet 1 Active famotidine (PEPCID) 20 MG tabletIndication s:Gastroesophage al reflux disease without esophagitis Take 1 tablet (20 mg total) by mouth 2 (two) times a day as needed for heartburn. 60 tablet 11 2 Active Active Problems Problem Noted Date Diagnosed Date Cervicalgia 03/07/2021 Assessment & Plan (03/07/2021 9:00 AM EST): [place] was present with her automotive parts interpreter today in the office during the entire visit. She was diagnosed with a muscle strain of the neck/upper shoulder region which is likely putting pressure against the nerve causing the radiculopathy down the right arm. I reviewed her x-ray from [facility] showing some arthritis but no major issues of the cervical spine. She is on naproxen and I refill this today as this is helping-to be taken with food. She notes that she cannot take prednisone secondary to other medical issues that she has. I gave her some exercises to start on at home and I wrote a referral to physical therapy at [place] at her request. I advised her to use heat to the site and to drink plenty water. She will call if things get worse or if there is any other issues or concerns. She understands and agrees. Nephrolithiasis 01/06/2020 Overview (01/06/2020): Hx Kidney stone 2003. June 2019 she had a UTI with hematuria and right flank pain. Pain persisted following antibiotics but resolved within a few days and has not recurred. Assessment & Plan (07/10/2020 10:53 AM EDT): Normal ultrasound January 2020, no stones seen Cyst of right breast 01/06/2020 Family history of colon cancer 03/30/2018 Overview (08/03/2018): Normal colonoscopy 05/08. Chronic back pain 07/27/2017 Fibromyalgia 07/27/2017 GERD (gastroesophageal reflux disease) 8 Overview (08/03/2018): Normal endoscopy 05/08. Multiple allergies 07/27/2017 Immunizations Immunization Administration Dates Next Due INFLUENZA, SPLIT VIRUS, TRIVALENT W/ PRESERVATIV E IM 01/15/2016,01/08/2015 Influenza Quadrivalent Preservative Free IM 06/2020,01/27/2018 Influenza Recombinant Marcy valent Preservative Free IM 01/04/2019 Tdap 06/04/2016 Family History Medical History Relation Comments Breast cancer Maternal Aunt Fibromyalgia Mother Relation Status Comments Maternal Aunt Mother Social History Tobacco Use Types Packs/Day Years Used Date Smoking Tobacco: Former Smokeless Tobacco: Never Child or Family Care Answer Date Record ed Do you have problems with on e of the following making it difficult for you to work, study, or receive health care? No 01/12/2021 Education Answer Date Recorded Are you interested in more education? Not on lj e 01/13/2023 Are you concerned about learning? Not on file 01/13/2023 No 01/13/2023 No 01/13/2023 Food Answer Date Recorded Within the past 6 months we worried whether our food would run out before we got money to buy more. Never True 01/12/2021 Within the past 6 months the food we bought just didn't last and we didn't have enough money to get more. Never True Residential Stability Answer Date Recor ded What is your housing situation today? I have cordell sing 01/12/2021 How many times have you move d in the past 12 months? Zero (I did not move) 01/12/2021 06 Are you worried that in t he next 2 months, you may not have your own housing to live in? No 01/12/2021 Paying for Meds Answer Date Recorded Do you have trouble paying for medicines? No 01/12/2021 Paying Utility Bills Answer Date Record ed Do you have trouble paying your heating or elect ricity bill? No 01/12/2021 Transportation Answer Date Recorded Has the lack of transportati on kept you from medical appointments or from getting medications? No 01/12/2021 Unemployment Answer Date Recorded Are you currently unemployed or working on a part-time or temporary basis, and looking for work? No 01/12/2021 Digital Access Answer Date Recorded No 09/16/2022 No 09/16/2022 Reliable internet access at home? Not on file 09/16/2022 Device with a working camera? Not on file Comments Unknown Sex and Gender Information Value Date Recorded Sex Assigned at Female 01/12/2021 9:55 PM EDT Legal Sex Female 9:27 PM EDT Gender Identity Female 01/12/2021 9:55 PM EDT Sexual Orientation Straight 01/12/2021 9: 55 PM EDT Last Filed Vital Signs Vital Sign Reading Time Taken Comments Blood Pressure 106/72 07/16/2021 9:56 AM EDT Pulse 95 07/16/2021 9:56 AM EDT Temperature 36.7 C (98 F) 03/07/2021 8:37 AM EST Respiratory Rate - - Oxygen Saturation 98% 07/16/2021 9:56 AM EDT Inhaled Oxygen Concentration - - Weight 53.5 kg (118 lb) 07/16/2021 9:56 AM EDT Height 157.5 cm (5' 2.01 ) 07/16/2021 9:56 AM ED T Body Mass Index 21.58 07/16/2021 9:56 AM EDT Plan of Treatment Health Maintenance Due Date Last Done Comments SMOKING Hx and SMOKELESS TOBACCO SCREENING 1989 HIV ONE-TIME SCREENING (18-65 YEARS) 1994 COLOGUARD 2021 FIT TEST 2021 FOBT 2021 SIGMOIDOSCOPY 2021 VIRTUAL COLONOSCOPY 2021 DEPRESSION SCREENING 01/12/2022 01/12/2021 MAMMOGRAM 05/15/2022 05/15/2021, 04/21, 05/03/2020, Additional history exists PAP SMEAR 06/26/2022 06/27/2019 INFLUENZA VACCINE (#1) 2024 , 01/04/2019, 01/27/2018, Additional history exists COVID-19 VACCINE ( season) 2024 LIPID PANEL 01/15/2026 01/15/2021, 12/19, 06/04/2016 Adult Td,Tdap Booster 06/04/2026 06/04/2016 COLONOSCOPY 05/12/2028 05/12/2018, 04/21, 05/12/2018 COLORECTAL CANCER SCREENING 05/12/2028 HEPATITIS C SCREENING Completed 01/15/2021 HEPATITIS A VACCINES Aged Out No long er eligible based on patient's age to complete this topic HIB VACCINES Aged Out No longer eligi ble based on patient's age to complete this topic MENINGOCOCCAL VACCINES (ACWY) Aged Out No longer eligible based on patient's age to complete this topic MENINGOCOCCAL VACCINES (B) Aged Out N o longer eligible based on patient's age to complete this topic PNEUMOCOCCAL VACCINES (0-49 years) Aged Out No longer eligible based on patient's age to complete this topic Medical Devices Not on file Procedures Procedure Name Priority Date/Time Associated Diagnosis Comments HM MAMMOGRAPHY Routine 05/15/2021 LIPID PANEL Routine 01/15/2021 10:22 AM EDT Annual physical exam HEPATITIS C ANTIBODY, QUALITATIVE Routine 01/15/2021 10:22 AM EDT Need for hepatitis C screening test HM PAP SMEAR FOR RESULT ENTRY ONLY Routine 06/27/2019 COLONOSCOPY FOR RESULT ENTRY ONLY Routine 05/12/2018 from Last 3 Months or Most Recently Relevant to Health Maintenance Results * MAMMOGRAPHY FOR RESULT ENTRY ONLY (05/15/2021) Magali Ohara MD HEALTH MAINTENANCE Final Resu lt * Hepatitis C antibody, qualitative (01/15/2021 10:22 AM EDT) HCV NON-REACTIV E NON-REACTI VE [facility] Blood 01/15/2021 10:2 2 AM EDT 01/15/2021 10:25 AM EDT Magali Ohara MD LAB BLOOD ORDERABLES Final Re sult [facility] [address] [place] [address] * (ABNORMAL) Lipid panel (01/15/2021 10:22 AM EDT) HDL 86 mg/dL [facility] Comment: Interpretation <40 mg/dL: Low HDL cholesterol (major risk factor for CHD) Greater than or equal to 60 mg/dL: High HDL cholesterol ( negative risk factor for CHD) HDL - cholesterol is affected by a number of factors, e.g. smoking, excerise, hormones, sex and age. CHOLESTEROL 247(H) 0 - 240 mg/dL [facility] TRIGLYCERIDES 116 30 - 160 mg/dL [facility] LDL 138(H) 50 - 129 mg/dL [facility] Comment: LDL levels in terms of risk for coronary heart disease: <100 mg/dL: Optimal 100-129 mg/dL: Near or above optimal 130-159 mg/dL: Borderline high 160-189 mg/dL: High >190 mg/dL: Very High CARDIAC RISK RATIO 2.9(L) 3.3 - 4.4 [facility] Blood 01/15/2021 10:2 2 AM EDT 01/15/2021 10:25 AM EDT Magali Ohara MD LAB BLOOD ORDERABLES Final Re sult [address] [address] * PAP SMEAR FOR RESULT ENTRY ONLY (06/27/2019) Pap smear .. Historical Provider HEALTH MAINTENANCE Final Result * COLONOSCOPY FOR RESULT ENTRY ONLY (05/12/2018) Historical Provider HEALTH MAINTENANCE Final Result from Last 3 Months or Most Recently Relevant to Health Maintenance [place] [address] [place] [address] [place], [place] [id number] [place] [facility] O O Care Teams Industrial Automation Engineer Relationship Specialty Start Date End Date Unknown, Unknown, PCP - General 10/05/23 Additional Source Comments The information contained in this document represents components of the legal health record. It is not the complete legal health record.[facility]
== END 2025-02-03 11:04 | disposition home or self-care (01) ==
LOC: HO.HMCC 10:49
PROVIDERS: PCP Internal Medicine; Visit Provider Internal Medicine
DX: M79.7 Fibromyalgia (principal); M51.26 Other intervertebral disc displacement, lumbar region; K21.9 Gastro-esophageal reflux disease without esophagitis; E55.9 Vitamin D deficiency, unspecified; J30.89 Other allergic rhinitis; Z91.09 Other allergy status, other than to drugs and biological substances; M54.50 Low back pain, unspecified; G89.29 Other chronic pain

== ENCOUNTER 2025-04-12 09:53 | Outpatient (AMB) | payer OTHER, SELFPAY ==
[2025-04-12 09:56] VITALS: BP 110/72; PULSE 75; O2SAT 97; BMI 21.8
--- NOTE | 2025-04-12 09:56 | A.OFFPC_ITS ---
Vital Signs 04/12/25 09:56 Height 5 ft 2 in Weight 119 lb BMI 21.8 BP 110/72 Blood Pressure Location Lt brachial Position Sitting Pulse 75 Pulse Source Pulse Oximeter Pulse Oximetry (%) 97 Oxygen Delivery Method Room Air Intake Visit Reasons: Stomach issue Allergies prednisone Adverse Reaction (Mild, Verified 04/12/25 09:57) rectal bleeding cats/dogs Allergy (Unknown, Uncoded 08/29/24 09:34) itch Numerous food and environmenta Allergy (Unknown, Uncoded 08/24/24 08:56) hive Medication List - Last Reconciled 04/12/25 by Rodríguez Bonds MD azelastine intranasal cetirizine 10 mg PO DAILY PRN cholecalciferol (vitamin D3) 50 mcg PO DAILY famotidine 20 mg PO .qd PRN hydrocortisone 1% (Anti-Itch (hydrocortisone)) 1 appl topical BID-QID PRN ketotifen fumarate 0.025%(0.035%) (Alaway) 1 drp ophthalmic (eye) BID lidocaine HCl-hydrocortison ac 3-0.5 % 1 appl [place] BID 10 days nortriptyline 10 mg PO BEDTIME pregabalin 75 mg PO BID 90 days Tobacco use date assessed: 07/05/24 Dental Screening Dental Screen Date: 07/05/24 HPI HPI Comments History of Present Illness Details History of Present Illness The patient is a 49-year-old female presenting for management of stomach discomfort and a request for medication for muscle spasms. Dyspepsia: - The patient has been experiencing stom ach discomfort for the past three weeks, which has been impacting her ability to sleep at night. - She is taking two Pepcid tablets and h as also tried Mylanta, which provided some relief. - She has stopped consuming coffee, soda , and tomatoes to manage her symptoms. Muscle Spasms: - The patient reports having a lot of sp asms in her shoulder and requested a prescription for tizanidine. - She previously took tizanidine 4 mg wi thout side effects but has also tried Flexeril 10 mg in the past, which caused undesirable effects upon waking. Fibromyalgia: - The patient has a history of fibromyal makayla with generalized body aches and pains, which she manages with Lyrica (pregabalin). - Her Lyrica prescription is not due for a refill until April Medications: - Pepcid (famotidine): Taking two tablet s for stomach discomfort. - Mylanta: Used as needed for stomach di scomfort. - Lyrica (pregabalin): For generalized b alonzo aches and pains. PFSH Medical History Ectopic Multiple allergies Herniated lumbar disc without myelopathy GERD (gastroesophageal reflux disease) Fibromyalgia Surgical History S/P NABILA (total abdominal hysterectomy) H/O tubal ligation Family History Maternal Aunt Breast cancer Mother Fibromyalgia Paternal Grandfather Colon cancer Social History Housing: House Patient Tobacco Use Status: Never used Tobacco e-Cigarette/Vaping Use: Never Used Second Hand Smoke Exposure: No service: No Current occupational status: disabled Cognitive needs: No Hearing needs: No Vision needs: No Female Reproductive History Menstrual Age of Menarche: 13 Questionnaire Thrive Questionnaire Date Thrive assessed: 07/05/24 What is your living situation today?: I have a steady place to live Within the past 12 months, did the food you bought not last and you didn't have the money to get more?: Often true Within the past 12 months, did you worry whether your food would run out before you got money to buy more?: Never true Do you have trouble paying for medicines?: No Do you have trouble getting transportation to medical appointments?: No Do you have trouble paying your heating and electricity bill?: No Do you have trouble taking care of your child, family member or friend?: No Do you have trouble with day-to-day activities such as bathing, preparing meals, shopping, managing finances, etc.?: No Are you currently unemployed and looking for a job?: I choose not to answer this question Are you interested in more education?: I choose not to answer this question Currently or been in a relationship where the following occur: No concerns reported THRIVE Score: 1 BEATRIZ-7 AMB Questionnaire BEATRIZ-7 Date BEATRIZ - 7 assessed: 07/05/24 Source: Developed by Radha Naylor B.W. Rony, Randy Agosto and colleagues, with an educational martita from [employer]. Review of Systems Narrative Review of Systems - General: No fever no chills - Neurological: No headaches no dizziness - Ear nose throat: No sore throat no hearing difficulty no ear pain - Cardiovascular: No syncope, no chest pain, no palpitations - Gastrointestinal: No nausea vomiting or diarrhea Physical exam (Primary Care) Vital Signs: Last Vital Signs Pulse 75 04/12/25 09:56 BP 110/72 04/12/25 09:56 Pulse Ox 97 04/12/25 09:56 Oxygen Delivery Method Room Air 04/12/25 09:56 BMI result Body Mass Index 21.8 Tobacco/Smoking Status: Tobacco use Status Tobacco use date assessed 07/05/24 04/12/25 09:57 Patient Tobacco Use Status Never used Tobacco 04/12/25 09:57 e-Cigarette/Vaping Use Never Used 04/12/25 09:57 Thrive Assessment: Date of Thrive Assessment Date Thrive assessed 07/05/24 04/12/25 09:57 Currently or been in a relationship where the following occur: No concerns reported Narrative Physical Exam General: No acute distress HEENT: No acute findings Neck: Supple Respiratory system: Able to talk in full sentences, no audible wheeze Cardiovascular: S1-S2 regular in rate and rhythm Gastrointestinal: Stomach discomfort with pressure epigastric area without guarding or rebound Extremities: No new findings QUALITY CLOTH TESTER: Alert awake oriented x3 motor intact Skin: Normal turgor Coding Level of Care Code Est Pt Level 3 (59005) Diagnoses Epigastric abdominal pain R10.13 Gastroesophageal reflux disease without esophagitis K21.9 Esophagitis presence: without esophagitis Muscle spasm M62.838 Assessment & Plan Assessment & Plan (1) Epigastric abdominal pain: Code(s): R10.13 - Epigastric pain Category: Medical (2) Acid reflux: Code(s): K21.9 - Gastro-esophageal reflux disease without esophagitis Category: Medical Qualifiers: Esophagitis presence: without esophagitis Qualified Code(s): K21.9 - Gastro-esophageal reflux disease without esophagitis (3) Muscle spasm: Code(s): M62.838 - Other muscle spasm Category: Medical Plan Plan - A prescription for an additional stomach medication, such as omeprazole or pantoprazole, will be sent to be taken along with her current Pepcid. - The patient was counseled to eat a bland diet, including boiled rice, pasta, and potatoes, and to avoid fried, oily, spicy foods, and tomatoes until her symptoms improve. - A prescription for tizanidine 2 mg was sent for her shoulder muscle spasms, to be taken up to twice a day. - The refill for Lyrica (pregabalin) was not sent as it is not due until April . - The patient was advised to follow up in April. Medications: New omeprazole 20 mg PO BID 60 caps 0RF 30 days tizanidine 2 mg PO Q12H PRN 60 caps 0RF muscle spasticity 30 days
--- OUTSIDE RECORDS SUMMARY | 2025-04-12 10:01 | XMS_ITS | Clinical Summary ---
Author Organization [facility] Address [address] [place] [id number] Phone Care Team Providers Care Spinning And Winding Supervisor Name Role Phone Unknown, Unknown Primary Care [...] AM EST): [place] was present with her interpreter translator today in the office during the entire visit. She was diagnosed with a muscle strain of the neck/upper shoulder region which is likely putting pressure against the nerve causing the radiculopathy down the right arm. I reviewed her x-ray from [facility] showing some arthritis but no major issues of the cervical spine. She is on naproxen and I refill this today as this is helping-to be taken with food. She notes that she cannot take prednisone secondary to other medical issues that she has. I gave her some exercises to start on at home and I wrote a referral to physical therapy at [place] at her request. I advised her to [...] AM EDT) HCV NON-REACTIV E NON-REACTI VE [facility] Blood 01/15/2021 10:2 2 AM EDT 01/15/2021 10:25 AM EDT Magali Ohara MD LAB BLOOD BKR ORDERABLES Erin l Result [facility] [address] [place] [address] * (ABNORMAL) Lipid panel (01/15/2021 10:22 AM EDT) HDL 86 mg/dL [facility] Comment: Interpretation <40 mg/dL: Low HDL cholesterol (major risk factor for CHD) Greater than or equal to 60 mg/dL: High HDL cholesterol ( negative risk factor for CHD) HDL - cholesterol is affected by a number of factors, e.g. smoking, excerise, hormones, sex and age. CHOLESTEROL 247(H) 0 - 240 mg/dL [facility] TRIGLYCERIDES 116 30 - 160 mg/dL [facility] LDL 138(H) 50 - 129 mg/dL [facility] Comment: LDL levels in terms of risk for coronary heart disease: <100 mg/dL: Optimal 100-129 mg/dL: Near or above optimal 130-159 mg/dL: Borderline high 160-189 mg/dL: High >190 mg/dL: Very High CARDIAC RISK RATIO 2.9(L) 3.3 - 4.4 C [facility] Blood 01/15/2021 10:2 2 AM EDT 01/15/2021 10:25 AM EDT Magali Ohara MD LAB BLOOD BKR ORDERABLES Erin l Result [facility] [address] [place], [place] [address] * PAP SMEAR FOR RESULT ENTRY ONLY (06/27/2019) Pap smear .. Historical Provider HEALTH MAINTENANCE Final Result * COLONOSCOPY FOR RESULT ENTRY ONLY (05/12/2018) Historical Provider HEALTH MAINTENANCE Final Result from Last 3 Months or Most Recently Relevant to Health Maintenance Insurance [facility] [address] [place], [place] [address] [place], [place] [address] [place], [place] [address] O O Care Teams Spinning And Winding Supervisor Relationship Specialty Start Date End Date Unknown, Unknown, PCP - General 10/05/23 Additional Source Comments The information contained in this document represents components of the legal health record. It is not the complete legal health record.[facility]
--- OUTSIDE RECORDS SUMMARY | 2025-04-12 10:01 | XMS_ITS | Encounter Summary ---
Author Organization [facility] Address [address] [place] [id number] Phone Care Team Providers Care Supervisor Mending Name Role Phone Magali Ohara MD Primary Care Provider [phone] Unknown, Unknown Primary Care Provider Jun lugo Encounter Details Date Type Department Care Team (Latest Contact Info) Description 05/03/2018 Transcribe Orders [facility] [address] [address] Donna Gipson PA-C [address], [place]. [address] [place] [address] Abdominal pain, epigastric (Primary Dx); Rectal bleeding [...] REACTIVE PROTEIN 0.8 0.0 - 4.0 mg/L [facility] Blood 05/03/2018 10:2 0 AM EST 05/03/2018 10:27 AM EST us Donna Gipson PA-C LAB BLOOD BKR ORDERABLES Final Result [address] [address] * (ABNORMAL) Comprehensive metabolic panel (05/03/2018 10:20 AM EST) SODIUM 138 133 - 146 mmol/L [facility] POTASSIUM 3.9 3.3 - 5.1 mmol/L [facility] CHLORIDE 97 96 - 108 mmol/L [facility] CO2 27 21 - 35 mmol/L [facility] BUN 10 6 - 19 mg/dL [facility] CREATININE 0.70 0.5 - 1.5 mg/dL [facility] GLUCOSE 101(H) 70 - 99 mg/dL [facility] ALBUMIN 4.6 3.9 - 4.8 g/dL [facility] TOTAL PROTEIN 7.4 6.5 - 8.0 g/dL [facility] CALCIUM 9.2 8.4 - 10.3 mg/dL [facility] ALKALINE PHOSPHATASE 63 39 - 117 U/L [facility] TOTAL BILIRUBIN 0.4 0.0 - 1.2 mg/dL [facility] AST 16 0 - 37 U/L [facility] ALT 14 0 - 40 U/L [facility] GLOBULIN 2.8 1 - 4.8 g/dL [facility] EGFR 107 >59 mL/min/1.7 3m2 [facility] Comment:If patient is black, multiply result by 1.159. Estimated glomerular filtration rate calculated using the CKD-EPI equation. ANION GAP 18 10 - 20 mmol/L [facility] Blood 05/03/2018 10:2 0 AM EST 05/03/2018 10:27 AM EST us Donna Gipson PA-C LAB BLOOD BKR ORDERABLES Final Result [address] [address] * CBC and differential (05/03/2018 10:20 AM EST) WBC 7.55 3.40 - 11.20 K/uL [facility] RBC 4.55 3.80 - 4.80 M/uL [facility] HGB 14.2 12.0 - 15.0 g/dL [facility] HCT 41.7 36.0 - 46.0 % [facility] PLT 247 130 - 400 K/uL [facility] MCV 91.6 79.0 - 98.0 fL [facility] MCH 31.2 27.0 - 34.8 pg [facility] MCHC 34.1 31.5 - 36.0 g/dL [facility] RDW 11.7 10.8 - 14.6 % [facility] MPV 10.6 9.4 - 12.4 fl [facility] NRBC 0.00 0.00 /100 WBCs [facility] ABSOLUTE NRBC 0.00 0.00 K/uL [facility] DIFF METHOD Auto [facility] NEUTS 72.2 45.30 - 77.70 % [facility] LYMPHS 21.5 12.30 - 39.70 % [facility] MONOS 4.6 4.10 - 12.80 % [facility] EOS 1.1 0 - 7.2 % [facility] BASOS 0.3 0 - 2.80 % [facility] Granulocytes, immature (%) 0.3 0.0 - 0.9 % [facility] ABSOLUTE NEUTS 5.46 1.40 - 7.70 K/uL [facility] ABSOLUTE LYMPHS 1.62 0.60 - 3.20 K/uL [facility] ABSOLUTE MONOS 0.35 0.11 - 0.59 K/uL [facility] ABSOLUTE EOS 0.08 0.01 - 0.50 K/uL [facility] ABSOLUTE BASOS 0.02 0.00 - 0.08 K/uL [facility] Granulocytes, immature 0.02 0.00 - 0.05 K/uL [facility] Blood 05/03/2018 10:2 0 AM EST 05/03/2018 10:27 AM EST us Donna Gipson PA-C LAB BLOOD BKR ORDERABLES Final Result [facility] [address] [place] [address] * Immunoglobulin A (05/03/2018 10:20 AM EST) IgA 197 70 - 400 mg/dL [facility] Blood 05/03/2018 10:2 0 AM EST 05/03/2018 10:27 AM EST us Donna ROACH-Yandy LAB BLOOD BKR ORDERABLES Final Result [facility] [address] [place] [address] * Tissue transglutaminase IgA (05/03/2018 10:20 AM EST) TTG IGA ANTIBODY <1.2 <4.0 (Negative) U/mL [facility] DPT OF LAB MED AND PAT+ Blood 05/03/2018 10:2 0 AM EST 05/03/2018 10:27 AM EST us Donna ROACH-Yandy LAB BLOOD BKR ORDERABLES Final Result [facility] DPT OF LAB MED AND PAT+ [address] [place] [address] documented in this encounter Visit Diagnoses Diagnosis Abdominal pain, epigastric- Primary Rectal bleeding Hemorrhage of rectum and anus documented in this encounter Additional Health Concerns Assessment Noted Time PHQ-2 Depression Total Score: 1 08/01/19 18 11:31 AM EDT documented as of this encounter Care Teams Supervisor Mending Relationship Specialty Start Date End Date Magali Ohara MD [address] [place] [address], [address] [place] [address] [email or web address] PCP - General 04/23/17 10/04/23 Unknown, MD Alan PCP - General 10/05/23 documented as of this encounter Additional Source Comments The information contained in this document represents components of the legal health record. It is not the complete legal health record.[facility]
== END 2025-04-12 10:14 | disposition home or self-care (01) ==
LOC: HO.HMCC 09:54
PROVIDERS: PCP Internal Medicine; Visit Provider Internal Medicine
DX: R10.13 Epigastric pain (principal); K21.9 Gastro-esophageal reflux disease without esophagitis; M62.838 Other muscle spasm